=== PATIENT | female | born 1940 | race African-American/Black ===

== ENCOUNTER 2017-04-17 06:57 | Day surgery (SDC) | payer MEDICARE, MEDICAID ==
[~2017-04-17 06:57] MED LIST: FENTANYL CITRATE INJ/PF 100 MCG/2 ML AMPUL ONE; KETOROLAC TROMETHAMINE 0.45% 4 DROP/0.4 ML DROPERETTE OS PRN; MIDAZOLAM 2 MG/2 ML INJ ONE
[2017-04-17] MEDS ORDERED: LIDOCAINE 1% INJ-PF (10 MG/ML) 30 ML SDV ONE (07:08)
[2017-04-17] MEDS ORDERED: CHONDR SU A NA/HYALUR INTRAOC KIT (SURGICARE) ONE (07:08)
[2017-04-17] MEDS ORDERED: EPINEPHRINE INJ/PF 1 MG/1 ML AMPULE ONE (07:08)
[2017-04-17] MEDS: BESIFLOXACIN HCL 0.6% OPH SUSP 5 ML BOTTLE OS PRN ×4 (07:24→08:41)
[2017-04-17] MEDS: CYCLOPENTOLATE 0.2%/PHENYLEPHRINE 1% OPH SOLN 2 ML OS PRN ×3 (07:24→07:44)
[2017-04-17] MEDS: TROPICAMIDE 1% OPH SOLN 3 ML OS PRN ×3 (07:24→07:44)
[2017-04-17] MEDS: TETRACAINE HCL 0.5% OPH SOLN 2 ML OS PRN ×3 (07:24→07:53)
[2017-04-17] MEDS ORDERED: LIDOCAINE 2% INJ (20 MG/ML) 20 ML MDV ONE (08:12)
[2017-04-17] MEDS ORDERED: BUPIVACAINE HCL 0.75% INJ/PF (7.5 MG/1 ML) 10 ML SDV ONE (08:13)
[2017-04-17] MEDS ORDERED: HYALURONIDASE INJ 150 UNIT/1 ML VIAL ONE (08:13)
[2017-04-17] MEDS: TOBRAMYCIN SULFATE/DEXAMETH OPH OINTMENT 3.5 GM ONE ×2 (08:41)
[2017-04-17] MEDS ORDERED: CHONDR SU A NA/HYALUR SOD 0.5 ML DISP.SYRIN ONE (10:23)
[2017-04-17] MEDS ORDERED: FLUMAZENIL INJ 0.5 MG/5 ML VIAL IV ONE (11:45)
--- NOTE | 2017-04-21 12:18 | [facility] DISCHARGE SUMMARY E ---
[facility] Discharge Summary NAME: JOHNATHAN FUNK AGE: 76Y ADMITTED: 04/17/2017 DISCHARGED: 04/17/2017 HOSPITAL COURSE: This is a 76-year-old female who underwent complex cataract extraction of the left eye. DIAGNOSES: 1. Cataract, left eye. 2. Pupil miosis, left eye. INDICATIONS: She underwent surgery because she was difficulty seeing words on the TV as well as unable to see words in her bible. DISCHARGE INSTRUCTIONS: She should be on a regular diet. No bending at her waist. No heavy lifting. She should keep her pressure patch on until I see her for a 1 day visit and not use any drops. I will see her for her 1 day postoperative tomorrow. DICTATING PHYSICIAN: FLORENCIO CASTELLANO M.D. [id number] PHY#: [id number] ID: [id number] JOB#: [id number] ACCT: [id number] cc:FLORENCIO CASTELLANO M.D. >
--- NOTE | 2017-04-21 12:19 | [facility] OPERATIVE REPORT E ---
[facility] Operative Report NAME: JOHNATHAN FUNK AGE: 76Y DATE OF SURGERY: 04/17/2017 ROOM: PREOPERATIVE DIAGNOSES: 1. Cataract, left eye. 2. Pupil miosis of the left eye. POSTOPERATIVE DIAGNOSES: 1. Cataract, left eye. 2. Pupil miosis of the left eye. OPERATION: Complex cataract extraction with use of a Malyugin ring due to pupil miosis. SURGEON: FLORENCIO CASTELLANO M.D. ANESTHESIA: Retrobulbar block with 2% lidocaine with 0.75% Marcaine in a 50/50 mixture with vitreous. PROCEDURE: After obtaining appropriate consent, the patient's left eye was prepped and draped in sterile fashion as well as the surgeon in a sterile manner and cataract surgery was started. First a paracentesis blade was used to make a small side-port incision. Viscoelastic was used to inflate the anterior chamber. Next a 2.4 mm incision was made with the paracentesis blade. A continuous capsulorrhexis incision was made using a cystotome and Utrata forceps. Following this hydrodissection was carried out to make the lens fully loose and mobile and it was rotated 90 degrees. Following this, a ozvxtq-zrh-thqnprd technique was used to phacoemulsify the lens with a CDE of 8.93. The remaining cortex was removed with irrigation/aspiration. Provisc was instilled into the capsular bag to inflate the bag. A SN60WF, 21.0 diopter lens was placed. The remaining viscoelastic material was removed with irrigation/aspiration. Following this, a 10-0 nylon suture was used to close the incision and it was found to be watertight. Vigamox was instilled in the eye and a protective shield was placed over the eye. The patient returned to the postoperative recovery in stable condition. Prior to making the capsulorrhexis, a Malyugin ring was inserted due to pupil miosis. This was removed at the end of the case. Prior to performing the procedure, a retrobulbar block was performed due to patient eye movement. Patient tolerated this well. Due to this, a pressure *------* to discharge. DICTATING PHYSICIAN: FLORENCIO CASTELLANO M.D. [id number] PHY#: [id number] ID: [id number] JOB#: [id number] ACCT: [id number] cc:FLORENCIO CASTELLANO M.D. >
== END 2017-04-17 10:08 | disposition home or self-care (01) ==
LOC: SC 06:57
PROVIDERS: ATTEND Internal Medicine
PROC: 08RK3JZ Replacement of Left Lens with Synthetic Substitute, Percutaneous Approach (ICD-10-PCS; principal; 2017-04-17 08:00)
DX: H25.812 Combined forms of age-related cataract, left eye (principal); Z96.1 Presence of intraocular lens; H40.1133 Primary open-angle glaucoma, bilateral, severe stage; E11.9 Type 2 diabetes mellitus without complications; H57.03 Miosis; I10 Essential (primary) hypertension; J44.9 Chronic obstructive pulmonary disease, unspecified; M19.90 Unspecified osteoarthritis, unspecified site; G40.909 Epilepsy, unspecified, not intractable, without status epilepticus; Z96.641 Presence of right artificial hip joint; Z79.02 Long term (current) use of antithrombotics/antiplatelets; I25.2 Old myocardial infarction; Z79.82 Long term (current) use of aspirin; Z86.73 Personal history of transient ischemic attack (TIA), and cerebral infarction without residual deficits
CPT/HCPCS: 66982; 82962; V2632; J3490 ×7; J2250; A9270; J0171; J3010; J3470; 142

== ENCOUNTER 2017-12-11 00:51 | Inpatient (IN) | payer MEDICARE, MEDICAID ==
[2017-12-11] MEDS ORDERED: HYDROCODONE/ACETAMINOPHEN 5-325 MG TABLET PO ONE (01:07)
--- NOTE | 2017-12-11 01:10 | ER Document Report ---
ED Medical Screen (RME) - General Chief Complaint: Fall Stated Complaint: FALL/RIGHT THIGH PAIN Time Seen by Provider: 12/11/17 01:05 Mode of Arrival: Wheelchair Information source: Relative Notes: 76-year-old female presents to ED for a fall around 4:30 PM today. Her son picked her up and put her in the chair. Patient is here in the emergency room now for complaint of severe pain in [place]. Daughter states that they tried cold packs hot packs gave the care of body pain medicine and rub green alcohol on her leg and patient is continued to cry in pain. Patient has dementia. Patient has severe pain with any movement that moves the thigh. Patient is sitting in a chair unable to tell if there is any internal or external rotation. I have greeted and performed a rapid initial assessment of this patient. A comprehensive ED assessment and evaluation of the patient, analysis of test results and completion of medical decision making process will be conducted by an additional ED providers. TRAVEL OUTSIDE OF THE [place] IN LAST 30 DAYS: No - Related Data Allergies/Adverse Reactions: Penicillins Allergy (Mild, Verified 04/17/17 07:32) prednisone Allergy (Mild, Verified 04/17/17 07:32) Past Medical History - Past Medical History Cardiac Medical History: Reports: Hx Congestive Heart Failure, Hx Coronary Artery Disease, Hx Heart Attack - JANUARY 2013, Hx Hypercholesterolemia, Hx Hypertension Pulmonary Medical History: Reports: Hx Asthma Denies: Hx Tuberculosis Neurological Medical History: Reports: Hx Seizures - 2016. Denies: Hx Cerebrovascular Accident Endocrine Medical History: Reports: Hx Diabetes Mellitus Type 2 Renal/ Medical History: Reports: Hx Kidney Stones. Denies: Hx Peritoneal Dialysis GI Medical History: Denies: Hx Hepatitis, Hx Hiatal Hernia, Hx Ulcer Musculoskeltal Medical History: Reports Hx Arthritis Psychiatric Medical History: Reports: Hx Dementia, Hx Depression Infectious Medical History: Denies: Hx Hepatitis Past Surgical History: Reports: Hx Cardiac Catheterization, Hx Coronary Stent - 2002, 2012, Hx Orthopedic Surgery - TOTAL RIGHT HIP. Denies: Hx Appendectomy, Hx Bowel Surgery, Hx Section, Hx Cholecystectomy, Hx Coronary Artery Bypass Graft, Hx Gastric Bypass Surgery, Hx Herniorrhaphy, Hx Hysterectomy, Hx Mastectomy, Hx Open Heart Surgery, Hx Pacemaker, Hx Tonsillectomy, Hx Tubal Ligation - Immunizations Hx Diphtheria, Pertussis, Tetanus Vaccination: Yes
--- NOTE | 2017-12-11 01:53 | RADIOLOGY REPORT (SQ) ---
EXAM DESCRIPTION: 1. Single view pelvis with 2 views of the right hip. 2. 2 views of the right femur. CLINICAL HISTORY: fell pain in right leg COMPARISON: None. FINDINGS/IMPRESSION: There is a single view of the pelvis, 2 views of the right hip, and 2 views of the right femur. Right total hip arthroplasty. Osteopenia. Joint space narrowing of the left hip. Oblique mildly displaced fracture of the proximal right femoral diaphysis just below the distal tip of the intramedullary component of the right hip prosthesis.
--- NOTE | 2017-12-11 01:55 | RADIOLOGY REPORT (SQ) ---
EXAM DESCRIPTION: CHEST SINGLE VIEW CLINICAL HISTORY: FEMUR FX COMPARISON: 01/14/2016 FINDINGS: Single frontal view of the chest. Atherosclerotic calcification and tortuosity of the thoracic aorta. Heart is not enlarged. No consolidation, pneumothorax, or pleural effusion. No displaced rib fractures identified. Upper abdominal soft tissues are unremarkable. IMPRESSION: 1. No acute pulmonary process identified.
[2017-12-11] MEDS ORDERED: MORPHINE SULFATE 10 MG/ML INJ IV ONE (02:16)
--- NOTE | 2017-12-11 02:19 | ER Document Report ---
ED General - General Chief Complaint: Thigh Pain Stated Complaint: FALL/RIGHT THIGH PAIN Time Seen by Provider: 12/11/17 01:05 Mode of Arrival: Wheelchair Notes: Patient is a 76-year-old female presents with complaint of pain in the right thigh. She fell trying to back in the bed. She does have history of previous hip replacement was done by Dr. Clarke many years ago. Dr. Clarke since retired. No fevers. No vomiting. She said she did bump her head but has no headache and no loss of consciousness and is not nauseous. She is not on blood thinners. No neck or back pain. She denies any other locations of pain. No other complaints at this time. Her primary care doctor is Dr. Feldman. TRAVEL OUTSIDE OF THE [place] IN LAST 30 DAYS: No - Related Data Allergies/Adverse Reactions: Penicillins Allergy (Mild, Verified 04/17/17 07:32) prednisone Allergy (Mild, Verified 04/17/17 07:32) Past Medical History - General Information source: Relative - Social History Smoking Status: Never Smoker Family History: Reviewed & Not Pertinent Patient has suicidal ideation: No Patient has homicidal ideation: No - Past Medical History Cardiac Medical History: Reports: Hx Congestive Heart Failure, Hx Coronary Artery Disease, Hx Heart Attack - JANUARY 2013, Hx Hypercholesterolemia, Hx Hypertension Pulmonary Medical History: Reports: Hx Asthma Denies: Hx Tuberculosis Neurological Medical History: Reports: Hx Seizures - 2016. Denies: Hx Cerebrovascular Accident Endocrine Medical History: Reports: Hx Diabetes Mellitus Type 2 Renal/ Medical History: Reports: Hx Kidney Stones. Denies: Hx Peritoneal Dialysis GI Medical History: Denies: Hx Hepatitis, Hx Hiatal Hernia, Hx Ulcer Musculoskeltal Medical History: Reports Hx Arthritis Psychiatric Medical History: Reports: Hx Dementia, Hx Depression Infectious Medical History: Denies: Hx Hepatitis Past Surgical History: Reports: Hx Cardiac Catheterization, Hx Coronary Stent - 2002, 2012, Hx Orthopedic Surgery - TOTAL RIGHT HIP. Denies: Hx Appendectomy, Hx Bowel Surgery, Hx Section, Hx Cholecystectomy, Hx Coronary Artery Bypass Graft, Hx Gastric Bypass Surgery, Hx Herniorrhaphy, Hx Hysterectomy, Hx Mastectomy, Hx Open Heart Surgery, Hx Pacemaker, Hx Tonsillectomy, Hx Tubal Ligation - Immunizations Hx Diphtheria, Pertussis, Tetanus Vaccination: Yes Hx Pneumococcal Vaccination: 07/04/11 Review of Systems - Review of Systems Notes: My Normal Review Basic REVIEW OF SYSTEMS: CONSTITUTIONAL : Denies fever, chills, or sweats. Denies recent illness. EENT: Denies eye, ear, throat, or mouth pain or symptoms. Denies nasal or sinus congestion. RESPIRATORY: Denies cough, cold, or chest congestion. Denies shortness of breath, difficulty breathing, or wheezing. GASTROINTESTINAL: Denies abdominal pain. Denies nausea, vomiting, or diarrhea. Denies constipation. Last BM: MUSCULOSKELETAL: Right thigh pain. SKIN: Denies rash or skin lesions. NEUROLOGICAL: Denies altered mental status or loss of consciousness. Denies headache. Denies weakness or paralysis or loss of use of either side. Denies problems with gait or speech. Denies sensory or motor loss. ALL OTHER SYSTEMS REVIEWED AND NEGATIVE. Physical Exam - Vital signs Vitals: Temp Pulse Resp BP Pulse Ox 96.7 F L 76 16 109/46 L 100 12/11/17 01:07 12/11/17 01:12/11/17 01:12/11/17 01:12/11/17 01:07 - Notes Notes: General Appearance: Well nourished, alert, cooperative, no acute distress, moderate obvious discomfort. Vitals: reviewed, See vital signs table. Head: no swelling or tenderness to the head Eyes: PERRL, EOMI, Conjuctiva clear Mouth: No decreasd moisture Neck: Supple, no neck tenderness, No step offs or deformities. Lungs: No wheezing, No rales, No rhonci, No accessory muscle use, good air exchange bilaterally. Heart: Normal rate, Regular rythm, No murmur, no rub Abdomen: Normal BS, soft, No rigidity, No abdominal tenderness, No guarding, no rebound, no abdominal masses, no organomegaly Extremities: strength 5/5 in all extremities, good pulses in all extremities, pain to palpation of left thigh. Pelvis is stable. No pain to palpation of the remainder of the right lower extremit. both uppr extremities and left lower extremity have no pain with range of motion or palpation.no swelling or tenderness in the extremities, no edema. Skin: warm, dry, appropriate color, no rash Neuro: speech clear, oriented x 3, normal affect, responds appropriately to questions. Cranial nerves II through XII are intact. Distal sensation intact. No focal weakness on exam with exception of patient not wanting to move her right leg because of pain. Course - Re-evaluation Re-evalutation: 12/11/17 05:21 Patient does have some anemia. I reviewed her previous labs and appears a hemoglobin usually runs between 8 and 9. Tonight 7.8. I will give her some blood so that she does have a proper hemoglobin in case she does need surgery. I did explain this to the patient and her daughter and they agree with plan. I did speak with Dr. Arteaga who agrees to admit the patient. I have put in a consult for Dr. Johnson who is covering for orthopedics. Dictation of this chart was performed using voice recognition software; therefore, there may be some unintended grammatical errors. 12/11/17 05:22 - Vital Signs Vital signs: Temp Pulse Resp BP Pulse Ox 96.7 F L 76 16 109/46 L 100 12/11/17 01:07 12/11/17 01:07 12/11/17 01:07 12/11/17 01:07 12/11/17 05:00 - Laboratory Result Diagrams: 12/11/17 02:58 12/11/17 02:58 Laboratory results interpreted by me: 12/11/17 12/11/17 12/11/17 02:58 02:58 05:08 RBC 2.56 L Hgb 7.8 L Hct 23.0 L Plt Count 98 L Sodium 134.5 L BUN 27 H Est GFR ( Amer) 52 L Est GFR (Non-Af Amer) 43 L Glucose 117 H Crossmatch See Detail Discharge - Discharge Clinical Impression: Anemia Qualifiers: Anemia type: unspecified type Qualified Code(s): D64.9 - Anemia, unspecified Femur fracture, right Qualifiers: Encounter type: initial encounter Femur location: unspecified portion of femur Fracture type: closed Fracture morphology: unspecified fracture morphology Qualified Code(s): S72.91XA - Unspecified fracture of right femur, initial encounter for closed fracture Condition: Stable Disposition: ADMITTED INPATIENT Admitting Provider: Erasmo Unit Admitted: Telemetry Referrals: TRIXIE FELDMAN MD [Primary Care Provider] - Follow up as needed
[2017-12-11 03:15] LABS: ABSOLUTE EOSINOPHILS # (AUTO) 0.1 10^3/uL (0.0-0.6); ABSOLUTE LYMPHOCYTES (AUTO) 1.4 10^3/uL (0.5-4.7); ABSOLUTE MONOCYTES (AUTO) 0.4 10^3/uL (0.1-1.4); BASOPHILS % (AUTO) 0.7 % (0-2); EOSINOPHILS % (AUTO) 1.5 % (0-6); LYMPHOCYTES % (AUTO) 20.1 % (13-45); MEAN CORPUSCULAR HEMOGLOBIN 30.6 pg (27.0-33.4); MEAN CORPUSCULAR VOLUME 90 fl (80-97); MONOCYTES % (AUTO) 6.2 % (3-13); RED BLOOD COUNT 2.56 10^6/uL (3.72-5.28); RED CELL DISTRIBUTION WIDTH 12.8 % (11.5-14.0); SEGMENTED NEUTROPHILS % (AUTO) 71.5 % (42-78); TOTAL CELLS COUNTED % (AUTO) 100 %
[2017-12-11 03:19] LABS: INTERNATIONAL RATION (INR) 1.03; PROTHROMBIN TIME 14.2 SEC (11.4-15.4)
[2017-12-11 03:20] LABS: PARTIAL THROMBOPLASTIN TIME 29.4 SEC (23.5-35.8)
[2017-12-11 03:27] LABS: ANION GAP 9 (5-19); BLOOD UREA NITROGEN 27 mg/dL (7-20); CALCIUM 9.4 mg/dL (8.4-10.2); CARBON DIOXIDE 24 mmol/L (22-30); CHLORIDE 102 mmol/L (98-107); GLUCOSE 117 mg/dL (75-110); POTASSIUM 4.4 mmol/L (3.6-5.0); SODIUM 134.5 mmol/L (137-145)
[2017-12-11 03:35] LABS: PLATELET COUNT 98 10^3/uL (150-450)
[2017-12-11 03:38] LABS: HEMOGLOBIN 7.8 g/dL (12.0-15.5)
[2017-12-11] MEDS ORDERED: NORMAL SALINE 250 ML IV PRN (05:11)
--- NOTE | 2017-12-11 06:58 | PDOC CONSULTATION ---
Consultation Consult Date: 12/11/17 Consult reason:: Right femur fracture History of Present Illness Admission Date/PCP: 12/11/17 06:02 TRIXIE FELDMAN History of Present Illness: JOHNATHAN FUNK is a 76 year old female The patient is a 76-year-old black female with a history of chronic anemia who is status post a right hip arthroplasty at some point in the distant past. She fell yesterday and sustained a right periprosthetic femur fracture. She is brought to the emergency room. Anemia is being treated with transfusion. Orthopedics is consulted for fracture management. Past Medical History Cardiac Medical History: Reports: Congestive Heart Failure, Coronary Artery Disease, Myocardial Infarction - JANUARY 2013, Hyperlipidema, Hypertension Pulmonary Medical History: Reports: Asthma Denies: Tuberculosis Neurological Medical History: Reports: Seizures - 2016 Endocrine Medical History: Reports: Diabetes Mellitus Type 2 GI Medical History: Denies: Hepatitis, Hiatal Hernia Musculoskeltal Medical History: Reports: Arthritis Psychiatric Medical History: Reports: Dementia, Depression Hematology: Reports: Anemia Denies: Sickle Cell Disease Past Surgical History Past Surgical History: Reports: Cardiac Catheterization, Coronary Stent - 2002, 2012, Orthopedic Surgery - TOTAL RIGHT HIP Denies: Amputation, Appendectomy, Section, Cholecystectomy, Coronary Artery Bypass Graft, Gastric Bypass Surgery, Herniorrhaphy, Hysterectomy, Mastectomy, Pacemaker, Tonsillectomy, Tubal Ligation Social History Information Source: Patient, [facility] Records Smoking Status: Never Smoker Frequency of Alcohol Use: None Hx Recreational Drug Use: No Drugs: None Hx Prescription Drug Abuse: No Family History Family History: Reviewed & Not Pertinent Parental Family History Reviewed: No Children Family History Reviewed: No Sibling(s) Family History Reviewed.: No Medication/Allergy Home Medications: Aspirin [Ecotrin 81 mg EC Tablet] 81 mg PO DAILY #30 tabec 01/19/16 Clopidogrel Bisulfate [Plavix 75 mg Tablet] 75 mg PO DAILY #30 tablet 01/19/16 Famotidine 20 mg PO BID #60 tablet 01/19/16 Haloperidol [Haldol 0.5 mg Tablet] 0.25 mg PO Q12 #30 tablet 01/19/16 Levetiracetam 500 mg PO BID #300 ml 01/19/16 Metoprolol Tartrate [Lopressor 50 mg Tablet] 50 mg PO Q12 #60 tablet 01/19/16 Mirtazapine [Remeron 15 mg Tablet] 30 mg PO QHS #30 tablet 01/19/16 Multivitamin [Tab-A-Mikael (Multiple Vitamin) Tablet] 1 tab PO DAILY #30 tablet Rivastigmine [Exelon 4.6 mg/24 Hr Transdermal Patch] 1 each TD NOON #30 patch.td24 01/19/16 Simvastatin [Zocor 10 mg Tablet] 10 mg PO QHS #30 tablet 01/19/16 Valsartan [Diovan 160 mg Tablet] 320 mg PO DAILY #30 tablet 01/19/16 Besifloxacin HCl [Besivance 0.6% Oph Susp 5 ml] 1 drop OP TID 04/14/17 Difluprednate [Durezol] 1 drop OP ASDIR PRN 04/14/17 Nepafenac [Ilevro] 1 drop OP ASDIR PRN 04/14/17 Sitagliptin Phosphate [Januvia 50 mg Tablet] 50 mg PO DAILY 04/14/17 Allergies/Adverse Reactions: Penicillins Allergy (Mild, Verified 04/17/17 07:32) prednisone Allergy (Mild, Verified 04/17/17 07:32) Review of Systems All systems: as per PMH Physical Exam Vital Signs: Temp Pulse Resp BP Pulse Ox 36.6 C 76 13 117/42 L 100 12/11/17 06:25 12/11/17 01:07 12/11/17 06:37 12/11/17 06:37 12/11/17 06:37 Physical Exam: Patient is largely nonverbal this morning. Lying on ER [place]. Accompanied by family member General appearance: PRESENT: no acute distress Head exam: PRESENT: normocephalic Respiratory exam: PRESENT: unlabored Cardiovascular exam: PRESENT: RRR Pulses: PRESENT: +1 pedal pulses bilateral Vascular exam: PRESENT: normal capillary refill GI/Abdominal exam: PRESENT: soft Rectal exam: PRESENT: deferred Extremities exam: PRESENT: other - Right lower extremity slightly internally rotated. Neurovascular examination of the foot is intact. Neurological exam: PRESENT: alert, awake, oriented to person, oriented to place , oriented to time, oriented to situation. ABSENT: motor sensory deficit Psychiatric exam: PRESENT: appropriate affect, flat affect. ABSENT: homicidal ideation, suicidal ideation Skin exam: PRESENT: dry, intact, warm. ABSENT: cyanosis, rash Results Impressions: Femur X-Ray 12/11/17 01:05 FINDINGS/IMPRESSION: There is a single view of the pelvis, 2 views of the right hip, and 2 views of the right femur. Right total hip arthroplasty. Osteopenia. Joint space narrowing of the left hip. Oblique mildly displaced fracture of the proximal right femoral diaphysis just below the distal tip of the intramedullary component of the right hip prosthesis. Hip/Pelvis X-Ray 12/11/17 01:05 FINDINGS/IMPRESSION: There is a single view of the pelvis, 2 views of the right hip, and 2 views of the right femur. Right total hip arthroplasty. Osteopenia. Joint space narrowing of the left hip. Oblique mildly displaced fracture of the proximal right femoral diaphysis just below the distal tip of the intramedullary component of the right hip prosthesis. Status: Imported from PACS Assessment & Plan - Diagnosis (1) Periprosthetic fracture around internal prosthetic hip joint Is this a current diagnosis for this admission?: Yes Plan: 76-year-old black female with multiple comorbidities with a right femoral periprosthetic fracture around a hybrid (cemented stem, press-fit cup) hip arthroplasty. Stem appears to be solid in the proximal femur, cup demonstrates no eccentric wear.Plan for ORIF pendingfm edical [place] and OR availability - Time Time Spent: 50 to 70 Minutes Anticipated discharge: SNF Within: Other
--- NOTE | 2017-12-11 09:23 | EKG REPORT ---
SEVERITY:- ABNORMAL ECG - SINUS RHYTHM FIRST DEGREE AV BLOCK PROBABLE ANTEROSEPTAL INFARCT, AGE INDETERM ABNORMAL T, CONSIDER ISCHEMIA, ANT-LAT LEADS : Confirmed by: Gopi Camarillo 11-Dec-2017 09:21:54
[2017-12-11] MEDS ORDERED: INSULIN LISPRO 100 UNIT/ML 3 ML VIAL SUBCUT PRN (09:26)
[2017-12-11] MEDS ORDERED: GLUCAGON,HUMAN RECOMB 1 MG INJ IM PRN (09:26)
[2017-12-11] MEDS ORDERED: DEXTROSE 50%-WATER 25 GM/50 ML DISP.SYRIN IV PRN ×2 (09:26)
[2017-12-11] MEDS ORDERED: DEXTROSE 40% GEL 15 GM TUBE PO PRN ×2 (09:26)
[2017-12-11] MEDS ORDERED: LANSOPRAZOLE 30 MG TAB.RAP.DR PO ONE ×2 (09:45→14:00)
[2017-12-11] MEDS: HYDROMORPHONE HCL INJ/PF 2 MG/ML AMPULE IV PRN ×3 (10:14→21:19)
--- NOTE | 2017-12-11 10:56 | PDOC CONSULTATION ---
Consultation Consult Date: 12/11/17 Attending physician:: TRIXIE FELDMAN Consult reason:: Preop clearance, abnormal EKG History of Present Illness Admission Date/PCP: 12/11/17 06:02 TRIXIE FELDMAN Patient complains of: Hip pain History of Present Illness: The patient is a 76-year-old black female with a history of chronic anemia who is status post a right hip arthroplasty at some point in the distant past. She fell yesterday and sustained a right periprosthetic femur fracture. She is brought to the emergency room. Anemia is being treated with transfusion. Orthopedics is consulted for fracture management. This history was reviewed and confirmed. Patient's daughter and granddaughter at bedside. They claim that patient slipped and fell. There was no loss of consciousness. Patient does have known history of coronary artery disease with 2 prior to stent placement. Last stent was approximately 3 years ago. They also gave history of a prior myocardial infarction. 12-lead EKG obtained showed evidence of old infarction. EKG is relatively unchanged. Patient on repeated questioning denies any chest pain. There is no history of shortness of breath. Patient has been ambulatory but activities has been noted to be limited. Past Medical History Cardiac Medical History: Reports: Congestive Heart Failure, Coronary Artery Disease, Myocardial Infarction - JANUARY 2013, Hyperlipidema, Hypertension Pulmonary Medical History: Reports: Asthma Denies: Tuberculosis Neurological Medical History: Reports: Seizures - 2016 Endocrine Medical History: Reports: Diabetes Mellitus Type 2 GI Medical History: Denies: Hepatitis, Hiatal Hernia Musculoskeltal Medical History: Reports: Arthritis Psychiatric Medical History: Reports: Dementia, Depression Hematology: Reports: Anemia Denies: Sickle Cell Disease Past Surgical History Past Surgical History: Reports: Cardiac Catheterization, Coronary Stent - 2002, 2012, Orthopedic Surgery - TOTAL RIGHT HIP Denies: Amputation, Appendectomy, Section, Cholecystectomy, Coronary Artery Bypass Graft, Gastric Bypass Surgery, Herniorrhaphy, Hysterectomy, Mastectomy, Pacemaker, Tonsillectomy, Tubal Ligation Social History Information Source: Relative Smoking Status: Never Smoker Frequency of Alcohol Use: None Hx Recreational Drug Use: No Drugs: None Hx Prescription Drug Abuse: No - Advance Directive Resuscitation Status: Full Code Surrogate healthcare decision maker:: Patient's daughter and granddaughter are the surrogate decision maker Family History Family History: Hypertension Parental Family History Reviewed: Yes Children Family History Reviewed: Yes Sibling(s) Family History Reviewed.: Yes Medication/Allergy Allergies/Adverse Reactions: Penicillins Allergy (Mild, Verified 04/17/17 07:32) prednisone Allergy (Mild, Verified 04/17/17 07:32) Review of Systems Review of Systems: Please see history of present illness and past medical history as wall. Constitutional: No fever or chills reported. Head : No recent chronic headaches, recent head injury. Eyes: No recent eye pain, diplopia, redness, discharge, acute visual changes. Ears: No recent chronic ear pain, acute hearing loss, ear discharge. Oral cavity: No recent ulcerations, bleeding, oral cavity discomfort. Neck: No recent acute neck pain reported. Hematologic: No recent easy bruising or bleeding or hematologic malignancy reported. Lymphatic: No recent lymphatic malignancy, chronic lymphadenopathy reported yet Cardiovascular system review: See history of present illness. Respiratory system review: No recent chronic cough, hemoptysis, blood clots in the lungs reported. Mild Shortness of breath on exertion Gastrointestinal system review: Negative for any recent acute or chronic abdominal pain, hematemesis, melena, recent change in bowel habits. Genitourinary system review: No recent acute or chronic hematuria, flank pain, UTI etc. reported. Skin system review: Negative for any recent abnormal bruising, no rash, no pruritus reported. Neurologic: No prior history of strokes, mini strokes, seizure disorder. Psychologic: No history of major psychosis or major depression reported. Musculoskeletal: Minor aches and pains reported. No acute joint swelling reported. Recent fall with right hip fracture. Endocrine: No recent polyuria, polydipsia, recent heat or cold intolerance. Physical Exam Vital Signs: Temp Pulse Resp BP Pulse Ox 97.9 F 53 L 16 132/41 H 90 L 12/11/17 10:36 12/11/17 10:36 12/11/17 10:36 12/11/17 10:36 12/11/17 10:36 Intake & Output 12/10/17 12/11/17 12/12/17 06:59 06:59 06:59 Intake Total 350 Balance 350 Exam: GENERAL: well-nourished and in no acute distress. Alert and oriented x2, patient not oriented to time this morning. HEAD: Atraumatic, normocephalic. EYES: Pupils equal round and reactive to light, extraocular movements intact, sclera anicteric, conjunctiva are normal. ENT: TMs normal, nares patent, oropharynx clear without exudates. Moist mucous membranes. No oral ulcerations or bleeding gums noted NECK: supple without lymphadenopathy. Trachea is central. No cervical or axillary lymphadenopathy noted. Carotids are 2+, JVD WNL LUNGS: Respiration seems nonlabored, no significant accessory muscle action noted. Breath sounds clear to auscultation bilaterally and equal noted. No wheezes rales or rhonchi noted. No significant dullness noted on percussion. CHEST: Palpation of the chest wall shows no significant chest wall tenderness. No other significant abnormalities noted. 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 ABDOMEN: Soft, no significant tenderness appreciated, normoactive bowel sounds. No guarding, no rebound. No rigidity noted . No masses appreciated. EXTREMITIES: Pedal pulses are 1-2+, no calf tenderness noted. No clubbing or cyanosis.trace pedal edema noted NEUROLOGICAL: Focused neurological exam showed no significant neurologic deficit. Normal speech, no focal weakness appreciated. Right lower extremity strength not tested. PSYCH: Normal mood, normal affect. Judgment and insight within normal limits. SKIN: No significant ecchymosis, rash, ulcerations or signs of pruritus noted. MUSCULOSKELETAL EXAM: No significant joint swelling noted. Findings consistent with right hip fracture. Results EKG Comments: Sinus rhythm, QS complex V1 to V3 along with T-wave inversion suggestive of anterior UT age indeterminate. Impressions: Femur X-Ray 12/11/17 01:05 FINDINGS/IMPRESSION: There is a single view of the pelvis, 2 views of the right hip, and 2 views of the right femur. Right total hip arthroplasty. Osteopenia. Joint space narrowing of the left hip. Oblique mildly displaced fracture of the proximal right femoral diaphysis just below the distal tip of the intramedullary component of the right hip prosthesis. Hip/Pelvis X-Ray 12/11/17 01:05 FINDINGS/IMPRESSION: There is a single view of the pelvis, 2 views of the right hip, and 2 views of the right femur. Right total hip arthroplasty. Osteopenia. Joint space narrowing of the left hip. Oblique mildly displaced fracture of the proximal right femoral diaphysis just below the distal tip of the intramedullary component of the right hip prosthesis. Assessment & Plan - Diagnosis (1) Coronary artery disease Qualifiers: Coronary Disease-Associated Artery/Lesion type: [place] artery [place] vs. transplanted heart: [place] heart Is this a current diagnosis for this admission?: Yes (2) Abnormal EKG Is this a current diagnosis for this admission?: Yes (3) Anemia Qualifiers: Anemia type: unspecified type Qualified Code(s): D64.9 - Anemia, unspecified Is this a current diagnosis for this admission?: Yes (4) Femur fracture, right Qualifiers: Encounter type: initial encounter Femur location: unspecified portion of femur Fracture type: closed Fracture morphology: unspecified fracture morphology Qualified Code(s): S72.91XA - Unspecified fracture of right femur, initial encounter for closed fracture Is this a current diagnosis for this admission?: Yes (6) Preoperative cardiovascular examination Is this a current diagnosis for this admission?: Yes - Notes Notes: Patient is a elderly lady with multiple medical problems but seems stable from cardiac standpoint except for abnormal EKG which is relatively unchanged from before. Patient has not been noted to have any chest pain or any significant shortness of breath. Patient has sustained a hip fracture, around the prosthetic right hip. Patient does represent increased surgical risk but not in the prohibitive range. This is mainly due to general debility, advanced age, underlying dementia but not in the proliferative range. Have ordered a 2D echo just to evaluate LVEF and help with perioperative management should any cardiovascular complications arise. We will repeat an EKG. As regards to renal insufficiency, may consider slow IV fluids. As regards coronary artery disease patient seems symptomatically stable. No ischemia evaluation planned unless patient has obvious symptoms. We will continue to follow patient. - Time Time Spent: 30 to 50 Minutes - CODE STATUS was discussed, patient remains full code. Surrogate decision-maker unchanged. Multiple medical problems were addressed. More than 50% of the time spent coordinating care, discussing management plans with involved caregivers. Management plans discussed with involved personnels. Medical decision making was of moderate to high complexity , patient's has multiple comorbidities. Medications reviewed and adjusted accordingly: Yes
[2017-12-11] MEDS: NORMAL SALINE 1000 ML 1,000 ML IV PRN (15:57)
[2017-12-11] MEDS ORDERED: BUDESONIDE/FORMOTEROL 160-4.5 MCG 60 PUFF/6 GM MDI IH PRN (20:01)
--- NOTE | 2017-12-11 20:01 | PDOC H&P ---
History of Present Illness Admission Date/PCP: 12/11/17 06:02 TRIXIE FELDMAN Patient complains of: Fall at home, Right thigh pain History of Present Illness: Patient is a 76-year-old female known to my practice was brought to the ED due to incident fall at home while she was trying to get back to her bed after using her bathroom at home. She subsequently developed right thigh pain. She had right hip arthroplasty several years ago. She denied any preceding chest pain, palpitation, dizziness, vertigo, nausea or vomiting. She reported hitting her head on the floor but denied any loss of consciousness or focal weakness. Her initial evaluation in the ED was remarkable for right femur fracture and significant anemia. 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 Past Medical History Cardiac Medical History: Reports: Congestive Heart Failure, Coronary Artery Disease, Myocardial Infarction - JANUARY 2013, Hyperlipidema, Hypertension Pulmonary Medical History: Reports: Asthma Denies: Tuberculosis Neurological Medical History: Reports: Seizures - 2016 Endocrine Medical History: Reports: Diabetes Mellitus Type 2 GI Medical History: Denies: Hepatitis, Hiatal Hernia Musculoskeltal Medical History: Reports: Arthritis Psychiatric Medical History: Reports: Dementia, Depression Hematology: Reports: Anemia Denies: Sickle Cell Disease Past Surgical History Past Surgical History: Reports: Cardiac Catheterization, Coronary Stent - 2012, Orthopedic Surgery - TOTAL RIGHT HIP Denies: Amputation, Appendectomy, Section, Cholecystectomy, Coronary Artery Bypass Graft, Gastric Bypass Surgery, Herniorrhaphy, Hysterectomy, Mastectomy, Pacemaker, Tonsillectomy, Tubal Ligation Social History Smoking Status: Never Smoker Frequency of Alcohol Use: None Hx Recreational Drug Use: No Drugs: None Hx Prescription Drug Abuse: No - Advance Directive Resuscitation Status: Full Code Family History Family History: Hypertension Parental Family History Reviewed: Yes Children Family History Reviewed: Yes Sibling(s) Family History Reviewed.: Yes Medication/Allergy Home Medications: Aspirin [Aspirin 81 mg Chewable Tablet] 81 mg PO DAILY 12/11/17 Bimatoprost [Lumigan 0.01% Oph Soln 2.5 ml/Bottle] 1 drop OU QHS 12/11/17 Brimonidine Tartrate/Timolol [Combigan 0.2%-0.5% Eye Drops] 1 drop OU BID Budesonide/Formoterol Fumarate [Symbicort Hfa 160-4.5 Mcg Inhaler 6 gm] 2 puff IH PRN PRN 12/11/17 Difluprednate [Durezol] 1 drop OS QID 12/11/17 Haloperidol [Haldol 0.5 mg Tablet] 0.25 mg PO Q12 12/11/17 Hydroxyzine HCl [Atarax 10 mg Tablet] 5 mg PO TIDP PRN 12/11/17 Levetiracetam [Keppra 500 mg Tablet] 500 mg PO Q12 12/11/17 Metoprolol Tartrate [Lopressor 25 mg Tablet] 25 mg PO Q12 12/11/17 Multivitamin [Multiple Vitamins] 1 each PO DAILY 12/11/17 Nepafenac [Ilevro] 1 drop OS QAM 12/11/17 Rivastigmine [Exelon 4.6 Mg/24 Hr Transdermal Patch] 1 each TD DAILY 12/11/17 Simvastatin 10 mg PO QHS 12/11/17 Sitagliptin Phosphate [Januvia 50 mg Tablet] 50 mg PO DAILY 12/11/17 Valsartan [Diovan] 320 mg PO DAILY 12/11/17 Allergies/Adverse Reactions: Penicillins Allergy (Mild, Verified 04/17/17 07:32) prednisone Allergy (Mild, Verified 04/17/17 07:32) Review of Systems Constitutional: PRESENT: anorexia, fatigue, weakness. ABSENT: chills, fever(s) , headache(s) Eyes: ABSENT: visual disturbances Ears: ABSENT: hearing changes Nose, Mouth, and Throat: ABSENT: headache(s), mouth pain, sore throat, vertigo Cardiovascular: ABSENT: chest pain, dyspnea on exertion, edema, orthropnea, palpitations Respiratory: ABSENT: cough, hemoptysis Gastrointestinal: ABSENT: abdominal pain, constipation, diarrhea, hematemesis, hematochezia, nausea, vomiting Genitourinary: ABSENT: dysuria, hematuria Musculoskeletal: PRESENT: muscle weakness - generalized. ABSENT: joint swelling Integumentary: ABSENT: rash, wounds Neurological: PRESENT: abnormal gait - following her recent fall, memory loss, weakness - generalized due to deconditioning. ABSENT: convulsions, focal weakness, vertigo Psychiatric: ABSENT: anxiety, depression, homidical ideation, suicidal ideation Endocrine: PRESENT: cold intolerance. ABSENT: heat intolerance, polydipsia, polyphagia, polyuria Hematologic/Lymphatic: ABSENT: easy bleeding, easy bruising, lymphadenopathy Allergic/Immunologic: ABSENT: seasonal rhinorrhea Physical Exam Vital Signs: Temp Pulse Resp BP Pulse Ox 97.8 F 57 L 13 148/49 H 92 12/11/17 13:00 12/11/17 13:00 12/11/17 17:00 12/11/17 16:31 12/11/17 17:00 Intake & Output 12/10/17 12/11/17 12/12/17 06:59 06:59 06:59 Intake Total 650 Balance 650 General appearance: PRESENT: no acute distress, thin Head exam: PRESENT: atraumatic, normocephalic Eye exam: PRESENT: conjunctiva pink, EOMI, PERRLA. ABSENT: scleral icterus Mouth exam: PRESENT: moist Respiratory exam: PRESENT: clear to auscultation constantin, decreased breath sounds - at lung bases Cardiovascular exam: PRESENT: RRR, +S1, +S2, systolic murmur. ABSENT: gallop Murmur grade: 2 Pulses: PRESENT: normal dorsalis pedis pul, +1 pedal pulses bilateral Vascular exam: PRESENT: normal capillary refill, pallor GI/Abdominal exam: PRESENT: normal bowel sounds, soft. ABSENT: distended, guarding, mass, organolmegaly, rebound, tenderness Rectal exam: PRESENT: deferred Extremities exam: ABSENT: joint swelling, pedal edema Musculoskeletal exam: PRESENT: deformity - related to arthritis, tenderness - right proximal thigh region Neurological exam: PRESENT: alert, awake, oriented to person, oriented to place , oriented to time, oriented to situation, CN II-XII grossly intact, other - internal rotation of right leg with expressed tenderness to motion and palpation. ABSENT: motor sensory deficit Psychiatric exam: PRESENT: appropriate affect, normal mood. ABSENT: homicidal ideation, suicidal ideation Skin exam: PRESENT: dry, warm Results Laboratory Results: I reviewed her lab results on [place] and form significant part of my medical decision making. Impressions: Femur X-Ray 12/11/17 01:05 FINDINGS/IMPRESSION: There is a single view of the pelvis, 2 views of the right hip, and 2 views of the right femur. Right total hip arthroplasty. Osteopenia. Joint space narrowing of the left hip. Oblique mildly displaced fracture of the proximal right femoral diaphysis just below the distal tip of the intramedullary component of the right hip prosthesis. Hip/Pelvis X-Ray 12/11/17 01:05 FINDINGS/IMPRESSION: There is a single view of the pelvis, 2 views of the right hip, and 2 views of the right femur. Right total hip arthroplasty. Osteopenia. Joint space narrowing of the left hip. Oblique mildly displaced fracture of the proximal right femoral diaphysis just below the distal tip of the intramedullary component of the right hip prosthesis. Assessment & Plan - Diagnosis (1) Fall at home Qualifiers: Encounter type: initial encounter Qualified Code(s): W19.XXXA - Unspecified fall, initial encounter; Y92.009 - Unspecified place in unspecified non-institutional (private) residence as the place of occurrence of the external cause; Y92.009 - Unspecified place in unspecified non-institutional ( private) residence as the place of occurrence of the external cause Is this a current diagnosis for this admission?: Yes Plan: See admiring attending physician orders. (2) Periprosthetic fracture around internal prosthetic hip joint Qualifiers: Encounter type: initial encounter Laterality: right Qualified Code(s): M97.01XA - Periprosthetic fracture around internal prosthetic right hip joint, initial encounter; T84.040A - Periprosthetic fracture around internal prosthetic right hip joint, initial encounter Is this a current diagnosis for this admission?: Yes Plan: See admiring attending physician orders. (3) Anemia of chronic disease Is this a current diagnosis for this admission?: Yes Plan: See admiring attending physician orders. (4) Diabetes mellitus type 2 in nonobese Is this a current diagnosis for this admission?: Yes Plan: See admiring attending physician orders. (5) HTN (hypertension) Qualifiers: Hypertension type: essential hypertension Qualified Code(s): I10 - Essential (primary) hypertension Is this a current diagnosis for this admission?: Yes Plan: See admiring attending physician orders. (6) CAD (coronary artery disease), [place] coronary artery Qualifiers: [place] vs. transplanted heart: [place] heart Associated angina: without angina Qualified Code(s): I25.10 - Atherosclerotic heart disease of [place] coronary artery without angina pectoris Is this a current diagnosis for this admission?: Yes Plan: See admiring attending physician orders. (7) Old ME (myocardial infarction) Is this a current diagnosis for this admission?: Yes Plan: See admiring attending physician orders. (8) Dementia in Alzheimer's disease with depression Is this a current diagnosis for this admission?: Yes Plan: See admiring attending physician orders. (9) Seizure Is this a current diagnosis for this admission?: Yes Plan: See admiring attending physician orders. - Time Time Spent: 50 to 70 Minutes Medications reviewed and adjusted accordingly: Yes Anticipated discharge: SNF Within: Other - Inpatient Certification Based on my medical assessment, after consideration of the patient's comorbidities, presenting symptoms, or acuity I expect that the services needed warrant INPATIENT care.: Yes I certify that my determination is in accordance with my understanding of Medicare's requirements for reasonable and necessary INPATIENT services [42 CFR 412.3e].: Yes Medical Necessity: Need Close Monitoring Due to Risk of Patient Decompensation, Need For IV Fluids, Need For Continuous Telemetry Monitoring, Need for Pain Control, Need for Surgery, Risk of Complication if Not Cared For in Hospital Post Hospital Care: D/C or Transfer Summary - Plan Summary Plan Summary: See admiring attending physician orders.
[2017-12-11] MEDS ORDERED: (PENDING PHARMACY ID) (Difluprednate [Durezol] 1 DROP) OS SCH (22:00)
[2017-12-11] MEDS ORDERED: ATORVASTATIN CALCIUM 10 MG TABLET PO SCH (22:00)
[2017-12-11 22:04] LABS: ABSOLUTE BASOPHILS # (AUTO) 0.1 10^3/uL (0.0-0.2); ABSOLUTE EOSINOPHILS # (AUTO) 0.1 10^3/uL (0.0-0.6); ABSOLUTE MONOCYTES (AUTO) 0.3 10^3/uL (0.1-1.4); ABSOLUTE NEUT (AUTO) 5.8 10^3/uL (1.7-8.2); BASOPHILS % (AUTO) 0.7 % (0-2); EOSINOPHILS % (AUTO) 0.8 % (0-6); HEMATOCRIT 40.2 % (36.0-47.0); LYMPHOCYTES % (AUTO) 24.3 % (13-45); MEAN CORPUSCULAR HEMOGLOBIN 30.3 pg (27.0-33.4); MEAN CORPUSCULAR HGB CONC 34.1 g/dL (32.0-36.0); MEAN CORPUSCULAR VOLUME 89 fl (80-97); MONOCYTES % (AUTO) 3.3 % (3-13); PLATELET COUNT 107 10^3/uL (150-450); RED BLOOD COUNT 4.51 10^6/uL (3.72-5.28); RED CELL DISTRIBUTION WIDTH 13.8 % (11.5-14.0); SEGMENTED NEUTROPHILS % (AUTO) 70.9 % (42-78); TOTAL CELLS COUNTED % (AUTO) 100 %; WHITE BLOOD COUNT 8.2 10^3/uL (4.0-10.5)
[2017-12-11 22:22] LABS: HEMOGLOBIN 13.7 g/dL (12.0-15.5)
--- NOTE | 2017-12-11 22:54 | EKG REPORT ---
SEVERITY:- ABNORMAL ECG - SINUS RHYTHM FIRST DEGREE AV BLOCK PROBABLE INFERIOR INFARCT, OLD ANTERIOR INFARCT, AGE INDETERMINATE : Confirmed by: Gopi Camarillo 11-Dec-2017 22:53:41
[2017-12-12] MEDS ORDERED: INFLUENZA ADLT QUAD (36MOS+) 2017-18 VAC 0.5 ML SYR IM PRN (01:54)
[2017-12-12] MEDS: METOPROLOL SUCCINATE 25 MG TAB.SR.24H PO SCH ×3 (03:17→22:12)
[2017-12-12] MEDS: LEVETIRACETAM 500 MG TABLET PO SCH ×3 (03:18→22:12)
[2017-12-12] MEDS: ATORVASTATIN CALCIUM 20 MG TABLET PO SCH ×2 (03:18→22:12)
[2017-12-12] MEDS: BIMATOPROST 0.01% OPH SOLN 2.5 ML/BOTTLE OU SCH ×2 (03:19→22:08)
[2017-12-12] MEDS: BRIMONIDINE TARTRATE 0.2% OPH SOLN 5 ML OU SCH ×3 (03:19→22:08)
[2017-12-12] MEDS: TIMOLOL MALEATE 0.5% OPH SOLN 5 ML OU SCH ×3 (03:19→22:12)
[2017-12-12] MEDS ORDERED: (PENDING PHARMACY ID) (Nepafenac [Ilevro] 1 DROP) OS SCH (08:00)
[2017-12-12 08:23] LABS: ABSOLUTE EOSINOPHILS # (AUTO) 0.1 10^3/uL (0.0-0.6); ABSOLUTE MONOCYTES (AUTO) 0.7 10^3/uL (0.1-1.4); ABSOLUTE NEUT (AUTO) 9.6 10^3/uL (1.7-8.2); BASOPHILS % (AUTO) 0.3 % (0-2); EOSINOPHILS % (AUTO) 0.6 % (0-6); HEMATOCRIT 36.9 % (36.0-47.0); HEMOGLOBIN 12.4 g/dL (12.0-15.5); LYMPHOCYTES % (AUTO) 15.8 % (13-45); MEAN CORPUSCULAR HEMOGLOBIN 29.7 pg (27.0-33.4); MEAN CORPUSCULAR HGB CONC 33.5 g/dL (32.0-36.0); MEAN CORPUSCULAR VOLUME 88 fl (80-97); MONOCYTES % (AUTO) 5.9 % (3-13); PLATELET COUNT 103 10^3/uL (150-450); RED BLOOD COUNT 4.17 10^6/uL (3.72-5.28); RED CELL DISTRIBUTION WIDTH 13.5 % (11.5-14.0); SEGMENTED NEUTROPHILS % (AUTO) 77.4 % (42-78); TOTAL CELLS COUNTED % (AUTO) 100 %; WHITE BLOOD COUNT 12.4 10^3/uL (4.0-10.5)
[2017-12-12 08:47] LABS: ALANINE AMINOTRANSFERASE 19 U/L (9-52); ALBUMIN 3.2 g/dL (3.5-5.0); ALKALINE PHOSPHATASE 43 U/L (38-126); ANION GAP 8 (5-19); ASPARTATE AMINO TRANSFERASE 27 U/L (14-36); BILIRUBIN,DIRECT 0.1 mg/dL (0.0-0.4); BILIRUBIN,TOTAL 0.6 mg/dL (0.2-1.3); BLOOD UREA NITROGEN 19 mg/dL (7-20); CARBON DIOXIDE 25 mmol/L (22-30); CHLORIDE 102 mmol/L (98-107); GLUCOSE 103 mg/dL (75-110); POTASSIUM 4.5 mmol/L (3.6-5.0); SODIUM 135.2 mmol/L (137-145); TOTAL PROTEIN 5.8 g/dL (6.3-8.2)
[2017-12-12] MEDS ORDERED: DEXTROSE 40% GEL 15 GM TUBE PO PRN (09:00)
[2017-12-12] MEDS ORDERED: DEXTROSE 50%-WATER 25 GM/50 ML DISP.SYRIN IV PRN (09:00)
[2017-12-12] MEDS ORDERED: GLUCAGON,HUMAN RECOMB 1 MG INJ SUBCUT PRN (09:00)
[2017-12-12] MEDS: NORMAL SALINE 1000 ML 1,000 ML IV PRN (09:23)
--- NOTE | 2017-12-12 09:56 | XCELERA REPORT ---
[address] [address] Transthoracic Echocardiogram Report Name: JOHNATHAN FUNK Age: 76 yrs Gender: Female : 1940 Patient Status: Inpatient Patient Location: [place] [address]^A Study Date: 12/12/2017 07:48 AM Height: 66 in Weight: 103 lb BSA: 1.5 m2 Procedure: A complete two-dimensional transthoracic echocardiogram was performed (2D, M-mode, spectral and color flow Doppler). The study was technically difficult with many images being suboptimal in quality. Reason For Study: abn ekg Ordering Physician: GOPI COLLADO Performed By: Marilyn Hardwick Interpretation Summary LV EF is 45% Left ventricular systolic function is mildly reduced. There is borderline concentric left ventricular hypertrophy. The left ventricle is grossly normal size. Doppler measurements suggest pseudonormalized left ventricular relaxation, which is associated with grade II/IV or mild to moderate diastolic dysfunction There is apical wall akinesis The right ventricular systolic function is normal. The right atrium is normal. The left atrial size is normal. There is a trace amount of mitral regurgitation There is no mitral valve stenosis. There is no aortic valve stenosis There is a mild amount of aortic regurgitation There is a trace or physiologic amount of tricuspid regurgitation Tricuspid regurgitation jet envelope not well defined to measure RV systolic pressure accurately. The aortic root is not well visualized. The inferior vena cava appeared small and collapsed with respiration (RAP 0-5 mmHg) Minimal pericardial effusion. The study was technically difficult with many images being suboptimal in quality. MMode/2D Measurements & Calculations RVDd: 1.8 cm LVIDd: 4.2 cm FS: 26.8 % Ao root diam: 2.3 cm IVSd: 0.93 cm LVIDs: 3.1 cm EDV(Teich): 80.1 ml LVPWd: 0.88 cm ESV(Teich): 38.0 ml Ao root area: 4.0 cm2 EF(Teich): 52.6 % LA dimension: 2.9 cm Doppler Measurements & Calculations MV E max grabiel: MV P1/2t max grabiel: Ao V2 max: AI max grabiel: 93.8 cm/sec 93.8 cm/sec 101.6 cm/sec 388.2 cm/sec MV A max grabiel: MV P1/2t: 56.3 msec Ao max PG: AI max P.2 cm/sec 4.1 mmHg 60.3 mmHg MV E/A: 0.96 MVA(P1/2t): 3.9 cm2 AI dec slope: MV dec slope: 488.0 cm/sec2 174.0 cm/sec2 AI P1/2t: 653.4 msec LV V1 max PG: PA V2 max: TR max grabiel: 2.2 mmHg 128.3 cm/sec 238.9 cm/sec LV V1 max: PA max P.6 mmHg TR max P.0 cm/sec 22.8 mmHg Left Ventricle The left ventricle is grossly normal size. There is borderline concentric left ventricular hypertrophy. Left ventricular systolic function is mildly reduced. LV EF is 45%. Doppler measurements suggest pseudonormalized left ventricular relaxation, which is associated with grade II/IV or mild to moderate diastolic dysfunction. There is apical wall akinesis. Right Ventricle The right ventricle is grossly normal size. There is normal right ventricular wall thickness. The right ventricular systolic function is normal. Atria The right atrium is normal. The left atrial size is normal. Interarterial septum not well visualized and not well dopplered. Cannot comment on ASD/PFO presence. Mitral Valve There is mild mitral leaflet calcification. There is no mitral valve stenosis. There is a trace amount of mitral regurgitation. Aortic Valve The aortic valve is not well visualized secondary to technical limitations. There is no aortic valve stenosis. There is a mild amount of aortic regurgitation. Tricuspid Valve The tricuspid valve is not well visualized secondary to technical limitations. There is no tricuspid stenosis. There is a trace or physiologic amount of tricuspid regurgitation. Tricuspid regurgitation jet envelope not well defined to measure RV systolic pressure accurately. Pulmonic Valve The pulmonic valve is not well visualized. Great Vessels The aortic root is not well visualized. The inferior vena cava appeared small and collapsed with respiration (RAP 0-5 mmHg). Effusions Minimal pericardial effusion. : GOPI COLLADO > Gopi Collado
[2017-12-12] MEDS ORDERED: (PENDING PHARMACY ID) (Valsartan [Diovan] 320 MG) PO SCH (10:00)
--- NOTE | 2017-12-12 10:05 | EKG REPORT ---
SEVERITY:- ABNORMAL ECG - SINUS RHYTHM BORDERLINE LEFT AXIS DEVIATION ANTERIOR INFARCT, AGE INDETERMINATE : Confirmed by: Gopi Camarillo 12-Dec-2017 10:04:37
--- NOTE | 2017-12-12 10:15 | PDOC PROGRESS REPORT ---
Subjective Progress Note for:: 12/12/17 Subjective:: Patient seems to be same awaiting surgery. Pt is denying any chest arm or neck discomfort. Patient denying any PND, orthopnea. Patient denied any sustained palpitations, dizziness, syncope, near syncope. Patient denying any fever chills. Patient denying any other significant discomfort. Patient is maintaining sinus rhythm. Review of systems: Rest review of systems negative. Medications: Medications have been reviewed. Reason For Visit: FALL AT HOME,RIGHT FEMUR PERIPROSTHETIC FRACTURE Physical Exam Vital Signs: Temp Pulse Resp BP Pulse Ox 97.8 F 71 12 121/46 L 97 12/11/17 13:00 12/12/17 06:22 12/12/17 07:01 12/12/17 07:00 12/12/17 07:01 Intake & Output 12/11/17 12/12/17 12/13/17 06:59 06:59 06:59 Intake Total 650 Balance 650 Exam: GENERAL: well-nourished and in no acute distress. Alert and oriented x 2 HEAD: Atraumatic, normocephalic. EYES: Pupils equal round and reactive to light, extraocular movements intact, sclera anicteric, conjunctiva are normal. ENT: TMs normal, nares patent, oropharynx clear without exudates. Moist mucous membranes. No oral ulcerations or bleeding gums noted NECK: supple without lymphadenopathy. Trachea is central. No cervical or axillary lymphadenopathy noted. Carotids are 2+, JVD WNL LUNGS: Respiration seems nonlabored, no significant accessory muscle action noted. Breath sounds clear to auscultation bilaterally and equal noted. No wheezes rales or rhonchi noted. No significant dullness noted on percussion. CHEST: Palpation of the chest wall shows no significant chest wall tenderness. No other significant abnormalities noted. HEART: [place] CARDIOLOGY SPECIALIST, No PSH, 1/6 AZEB aortic area, 1/6 alex systolic murmur mitral area, no rubs, no gallops. ABDOMEN: Soft, no significant tenderness appreciated, normoactive bowel sounds. No guarding, no rebound. No rigidity noted . No masses appreciated. EXTREMITIES: Pedal pulses are 1-2+, no calf tenderness noted. No clubbing or cyanosis.trace to 1+ pedal edema noted NEUROLOGICAL: Focused neurological exam showed no significant neurologic deficit. Normal speech, no focal weakness appreciated. PSYCH: Normal mood, normal affect. Judgment and insight within normal limits. SKIN: No significant ecchymosis, rash, ulcerations or signs of pruritus noted. MUSCULOSKELETAL EXAM: No significant joint swelling noted. Findings indicative of left hip fracture noted Results Laboratory Results: 12/12/17 07:46 12/12/17 07:46 12/11/17 12/12/17 12/12/17 21:15 07:46 07:46 WBC 8.2 12.4 H RBC 4.51 4.17 Hgb 13.7 D 12.4 Hct 40.2 36.9 MCV 89 88 MCH 30.3 29.7 MCHC 34.1 33.5 RDW 13.8 13.5 Plt Count 107 L 103 L Seg Neutrophils % 70.9 77.4 Lymphocytes % 24.3 15.8 Monocytes % 3.3 5.9 Eosinophils % 0.8 0.6 Basophils % 0.7 0.3 Absolute Neutrophils 5.8 9.6 H Absolute Lymphocytes 2.0 2.0 Absolute Monocytes 0.3 0.7 Absolute Eosinophils 0.1 0.1 Absolute Basophils 0.1 0.0 Sodium 135.2 L Potassium 4.5 Chloride 102 Carbon Dioxide 25 Anion Gap 8 BUN 19 Creatinine 1.20 Est GFR ( Amer) 53 L Est GFR (Non-Af Amer) 43 L Glucose 103 Calcium 9.0 Total Bilirubin 0.6 AST 27 ALT 19 Alkaline Phosphatase 43 Total Protein 5.8 L Albumin 3.2 L 12/12/17 07:46 Troponin I 0.017 EKG Comments: Telemetry strip shows sinus rhythm no sustained tachycardia or bradycardia arrhythmias noted. 12-lead EKG shows sinus rhythm, findings indicative of prior anterior AK. Relatively unchanged from prior EKG. Impressions: Femur X-Ray 12/11/17 01:05 FINDINGS/IMPRESSION: There is a single view of the pelvis, 2 views of the right hip, and 2 views of the right femur. Right total hip arthroplasty. Osteopenia. Joint space narrowing of the left hip. Oblique mildly displaced fracture of the proximal right femoral diaphysis just below the distal tip of the intramedullary component of the right hip prosthesis. Hip/Pelvis X-Ray 12/11/17 01:05 FINDINGS/IMPRESSION: There is a single view of the pelvis, 2 views of the right hip, and 2 views of the right femur. Right total hip arthroplasty. Osteopenia. Joint space narrowing of the left hip. Oblique mildly displaced fracture of the proximal right femoral diaphysis just below the distal tip of the intramedullary component of the right hip prosthesis. Assessment & Plan - Diagnosis (1) Coronary artery disease Qualifiers: Coronary Disease-Associated Artery/Lesion type: [place] artery [place] vs. transplanted heart: [place] heart Is this a current diagnosis for this admission?: Yes (2) Abnormal EKG Is this a current diagnosis for this admission?: Yes (3) Anemia Qualifiers: Anemia type: unspecified type Qualified Code(s): D64.9 - Anemia, unspecified Is this a current diagnosis for this admission?: Yes (4) Femur fracture, right Qualifiers: Encounter type: initial encounter Femur location: unspecified portion of femur Fracture type: closed Fracture morphology: unspecified fracture morphology Qualified Code(s): S72.91XA - Unspecified fracture of right femur, initial encounter for closed fracture Is this a current diagnosis for this admission?: Yes (6) Preoperative cardiovascular examination Is this a current diagnosis for this admission?: Yes - Notes Notes: Patient had a troponin I ordered this morning because of some minor changes noted on EKG especially on the inferior leads. This was on yesterday's EKG. Troponin came back within normal limits for her age. 2D echo shows LVEF to be mildly depressed without any significant stenotic lesions. Mild aortic incompetence is noted. Apical akinesia is noted which is consistent with EKG and prior myocardial infarction history. At this point patient is cleared from cardiac standpoint with slightly above average risk but not deemed a prohibitive range. As regards patient's other condition, patient is generally stable. May consider slow hydration. We will continue to follow postop. Recommend DVT prophylaxis, adequate pain control, pulmonary toilet etc. - Time Time with patient: 15-25 minutes - CODE STATUS was discussed, patient remains full code. Surrogate decision-maker unchanged. Multiple medical problems were addressed. More than 50% of the time spent coordinating care, discussing management plans with involved caregivers. Management plans discussed with involved personnels. Medical decision making was of moderate to high complexity , patient's has multiple comorbidities. Medications reviewed and adjusted accordingly: Yes
[2017-12-12] MEDS ORDERED: EPHEDRINE SULFATE INJ 50 MG/1 ML AMPULE ONE (10:16)
[2017-12-12] MEDS ORDERED: ONDANSETRON HCL INJ/PF 4 MG/2 ML SDV ONE (10:16)
[2017-12-12] MEDS ORDERED: LIDOCAINE 2% INJ-PF (20 MG/ML) 10 ML AMPUL ONE (10:16)
[2017-12-12] MEDS ORDERED: FENTANYL CITRATE INJ/PF 100 MCG/2 ML AMPUL ONE (10:16)
[2017-12-12] MEDS ORDERED: MIDAZOLAM 2 MG/2 ML INJ ONE (10:16)
[2017-12-12] MEDS ORDERED: ACETAMINOPHEN 100 ML IV ONE (10:17)
[2017-12-12] MEDS ORDERED: PROPOFOL INJ 200 MG/20 ML VIAL IV ONE (10:17)
[2017-12-12] MEDS ORDERED: TRANEXAMIC ACID INJ/PF 1,000 MG/10 ML SDV IV ONE ×3 (10:26→18:00)
[2017-12-12] MEDS ORDERED: VANCOMYCIN HCL INJ 1000 MG VIAL ONE (10:26)
[2017-12-12] MEDS ORDERED: THROMBIN (BOVINE) 5000 UNIT EPITAXIS KIT ONE (10:57)
[2017-12-12] MEDS ORDERED: BUPIVACAINE INJ/PF LIPOSOME/PF 266 MG/20 ML SDV ONE (10:57)
[2017-12-12] MEDS ORDERED: BUPIVACAINE HCL 0.5%-EPI 1:200000 INJ/PF 30 ML VIAL ONE (11:00)
[2017-12-12] MEDS ORDERED: DIPHENHYDRAMINE HCL 50 MG/ML VIAL IV PRN (11:37)
[2017-12-12] MEDS ORDERED: ONDANSETRON HCL INJ/PF 4 MG/2 ML SDV IV PRN (11:37)
[2017-12-12] MEDS ORDERED: FENTANYL CITRATE INJ/PF 100 MCG/2 ML AMPUL IV PRN ×3 (11:37)
[2017-12-12] MEDS ORDERED: OXYCODONE-ACETAMINOPHEN 5-325 MG TABLET PO PRN ×2 (11:37)
[2017-12-12] MEDS ORDERED: MORPHINE SULFATE 10 MG/ML INJ IV PRN (11:37)
[2017-12-12] MEDS ORDERED: PROMETHAZINE HCL INJ 25 MG/1 ML VIAL IV PRN ×2 (11:37)
[2017-12-12] MEDS ORDERED: MEPERIDINE HCL/PF INJ 25 MG/1 ML DISP.SYRIN IV PRN (11:37)
--- NOTE | 2017-12-12 12:20 | Operative Report ---
Operative Report DATE OF SURGERY: 12/12/17 PREOPERATIVE DIAGNOSIS: Right periprosthetic femur fracture OPERATION: Open reduction internal fixation of right periprosthetic femur fracture SURGEON: LORENE MEDINA ANESTHESIA: Spinal ESTIMATED BLOOD LOSS: 100 PROCEDURE: With the patient supine on the [place] table the right lower extremity and hindquarter prepped and draped in a sterile fashion. A longitudinal incision is made over the lateral border of the right femur in the center portion. The iliotibial band is split. The vastus lateralis is elevated anteriorly and dissected from its posterior fascial attachment. The underlying fracture was easily identified. A 12 hole stainless steel [place] 4.5 plate is bent and placed along the lateral border of the femur. Its held in place with a [place] clamp. The fracture reduction and plate placement RSS fluoroscopically felt to be adequate. Subsequently bicortical screws were placed distally. Proximally there is unicortical lock screws with 2 circumferential cables. These are again checked fluoroscopically for both fracture reduction and hardware placement felt to be adequate. The wound is irrigated and closed using Vicryl followed by glenn. A sterile compressive dressings applied and patient's return to the PACU in satisfactory condition.
[2017-12-12] MEDS ORDERED: ONDANSETRON 4 MG TAB.RAPDIS SL PRN (12:41)
--- NOTE | 2017-12-12 14:01 | RADIOLOGY REPORT (SQ) ---
EXAM DESCRIPTION: FEMUR RIGHT COMPLETED DATE/TIME: 12/12/2017 1:52 pm REASON FOR STUDY: ORIF RT FEMUR ASST WITH FLUORO IN OR COMPARISON: 12/11/2017 FLUOROSCOPY TIME: 0.3 minutes 10 images saved to PACS. TECHNIQUE: Intra-operative images acquired during surgical procedure to evaluate progress. NUMBER OF IMAGES: 10 image LIMITATIONS: None. FINDINGS: Fluoroscopic images were obtained during internal fixation of the right femur. Orthopedic hardware is identified in position including an orthopedic plate transfixed by multiple orthopedic s crews. Please refer to the surgeon's operative report for additional information. IMPRESSION: IMAGE(S) OBTAINED DURING PROCEDURE. COMMENT: Quality ID [id number]: Final reports for procedures using fluoroscopy that document radiation exp osure indices, or exposure time and number of fluorographic images (if radiation exposure indices are not available) Please consult full operative report of the attending physician for description of the procedure. TECHNICAL DOCUMENTATION: JOB ID: [id number] [employer]- All Rights Reserved
--- NOTE | 2017-12-12 14:05 | RADIOLOGY REPORT (SQ) ---
EXAM DESCRIPTION: NO CHG FLUORO COMPLETE DATE/TIME: 12/12/2017 1:52 pm REASON FOR STUDY: ORIF RT FEMUR ASST WITH FLUORO IN OR FINDINGS: Please see combined report for performance of procedure and radiologic supervision and int erpretation. IMPRESSION: Please see combined report for performance of procedure and radiologic supervision and i nterpretation.
[2017-12-12] MEDS: LANSOPRAZOLE 30 MG TAB.RAP.DR PO SCH (15:23)
[2017-12-12] MEDS: MULTIVITAMIN TABLET PO SCH (15:23)
[2017-12-12] MEDS: VALSARTAN 160 MG TABLET PO SCH (15:23)
--- NOTE | 2017-12-12 16:43 | PDOC PROGRESS REPORT ---
Subjective Progress Note for:: 12/12/17 Subjective:: Post right ORIF under spinal anaesthesia. Denied chest pain or difficulty with breathing. No nausea or vomiting. Appetite and po intake remain a challenge. No reported fever or chills. Nursing staff reported episodes of confusion about seeing some people in her room that she does not like! Reason For Visit: FALL AT HOME,RIGHT FEMUR PERIPROSTHETIC FRACTURE Physical Exam Vital Signs: Temp Pulse Resp BP Pulse Ox 97.3 F 52 L 15 135/49 H 96 12/12/17 14:20 12/12/17 14:20 12/12/17 14:20 12/12/17 14:20 12/12/17 14:20 Intake & Output 12/11/17 12/12/17 12/13/17 06:59 06:59 06:59 Intake Total 650 950 Output Total 625 Balance 650 325 General appearance: PRESENT: no acute distress Head exam: PRESENT: atraumatic, normocephalic Eye exam: PRESENT: conjunctiva pink, EOMI, PERRLA. ABSENT: scleral icterus Mouth exam: PRESENT: moist Respiratory exam: PRESENT: clear to auscultation constantin, decreased breath sounds - at lung bases Cardiovascular exam: PRESENT: RRR, +S1, +S2, systolic murmur. ABSENT: diastolic murmur, rubs Murmur grade: 2 Vascular exam: PRESENT: normal capillary refill. ABSENT: pallor GI/Abdominal exam: PRESENT: normal bowel sounds, soft. ABSENT: distended, guarding, mass, organolmegaly, rebound, tenderness Extremities exam: ABSENT: pedal edema Musculoskeletal exam: PRESENT: deformity - related to arthritis Neurological exam: PRESENT: alert - and appropriate in simple responses at the time of my bedside evaluation., awake Psychiatric exam: PRESENT: appropriate affect, normal mood. ABSENT: homicidal ideation, suicidal ideation Skin exam: PRESENT: dry, intact, warm, other - Right thigh site of ORIF dressing satisfactory.. ABSENT: cyanosis, rash Results Laboratory Results: 12/12/17 07:46 12/12/17 07:46 12/11/17 12/12/17 12/12/17 21:15 07:46 07:46 WBC 8.2 12.4 H RBC 4.51 4.17 Hgb 13.7 D 12.4 Hct 40.2 36.9 MCV 89 88 MCH 30.3 29.7 MCHC 34.1 33.5 RDW 13.8 13.5 Plt Count 107 L 103 L Seg Neutrophils % 70.9 77.4 Lymphocytes % 24.3 15.8 Monocytes % 3.3 5.9 Eosinophils % 0.8 0.6 Basophils % 0.7 0.3 Absolute Neutrophils 5.8 9.6 H Absolute Lymphocytes 2.0 2.0 Absolute Monocytes 0.3 0.7 Absolute Eosinophils 0.1 0.1 Absolute Basophils 0.1 0.0 Sodium 135.2 L Potassium 4.5 Chloride 102 Carbon Dioxide 25 Anion Gap 8 BUN 19 Creatinine 1.20 Est GFR ( Amer) 53 L Est GFR (Non-Af Amer) 43 L Glucose 103 Calcium 9.0 Total Bilirubin 0.6 AST 27 ALT 19 Alkaline Phosphatase 43 Total Protein 5.8 L Albumin 3.2 L 12/12/17 07:46 Troponin I 0.017 Impressions: Hip/Pelvis X-Ray 12/11/17 01:05 FINDINGS/IMPRESSION: There is a single view of the pelvis, 2 views of the right hip, and 2 views of the right femur. Right total hip arthroplasty. Osteopenia. Joint space narrowing of the left hip. Oblique mildly displaced fracture of the proximal right femoral diaphysis just below the distal tip of the intramedullary component of the right hip prosthesis. Femur X-Ray 12/12/17 00:00 IMPRESSION: IMAGE(S) OBTAINED DURING PROCEDURE. Fluoroscopy 12/12/17 00:00 IMPRESSION: Please see combined report for performance of procedure and radiologic supervision and interpretation. Assessment & Plan - Diagnosis (1) Fall at home Qualifiers: Encounter type: initial encounter Qualified Code(s): W19.XXXA - Unspecified fall, initial encounter; Y92.009 - Unspecified place in unspecified non-institutional (private) residence as the place of occurrence of the external cause; Y92.009 - Unspecified place in unspecified non-institutional ( private) residence as the place of occurrence of the external cause Is this a current diagnosis for this admission?: Yes (2) Periprosthetic fracture around internal prosthetic hip joint Qualifiers: Encounter type: initial encounter Laterality: right Qualified Code(s): M97.01XA - Periprosthetic fracture around internal prosthetic right hip joint, initial encounter; T84.040A - Periprosthetic fracture around internal prosthetic right hip joint, initial encounter Is this a current diagnosis for this admission?: Yes (3) Anemia of chronic disease Is this a current diagnosis for this admission?: Yes (4) Diabetes mellitus type 2 in nonobese Is this a current diagnosis for this admission?: Yes (5) HTN (hypertension) Qualifiers: Hypertension type: essential hypertension Qualified Code(s): I10 - Essential (primary) hypertension Is this a current diagnosis for this admission?: Yes (6) CAD (coronary artery disease), [place] coronary artery Qualifiers: [place] vs. 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 Within: Other - Inpatient Certification Based on my medical assessment, after consideration of the patient's comorbidities, presenting symptoms, or acuity I expect that the services needed warrant INPATIENT care.: Yes I certify that my determination is in accordance with my understanding of Medicare's requirements for reasonable and necessary INPATIENT services [42 CFR 412.3e].: Yes Medical Necessity: Need For IV Fluids, Need For Continuous Telemetry Monitoring , Need for IV Antibiotics, Risk of Complication if Not Cared For in Hospital Post Hospital Care: D/C or Transfer Summary - Plan Summary Plan Summary: Continue current medical management. Obtain U/A with microscopy. CBC with diff, BMP in AM.
[2017-12-12] MEDS: HALOPERIDOL 0.5 MG TABLET PO SCH (18:19)
[2017-12-13] MEDS: HALOPERIDOL 0.5 MG TABLET PO SCH ×2 (05:51→17:26)
[2017-12-13] MEDS: LANSOPRAZOLE 30 MG TAB.RAP.DR PO SCH (05:51)
[2017-12-13] MEDS: RINGERS SOLUTION,LACTATED 1,000 ML IV PRN (05:51)
[2017-12-13] MEDS ORDERED: VANCOMYCIN HCL 1,000 MG in DEXTROSE 5%-WATER 250 ML IV ONE (07:00)
[2017-12-13 07:25] LABS: ANION GAP 6 (5-19); BLOOD UREA NITROGEN 14 mg/dL (7-20); CARBON DIOXIDE 25 mmol/L (22-30); CHLORIDE 104 mmol/L (98-107); GLUCOSE 111 mg/dL (75-110); POTASSIUM 4.2 mmol/L (3.6-5.0); SODIUM 135.1 mmol/L (137-145)
[2017-12-13 07:29] LABS: ABSOLUTE LYMPHOCYTES (AUTO) 1.7 10^3/uL (0.5-4.7); ABSOLUTE MONOCYTES (AUTO) 0.7 10^3/uL (0.1-1.4); ABSOLUTE NEUT (AUTO) 10.7 10^3/uL (1.7-8.2); BASOPHILS % (AUTO) 0.2 % (0-2); EOSINOPHILS % (AUTO) 0.2 % (0-6); HEMATOCRIT 34.6 % (36.0-47.0); HEMOGLOBIN 11.4 g/dL (12.0-15.5); LYMPHOCYTES % (AUTO) 13.1 % (13-45); MEAN CORPUSCULAR HEMOGLOBIN 29.3 pg (27.0-33.4); MEAN CORPUSCULAR VOLUME 89 fl (80-97); RED CELL DISTRIBUTION WIDTH 13.5 % (11.5-14.0); SEGMENTED NEUTROPHILS % (AUTO) 81.5 % (42-78); TOTAL CELLS COUNTED % (AUTO) 100 %; WHITE BLOOD COUNT 13.1 10^3/uL (4.0-10.5)
--- NOTE | 2017-12-13 07:49 | PDOC PROGRESS REPORT ---
Subjective Progress Note for:: 12/13/17 Reason For Visit: FALL AT HOME,RIGHT FEMUR PERIPROSTHETIC FRACTURE 76-year-old black female postop day 1 from an open reduction internal fixation of a right femoral periprosthetic fracture. Patient having some discomfort in the right lower extremity. Physical Exam Vital Signs: Temp Pulse Resp BP Pulse Ox 36.7 C 78 18 146/48 H 98 12/13/17 00:00 12/13/17 00:00 12/13/17 00:00 12/13/17 00:00 12/13/17 00:00 Intake & Output 12/12/17 12/13/17 12/14/17 06:59 06:59 06:59 Intake Total 650 1437 Output Total 625 Balance 650 812 General appearance: PRESENT: mild distress Head exam: PRESENT: normocephalic Respiratory exam: PRESENT: unlabored Murmur grade: 2 Vascular exam: PRESENT: normal capillary refill GI/Abdominal exam: PRESENT: soft Rectal exam: PRESENT: deferred Extremities exam: PRESENT: other - Left femur dressing has been reinforced. This is clean dry and intact. Distal neurovascular examination is intact. Neurological exam: PRESENT: alert, awake, oriented to person, oriented to place , oriented to time, oriented to situation. ABSENT: motor sensory deficit Psychiatric exam: PRESENT: appropriate affect, normal mood. ABSENT: homicidal ideation, suicidal ideation Skin exam: PRESENT: dry, intact, warm. ABSENT: cyanosis, rash Results Laboratory Results: 12/13/17 06:47 12/12/17 12/12/17 12/13/17 07:46 07:46 06:47 WBC 12.4 H RBC 4.17 Hgb 12.4 Hct 36.9 MCV 88 MCH 29.7 MCHC 33.5 RDW 13.5 Plt Count 103 L Seg Neutrophils % 77.4 Lymphocytes % 15.8 Monocytes % 5.9 Eosinophils % 0.6 Basophils % 0.3 Absolute Neutrophils 9.6 H Absolute Lymphocytes 2.0 Absolute Monocytes 0.7 Absolute Eosinophils 0.1 Absolute Basophils 0.0 Sodium 135.2 L 135.1 L Potassium 4.5 4.2 Chloride 102 104 Carbon Dioxide 25 25 Anion Gap 8 6 BUN 19 14 Creatinine 1.20 0.90 Est GFR ( Amer) 53 L > 60 Est GFR (Non-Af Amer) 43 L > 60 Glucose 103 111 H Calcium 9.0 9.0 Total Bilirubin 0.6 AST 27 ALT 19 Alkaline Phosphatase 43 Total Protein 5.8 L Albumin 3.2 L 12/12/17 07:46 Troponin I 0.017 Impressions: Hip/Pelvis X-Ray 12/11/17 01:05 FINDINGS/IMPRESSION: There is a single view of the pelvis, 2 views of the right hip, and 2 views of the right femur. Right total hip arthroplasty. Osteopenia. Joint space narrowing of the left hip. Oblique mildly displaced fracture of the proximal right femoral diaphysis just below the distal tip of the intramedullary component of the right hip prosthesis. Femur X-Ray 12/12/17 00:00 IMPRESSION: IMAGE(S) OBTAINED DURING PROCEDURE. Fluoroscopy 12/12/17 00:00 IMPRESSION: Please see combined report for performance of procedure and radiologic supervision and interpretation. Status: Imported from PACS Assessment & Plan - Diagnosis (1) Periprosthetic fracture around internal prosthetic hip joint Qualifiers: Encounter type: initial encounter Laterality: right Qualified Code(s): M97.01XA - Periprosthetic fracture around internal prosthetic right hip joint, initial encounter; T84.040A - Periprosthetic fracture around internal prosthetic right hip joint, initial encounter Is this a current diagnosis for this admission?: Yes Plan: 76-year-old black female status post open reduction internal fixation of right periprosthetic femur fracture. Plan will be for mobilization with physical therapy on a touchdown weightbearing restriction. Anticipate the need for [facility] facility placement. (2) Anemia of chronic disease Is this a current diagnosis for this admission?: Yes Plan: Postoperative hematocrit is 86.9% (3) Diabetes mellitus type 2 in nonobese Is this a current diagnosis for this admission?: Yes Plan: Blood glucose is controlled between 81 and 98. - Time Time Spent with patient: 15-24 minutes Anticipated discharge: SNF Within: within 48 hours
[2017-12-13 07:59] LABS: PLATELET COUNT 92 10^3/uL (150-450)
[2017-12-13] MEDS: OXYCODONE HCL IR 5 MG TABLET PO PRN ×2 (10:44→17:28)
[2017-12-13] MEDS: ASPIRIN 81 MG TABLET, CHEWABLE PO SCH (11:49)
[2017-12-13] MEDS: METOPROLOL SUCCINATE 25 MG TAB.SR.24H PO SCH ×2 (11:49→21:30)
[2017-12-13] MEDS: LEVETIRACETAM 500 MG TABLET PO SCH ×2 (11:49→21:30)
[2017-12-13] MEDS: MULTIVITAMIN TABLET PO SCH (11:51)
[2017-12-13] MEDS: VALSARTAN 160 MG TABLET PO SCH (11:52)
[2017-12-13] MEDS: BRIMONIDINE TARTRATE 0.2% OPH SOLN 5 ML OU SCH ×2 (11:52→21:29)
[2017-12-13] MEDS: TIMOLOL MALEATE 0.5% OPH SOLN 5 ML OU SCH ×2 (11:53→21:29)
[2017-12-13 15:23] LABS: AMORPHOUS SEDIMENT,URINE TRACE /HPF; APPEARANCE,URINE CLOUDY; BILIRUBIN,URINE NEGATIVE (NEGATIVE); COLOR,URINE YELLOW; GLUCOSE, URINE NEGATIVE (NEGATIVE); KETONES,URINE NEGATIVE (NEGATIVE); LEUKOCYTE ESTERASE,URINE SMALL (NEGATIVE); NITRITE,URINE POSITIVE (NEGATIVE); PROTEIN,URINE NEGATIVE (NEGATIVE); UROBILINOGEN,URINE NEGATIVE mg/dL (<2.0)
--- NOTE | 2017-12-13 17:38 | PDOC PROGRESS REPORT ---
Subjective Progress Note for:: 12/13/17 Subjective:: Patient underwent surgery yesterday. She remains lethargic but is denying any chest arm or neck discomfort. Patient denying any PND, orthopnea. Patient denied any sustained palpitations, dizziness, syncope, near syncope. Patient denying any fever chills. Patient denying any other significant discomfort. Patient is maintaining sinus rhythm. Review of systems: Rest review of systems negative. Medications: Medications have been reviewed. Reason For Visit: FALL AT HOME,RIGHT FEMUR PERIPROSTHETIC FRACTURE Physical Exam Vital Signs: Temp Pulse Resp BP Pulse Ox 97.8 F 94 14 136/49 H 97 12/13/17 11:18 12/13/17 11:18 12/13/17 11:18 12/13/17 11:18 12/13/17 11:18 Intake & Output 12/12/17 12/13/17 12/14/17 06:59 06:59 06:59 Intake Total 650 3024 Output Total 625 Balance 650 2399 Exam: GENERAL: well-nourished and in no acute distress. Patient is lethargic and does not seem oriented to place time or person. HEAD: Atraumatic, normocephalic. EYES: Pupils equal round and reactive to light, extraocular movements intact, sclera anicteric, conjunctiva are normal. ENT: TMs normal, nares patent, oropharynx clear without exudates. Moist mucous membranes. No oral ulcerations or bleeding gums noted NECK: supple without lymphadenopathy or JVD. Trachea is central. No cervical or axillary lymphadenopathy noted. Carotids are 2+ LUNGS: Breath sounds bibasilar fine crackles at bases. No significant dullness noted. CHEST: Palpation of chest wall shows no significant chest wall tenderness. HEART: [place] [employer], No PSH, 2/6 AZEB aortic area, 1/6 alex systolic murmur mitral area, rubs or gallops. ABDOMEN: Soft, no significant tenderness appreciated, normoactive bowel sounds. No guarding, no rebound. No rigidity noted . No masses appreciated. EXTREMITIES: Pedal pulses are 1-2+, no calf tenderness noted, Trace + pedal edema noted. No clubbing or cyanosis. NEUROLOGICAL: Patient is alert but is not able to participate in neurological exam because of patient's current mental status PSYCH: Patient cannot participate in a neurologic and psych exam because of the patient's current mental status SKIN: No significant ecchymosis, rash, ulcerations or signs of pruritus noted. MUSCULOSKELETAL EXAM: No significant joint swelling noted. Status post R hip surgery changes noted Results Laboratory Results: 12/13/17 06:47 12/13/17 06:47 12/13/17 12/13/17 06:47 06:47 WBC 13.1 H RBC 3.90 Hgb 11.4 L Hct 34.6 L MCV 89 MCH 29.3 MCHC 33.0 RDW 13.5 Plt Count 92 L Seg Neutrophils % 81.5 H Lymphocytes % 13.1 Monocytes % 5.0 Eosinophils % 0.2 Basophils % 0.2 Absolute Neutrophils 10.7 H Absolute Lymphocytes 1.7 Absolute Monocytes 0.7 Absolute Eosinophils 0.0 Absolute Basophils 0.0 Sodium 135.1 L Potassium 4.2 Chloride 104 Carbon Dioxide 25 Anion Gap 6 BUN 14 Creatinine 0.90 Est GFR ( Amer) > 60 Est GFR (Non-Af Amer) > 60 Glucose 111 H Calcium 9.0 12/12/17 07:46 Troponin I 0.017 Impressions: Hip/Pelvis X-Ray 12/11/17 01:05 FINDINGS/IMPRESSION: There is a single view of the pelvis, 2 views of the right hip, and 2 views of the right femur. Right total hip arthroplasty. Osteopenia. Joint space narrowing of the left hip. Oblique mildly displaced fracture of the proximal right femoral diaphysis just below the distal tip of the intramedullary component of the right hip prosthesis. Femur X-Ray 12/12/17 00:00 IMPRESSION: IMAGE(S) OBTAINED DURING PROCEDURE. Fluoroscopy 12/12/17 00:00 IMPRESSION: Please see combined report for performance of procedure and radiologic supervision and interpretation. Assessment & Plan - Diagnosis (1) Coronary artery disease Qualifiers: Coronary Disease-Associated Artery/Lesion type: [place] artery [place] vs. transplanted heart: [place] heart Is this a current diagnosis for this admission?: Yes (2) Abnormal EKG Is this a current diagnosis for this admission?: Yes (3) Anemia Qualifiers: Anemia type: unspecified type Qualified Code(s): D64.9 - Anemia, unspecified Is this a current diagnosis for this admission?: Yes (4) Femur fracture, right Qualifiers: Encounter type: initial encounter Femur location: unspecified portion of femur Fracture type: closed Fracture morphology: unspecified fracture morphology Qualified Code(s): S72.91XA - Unspecified fracture of right femur, initial encounter for closed fracture Is this a current diagnosis for this admission?: Yes (6) Preoperative cardiovascular examination Is this a current diagnosis for this admission?: Yes - Notes Notes: Patient is postop day 1. The postop EKG was supposed to be done but somehow order was not written. I therefore put in the order for EKG to be performed. Patient seems stable from cardiac standpoint but is generally lethargic. This could be patient's baseline. Coronary artery disease: Patient seems to be on adequate regimen. 2D echo results reviewed. Shows mildly depressed LVEF with apical akinesia. No significant stenotic or regurgitant valvular lesions were noted. Will follow tomorrow, check an EKG and if patient remains stable we will sign off after tomorrow's rounds. Currently no family members present at bedside. - Time Time with patient: 15-25 minutes - CODE STATUS was discussed, patient remains full code. Surrogate decision-maker unchanged. Multiple medical problems were addressed. More than 50% of the time spent coordinating care, discussing management plans with involved caregivers. Management plans discussed with involved personnels. Medical decision making was of moderate to high complexity , patient's has multiple comorbidities. Medications reviewed and adjusted accordingly: Yes
--- NOTE | 2017-12-13 19:17 | PDOC PROGRESS REPORT ---
Subjective Progress Note for:: 12/13/17 Subjective:: Patient seen by the bedside, she was admitted for fracture management, she has advanced dementia, UA suggests UTI Reason For Visit: FALL AT HOME,RIGHT FEMUR PERIPROSTHETIC FRACTURE Physical Exam Vital Signs: Temp Pulse Resp BP Pulse Ox 97.8 F 81 16 121/46 L 98 12/13/17 16:43 12/13/17 16:43 12/13/17 16:43 12/13/17 16:43 12/13/17 16:43 Intake & Output 12/12/17 12/13/17 12/14/17 06:59 06:59 06:59 Intake Total 650 3024 1900 Output Total 625 Balance 650 2399 1900 General appearance: PRESENT: no acute distress Eye exam: PRESENT: PERRLA Respiratory exam: PRESENT: clear to auscultation constantin Cardiovascular exam: PRESENT: +S1, +S2 Murmur grade: 2 GI/Abdominal exam: PRESENT: soft Neurological exam: PRESENT: alert Results Laboratory Results: 12/13/17 06:47 12/13/17 06:47 12/13/17 12/13/17 12/13/17 06:47 06:47 14:50 WBC 13.1 H RBC 3.90 Hgb 11.4 L Hct 34.6 L MCV 89 MCH 29.3 MCHC 33.0 RDW 13.5 Plt Count 92 L Seg Neutrophils % 81.5 H Lymphocytes % 13.1 Monocytes % 5.0 Eosinophils % 0.2 Basophils % 0.2 Absolute Neutrophils 10.7 H Absolute Lymphocytes 1.7 Absolute Monocytes 0.7 Absolute Eosinophils 0.0 Absolute Basophils 0.0 Sodium 135.1 L Potassium 4.2 Chloride 104 Carbon Dioxide 25 Anion Gap 6 BUN 14 Creatinine 0.90 Est GFR ( Amer) > 60 Est GFR (Non-Af Amer) > 60 Glucose 111 H Calcium 9.0 Urine Color YELLOW Urine Appearance CLOUDY Urine pH 5.0 Ur Specific [place] 1.010 Urine Protein NEGATIVE Urine Glucose (UA) NEGATIVE Urine Ketones NEGATIVE Urine Blood LARGE H Urine Nitrite POSITIVE H Ur Leukocyte Esterase SMALL H Urine WBC (Auto) 24 Urine RBC (Auto) 18 12/12/17 07:46 Troponin I 0.017 Impressions: Hip/Pelvis X-Ray 12/11/17 01:05 FINDINGS/IMPRESSION: There is a single view of the pelvis, 2 views of the right hip, and 2 views of the right femur. Right total hip arthroplasty. Osteopenia. Joint space narrowing of the left hip. Oblique mildly displaced fracture of the proximal right femoral diaphysis just below the distal tip of the intramedullary component of the right hip prosthesis. Femur X-Ray 12/12/17 00:00 IMPRESSION: IMAGE(S) OBTAINED DURING PROCEDURE. Fluoroscopy 12/12/17 00:00 IMPRESSION: Please see combined report for performance of procedure and radiologic supervision and interpretation. Assessment & Plan - Diagnosis (1) Urinary tract infection Qualifiers: Urinary tract infection type: site unspecified Hematuria presence: without hematuria Qualified Code(s): N39.0 - Urinary tract infection, site not specified Is this a current diagnosis for this admission?: Yes Plan: Start ciprofloxacin (2) Femur fracture, right Qualifiers: Encounter type: initial encounter Femur location: unspecified portion of femur Fracture type: closed Fracture morphology: unspecified fracture morphology Qualified Code(s): S72.91XA - Unspecified fracture of right femur, initial encounter for closed fracture Is this a current diagnosis for this admission?: Yes
[2017-12-13] MEDS: BIMATOPROST 0.01% OPH SOLN 2.5 ML/BOTTLE OU SCH (21:29)
[2017-12-13] MEDS: CIPROFLOXACIN 400 MG/D5W RTU 400 MG/200 ML RTUPB IV SCH (21:29)
[2017-12-13] MEDS: ATORVASTATIN CALCIUM 20 MG TABLET PO SCH (21:30)
[2017-12-14] MEDS: RINGERS SOLUTION,LACTATED 1,000 ML IV PRN (06:35)
[2017-12-14] MEDS: LANSOPRAZOLE 30 MG TAB.RAP.DR PO SCH (06:35)
[2017-12-14] MEDS: HALOPERIDOL 0.5 MG TABLET PO SCH ×2 (06:35→17:29)
--- NOTE | 2017-12-14 08:43 | PDOC PROGRESS REPORT ---
Subjective Progress Note for:: 12/14/17 Reason For Visit: FALL AT HOME,RIGHT FEMUR PERIPROSTHETIC FRACTURE 76-year-old white female with a right femoral periprosthetic fracture postop day 2. Patient continues to be confused. Physical Exam Vital Signs: Temp Pulse Resp BP Pulse Ox 37.3 C 79 16 140/47 H 96 12/14/17 07:24 12/14/17 07:24 12/14/17 07:24 12/14/17 07:24 12/14/17 07:24 Intake & Output 12/13/17 12/14/17 12/15/17 06:59 06:59 06:59 Intake Total 3024 3512 Output Total 625 Balance 2399 3512 Weight 49.3 kg General appearance: PRESENT: no acute distress Head exam: PRESENT: normocephalic Respiratory exam: PRESENT: unlabored Cardiovascular exam: PRESENT: RRR Murmur grade: 2 Pulses: PRESENT: +1 pedal pulses bilateral Vascular exam: PRESENT: normal capillary refill GI/Abdominal exam: PRESENT: soft Extremities exam: PRESENT: other - Right femoral wound dressing is changed today. Wound is well approximated glenn intact. Wound dry. No erythema. Skin exam: PRESENT: dry, intact, warm. ABSENT: cyanosis, rash Results Laboratory Results: 12/13/17 06:47 12/13/17 06:47 12/13/17 14:50 Urine Color YELLOW Urine Appearance CLOUDY Urine pH 5.0 Ur Specific [place] 1.010 Urine Protein NEGATIVE Urine Glucose (UA) NEGATIVE Urine Ketones NEGATIVE Urine Blood LARGE H Urine Nitrite POSITIVE H Ur Leukocyte Esterase SMALL H Urine WBC (Auto) 24 Urine RBC (Auto) 18 12/12/17 07:46 Troponin I 0.017 Impressions: Hip/Pelvis X-Ray 12/11/17 01:05 FINDINGS/IMPRESSION: There is a single view of the pelvis, 2 views of the right hip, and 2 views of the right femur. Right total hip arthroplasty. Osteopenia. Joint space narrowing of the left hip. Oblique mildly displaced fracture of the proximal right femoral diaphysis just below the distal tip of the intramedullary component of the right hip prosthesis. Femur X-Ray 12/12/17 00:00 IMPRESSION: IMAGE(S) OBTAINED DURING PROCEDURE. Fluoroscopy 12/12/17 00:00 IMPRESSION: Please see combined report for performance of procedure and radiologic supervision and interpretation. Status: Imported from PACS Assessment & Plan - Diagnosis (1) Periprosthetic fracture around internal prosthetic hip joint Qualifiers: Encounter type: initial encounter Laterality: right Qualified Code(s): M97.01XA - Periprosthetic fracture around internal prosthetic right hip joint, initial encounter; T84.040A - Periprosthetic fracture around internal prosthetic right hip joint, initial encounter Is this a current diagnosis for this admission?: Yes Plan: Postop day 2 status post open reduction internal fixation. Patient needs to be mobilized with physical therapy. (2) Anemia of chronic disease Is this a current diagnosis for this admission?: Yes (3) Diabetes mellitus type 2 in nonobese Is this a current diagnosis for this admission?: Yes Plan: Blood glucoses well controlled between 90 and 138 (4) UTI (urinary tract infection) Qualifiers: Urinary tract infection type: acute pyelonephritis Qualified Code(s): N10 - Acute pyelonephritis Is this a current diagnosis for this admission?: Yes Plan: Patient with anuric urinary tract infections been started on oral Cipro. Agosto to be discontinued. - Time Time Spent with patient: 15-24 minutes Anticipated discharge: SNF Within: when bed available
--- NOTE | 2017-12-14 09:17 | EKG REPORT ---
SEVERITY:- ABNORMAL ECG - SINUS RHYTHM PROBABLE INFERIOR INFARCT, OLD ANTERIOR INFARCT, AGE INDETERMINATE : Confirmed by: Gopi Camarillo 14-Dec-2017 09:16:12
[2017-12-14] MEDS: BRIMONIDINE TARTRATE 0.2% OPH SOLN 5 ML OU SCH ×2 (11:06→21:52)
[2017-12-14] MEDS: ASPIRIN 81 MG TABLET, CHEWABLE PO SCH (11:06)
[2017-12-14] MEDS: VALSARTAN 160 MG TABLET PO SCH (11:07)
[2017-12-14] MEDS: METOPROLOL SUCCINATE 25 MG TAB.SR.24H PO SCH ×2 (11:08→20:15)
[2017-12-14] MEDS: LEVETIRACETAM 500 MG TABLET PO SCH ×2 (11:08→20:15)
[2017-12-14] MEDS: MULTIVITAMIN TABLET PO SCH (11:08)
[2017-12-14] MEDS: OXYCODONE HCL IR 5 MG TABLET PO PRN ×2 (11:09→17:30)
[2017-12-14] MEDS: TIMOLOL MALEATE 0.5% OPH SOLN 5 ML OU SCH ×2 (11:09→21:52)
[2017-12-14] MEDS: CIPROFLOXACIN 400 MG/D5W RTU 400 MG/200 ML RTUPB IV SCH ×2 (11:51→21:52)
--- NOTE | 2017-12-14 13:57 | PDOC PROGRESS REPORT ---
Subjective Progress Note for:: 12/14/17 Subjective:: Patient underwent surgery before yesterday. She remains lethargic but is denying any chest arm or neck discomfort. Patient denying any PND, orthopnea. Patient denied any sustained palpitations, dizziness, syncope, near syncope. Patient denying any fever chills. Patient denying any other significant discomfort. Patient is maintaining sinus rhythm. No sustained tachycardia or bradycardia arrhythmias noted. Twelve-lead EKG shows sinus rhythm with evidence of prior anterior myocardial infarction but not significantly changed from before. Review of systems: Rest review of systems negative. Medications: Medications have been reviewed. Reason For Visit: FALL AT HOME,RIGHT FEMUR PERIPROSTHETIC FRACTURE Physical Exam Vital Signs: Temp Pulse Resp BP Pulse Ox 97.9 F 85 16 140/61 H 97 12/14/17 10:51 12/14/17 10:51 12/14/17 10:51 12/14/17 10:51 12/14/17 10:51 Intake & Output 12/13/17 12/14/17 12/15/17 06:59 06:59 06:59 Intake Total 3024 3512 Output Total 625 Balance 2399 3512 Weight 49.3 kg Exam: GENERAL: well-nourished and in no acute distress. Alert and oriented x2, HEAD: Atraumatic, normocephalic. EYES: Pupils equal round and reactive to light, extraocular movements intact, sclera anicteric, conjunctiva are normal. ENT: TMs normal, nares patent, oropharynx clear without exudates. Moist mucous membranes. No oral ulcerations or bleeding gums noted NECK: supple without lymphadenopathy. Trachea is central. No cervical or axillary lymphadenopathy noted. Carotids are 2+, JVD WNL LUNGS: Respiration seems nonlabored, no significant accessory muscle action noted. Breath sounds clear to auscultation bilaterally and equal noted. No wheezes rales or rhonchi noted. No significant dullness noted on percussion. CHEST: Palpation of the chest wall shows no significant chest wall tenderness. No other significant abnormalities noted. HEART: [place] [employer], No PSH, 1/6 AZEB aortic area, 1/6 alex systolic murmur mitral area, no rubs, no gallops. ABDOMEN: Soft, no significant tenderness appreciated, normoactive bowel sounds. No guarding, no rebound. No rigidity noted . No masses appreciated. EXTREMITIES: Pedal pulses are 1-2+, no calf tenderness noted. No clubbing or cyanosis.trace to 1+ pedal edema noted NEUROLOGICAL: Focused neurological exam showed no significant neurologic deficit. Low volume speech, no focal weakness appreciated, generalized weakness noted. PSYCH: Mood may be depressed. Judgment not checked. SKIN: No significant ecchymosis, rash, ulcerations or signs of pruritus noted. MUSCULOSKELETAL EXAM: No significant joint swelling noted. Postsurgical changes noted left hip. Results Laboratory Results: 12/13/17 06:47 12/13/17 06:47 12/13/17 14:50 Urine Color YELLOW Urine Appearance CLOUDY Urine pH 5.0 Ur Specific [place] 1.010 Urine Protein NEGATIVE Urine Glucose (UA) NEGATIVE Urine Ketones NEGATIVE Urine Blood LARGE H Urine Nitrite POSITIVE H Ur Leukocyte Esterase SMALL H Urine WBC (Auto) 24 Urine RBC (Auto) 18 12/12/17 07:46 Troponin I 0.017 EKG Comments: Twelve-lead EKG from yesterday reviewed and shows no significant changes. Impressions: Hip/Pelvis X-Ray 12/11/17 01:05 FINDINGS/IMPRESSION: There is a single view of the pelvis, 2 views of the right hip, and 2 views of the right femur. Right total hip arthroplasty. Osteopenia. Joint space narrowing of the left hip. Oblique mildly displaced fracture of the proximal right femoral diaphysis just below the distal tip of the intramedullary component of the right hip prosthesis. Femur X-Ray 12/12/17 00:00 IMPRESSION: IMAGE(S) OBTAINED DURING PROCEDURE. Fluoroscopy 12/12/17 00:00 IMPRESSION: Please see combined report for performance of procedure and radiologic supervision and interpretation. Assessment & Plan - Diagnosis (1) Coronary artery disease Qualifiers: Coronary Disease-Associated Artery/Lesion type: [place] artery [place] vs. transplanted heart: [place] heart Is this a current diagnosis for this admission?: Yes (2) Abnormal EKG Is this a current diagnosis for this admission?: Yes (3) Anemia Qualifiers: Anemia type: unspecified type Qualified Code(s): D64.9 - Anemia, unspecified Is this a current diagnosis for this admission?: Yes (4) Femur fracture, right Qualifiers: Encounter type: initial encounter Femur location: unspecified portion of femur Fracture type: closed Fracture morphology: unspecified fracture morphology Qualified Code(s): S72.91XA - Unspecified fracture of right femur, initial encounter for closed fracture Is this a current diagnosis for this admission?: Yes (6) Preoperative cardiovascular examination Is this a current diagnosis for this admission?: Yes - Notes Notes: Patient has done well from cardiac standpoint. She remains quite debilitated and weak. Cardiac tilley patient has been stable. Patient does have coronary artery disease. Resume patient's home cardiac medications. At this point will sign off. Please reconsult if needed. - Time Time with patient: 15-25 minutes - CODE STATUS was discussed, patient remains full code. Surrogate decision-maker unchanged. Multiple medical problems were addressed. More than 50% of the time spent coordinating care, discussing management plans with involved caregivers. Management plans discussed with involved personnels. Medical decision making was of mild to moderate complexity , patient's has multiple comorbidities. Medications reviewed and adjusted accordingly: Yes
--- NOTE | 2017-12-14 17:24 | PDOC PROGRESS REPORT ---
Subjective Progress Note for:: 12/14/17 Subjective:: Patient is seen by the bedside she has gram-negative rods UTI, she was started on Cipro yesterday Reason For Visit: FALL AT HOME,RIGHT FEMUR PERIPROSTHETIC FRACTURE Physical Exam Vital Signs: Temp Pulse Resp BP Pulse Ox 97.7 F 72 18 137/53 H 99 12/14/17 14:59 12/14/17 14:59 12/14/17 14:59 12/14/17 14:59 12/14/17 14:59 Intake & Output 12/13/17 12/14/17 12/15/17 06:59 06:59 06:59 Intake Total 3024 3512 Output Total 625 Balance 2399 3512 Weight 49.3 kg General appearance: PRESENT: no acute distress Eye exam: PRESENT: PERRLA Neck exam: PRESENT: full ROM Respiratory exam: PRESENT: clear to auscultation constantin Cardiovascular exam: PRESENT: RRR, +S1, +S2 Murmur grade: 2 Vascular exam: PRESENT: normal capillary refill GI/Abdominal exam: PRESENT: normal bowel sounds, soft Rectal exam: PRESENT: deferred Neurological exam: PRESENT: alert Skin exam: PRESENT: dry, intact, warm Results Laboratory Results: 12/13/17 06:47 12/13/17 06:47 12/12/17 07:46 Troponin I 0.017 Impressions: Hip/Pelvis X-Ray 12/11/17 01:05 FINDINGS/IMPRESSION: There is a single view of the pelvis, 2 views of the right hip, and 2 views of the right femur. Right total hip arthroplasty. Osteopenia. Joint space narrowing of the left hip. Oblique mildly displaced fracture of the proximal right femoral diaphysis just below the distal tip of the intramedullary component of the right hip prosthesis. Femur X-Ray 12/12/17 00:00 IMPRESSION: IMAGE(S) OBTAINED DURING PROCEDURE. Fluoroscopy 12/12/17 00:00 IMPRESSION: Please see combined report for performance of procedure and radiologic supervision and interpretation. Assessment & Plan - Diagnosis (1) Urinary tract infection Qualifiers: Urinary tract infection type: site unspecified Hematuria presence: without hematuria Qualified Code(s): N39.0 - Urinary tract infection, site not specified Is this a current diagnosis for this admission?: Yes (2) Femur fracture, right Qualifiers: Encounter type: initial encounter Femur location: unspecified portion of femur Fracture type: closed Fracture morphology: unspecified fracture morphology Qualified Code(s): S72.91XA - Unspecified fracture of right femur, initial encounter for closed fracture Is this a current diagnosis for this admission?: Yes - Plan Summary Plan Summary: Continue treatment
[2017-12-14] MEDS: ATORVASTATIN CALCIUM 20 MG TABLET PO SCH (20:15)
[2017-12-14] MEDS: BIMATOPROST 0.01% OPH SOLN 2.5 ML/BOTTLE OU SCH (21:52)
[2017-12-15] MEDS: HALOPERIDOL 0.5 MG TABLET PO SCH ×2 (08:06→17:42)
[2017-12-15] MEDS: LANSOPRAZOLE 30 MG TAB.RAP.DR PO SCH (08:06)
[2017-12-15] MEDS: OXYCODONE HCL IR 5 MG TABLET PO PRN ×2 (08:23→15:13)
[2017-12-15] MEDS: METOPROLOL SUCCINATE 25 MG TAB.SR.24H PO SCH ×2 (10:02→22:38)
[2017-12-15] MEDS: LEVETIRACETAM 500 MG TABLET PO SCH ×2 (10:02→22:38)
[2017-12-15] MEDS: VALSARTAN 160 MG TABLET PO SCH (10:02)
[2017-12-15] MEDS: MULTIVITAMIN TABLET PO SCH (10:02)
[2017-12-15] MEDS: BRIMONIDINE TARTRATE 0.2% OPH SOLN 5 ML OU SCH ×2 (10:03→22:38)
[2017-12-15] MEDS: TIMOLOL MALEATE 0.5% OPH SOLN 5 ML OU SCH ×2 (10:03→22:38)
[2017-12-15] MEDS: CIPROFLOXACIN 400 MG/D5W RTU 400 MG/200 ML RTUPB IV SCH ×2 (10:03→22:38)
[2017-12-15] MEDS: ASPIRIN 81 MG TABLET, CHEWABLE PO SCH (10:03)
[2017-12-15] MEDS: RINGERS SOLUTION,LACTATED 1,000 ML IV PRN (10:04)
[2017-12-15 10:17] LABS: ABSOLUTE BASOPHILS # (AUTO) 0.1 10^3/uL (0.0-0.2); ABSOLUTE EOSINOPHILS # (AUTO) 0.3 10^3/uL (0.0-0.6); ABSOLUTE LYMPHOCYTES (AUTO) 1.6 10^3/uL (0.5-4.7); ABSOLUTE MONOCYTES (AUTO) 0.7 10^3/uL (0.1-1.4); ABSOLUTE NEUT (AUTO) 9.2 10^3/uL (1.7-8.2); BASOPHILS % (AUTO) 0.7 % (0-2); EOSINOPHILS % (AUTO) 2.1 % (0-6); HEMOGLOBIN 10.2 g/dL (12.0-15.5); LYMPHOCYTES % (AUTO) 13.1 % (13-45); MEAN CORPUSCULAR HEMOGLOBIN 30.1 pg (27.0-33.4); MEAN CORPUSCULAR VOLUME 88 fl (80-97); MONOCYTES % (AUTO) 6.3 % (3-13); PLATELET COUNT 167 10^3/uL (150-450); RED BLOOD COUNT 3.39 10^6/uL (3.72-5.28); RED CELL DISTRIBUTION WIDTH 13.7 % (11.5-14.0); SEGMENTED NEUTROPHILS % (AUTO) 77.8 % (42-78); TOTAL CELLS COUNTED % (AUTO) 100 %; WHITE BLOOD COUNT 11.8 10^3/uL (4.0-10.5)
[2017-12-15 10:51] LABS: ANION GAP 6 (5-19); BLOOD UREA NITROGEN 9 mg/dL (7-20); CALCIUM 9.1 mg/dL (8.4-10.2); CARBON DIOXIDE 28 mmol/L (22-30); CHLORIDE 102 mmol/L (98-107); GLUCOSE 100 mg/dL (75-110); SODIUM 136.3 mmol/L (137-145)
--- NOTE | 2017-12-15 18:18 | PDOC PROGRESS REPORT ---
Subjective Progress Note for:: 12/15/17 Subjective:: Patient is more lucid and cooperative with care so far today. She denied any chest pain or difficulty with breathing. There is slight improvement in food intake. No nausea or vomiting. No reported fever or chills. Reason For Visit: FALL AT HOME,RIGHT FEMUR PERIPROSTHETIC FRACTURE Physical Exam Vital Signs: Temp Pulse Resp BP Pulse Ox 98.6 F 74 18 132/63 H 97 12/15/17 15:52 12/15/17 15:52 12/15/17 15:52 12/15/17 15:52 12/15/17 15:52 Intake & Output 12/14/17 12/15/17 12/16/17 06:59 06:59 06:59 Intake Total 3512 2783 118 Balance 3512 2783 118 Weight 49.3 kg Physical Exam: General appearance: PRESENT: no acute distress Head exam: PRESENT: atraumatic, normocephalic Eye exam: PRESENT: conjunctiva pink, EOMI, PERRLA. ABSENT: scleral icterus Mouth exam: PRESENT: moist Respiratory exam: PRESENT: clear to auscultation constantin, decreased breath sounds - at lung bases Cardiovascular exam: PRESENT: RRR, +S1, +S2, systolic murmur. ABSENT: diastolic murmur, rubs Murmur grade: 2 Vascular exam: PRESENT: normal capillary refill. ABSENT: pallor GI/Abdominal exam: PRESENT: normal bowel sounds, soft. ABSENT: distended, guarding, mass, organomegaly, rebound, tenderness Extremities exam: ABSENT: pedal edema Musculoskeletal exam: PRESENT: deformity - related to arthritis Neurological exam: PRESENT: alert - and appropriate in simple responses, awake Psychiatric exam: PRESENT: appropriate affect, normal mood. ABSENT: homicidal ideation, suicidal ideation Skin exam: PRESENT: dry, intact, warm, other - Right thigh site of ORIF dressing satisfactory.. ABSENT: cyanosis, rash Murmur grade: 2 Results Laboratory Results: 12/15/17 09:58 12/15/17 09:58 12/15/17 12/15/17 09:58 09:58 WBC 11.8 H RBC 3.39 L Hgb 10.2 L Hct 30.0 L MCV 88 MCH 30.1 MCHC 34.0 RDW 13.7 Plt Count 167 Seg Neutrophils % 77.8 Lymphocytes % 13.1 Monocytes % 6.3 Eosinophils % 2.1 Basophils % 0.7 Absolute Neutrophils 9.2 H Absolute Lymphocytes 1.6 Absolute Monocytes 0.7 Absolute Eosinophils 0.3 Absolute Basophils 0.1 Sodium 136.3 L Potassium 4.0 Chloride 102 Carbon Dioxide 28 Anion Gap 6 BUN 9 Creatinine 0.91 Est GFR ( Amer) > 60 Est GFR (Non-Af Amer) > 60 Glucose 100 Calcium 9.1 12/12/17 07:46 Troponin I 0.017 Impressions: Hip/Pelvis X-Ray 12/11/17 01:05 FINDINGS/IMPRESSION: There is a single view of the pelvis, 2 views of the right hip, and 2 views of the right femur. Right total hip arthroplasty. Osteopenia. Joint space narrowing of the left hip. Oblique mildly displaced fracture of the proximal right femoral diaphysis just below the distal tip of the intramedullary component of the right hip prosthesis. Femur X-Ray 12/12/17 00:00 IMPRESSION: IMAGE(S) OBTAINED DURING PROCEDURE. Fluoroscopy 12/12/17 00:00 IMPRESSION: Please see combined report for performance of procedure and radiologic supervision and interpretation. Assessment & Plan - Diagnosis (1) Fall at home Qualifiers: Encounter type: initial encounter Qualified Code(s): W19.XXXA - Unspecified fall, initial encounter; Y92.009 - Unspecified place in unspecified non-institutional (private) residence as the place of occurrence of the external cause; Y92.009 - Unspecified place in unspecified non-institutional ( private) residence as the place of occurrence of the external cause Is this a current diagnosis for this admission?: Yes (2) Periprosthetic fracture around internal prosthetic hip joint Qualifiers: Encounter type: initial encounter Laterality: right Qualified Code(s): M97.01XA - Periprosthetic fracture around internal prosthetic right hip joint, initial encounter; T84.040A - Periprosthetic fracture around internal prosthetic right hip joint, initial encounter Is this a current diagnosis for this admission?: Yes (3) Anemia of chronic disease Is this a current diagnosis for this admission?: Yes (4) Diabetes mellitus type 2 in nonobese Is this a current diagnosis for this admission?: Yes (5) HTN (hypertension) Qualifiers: Hypertension type: essential hypertension Qualified Code(s): I10 - Essential (primary) hypertension Is this a current diagnosis for this admission?: Yes (6) CAD (coronary artery disease), [place] coronary artery Qualifiers: [place] vs. 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 F/up on final culture report. - Time Time Spent with patient: 25-34 minutes Medications reviewed and adjusted accordingly: Yes Anticipated discharge: SNF - for short term rehabilitation. - Inpatient Certification Based on my medical assessment, after consideration of the patient's comorbidities, presenting symptoms, or acuity I expect that the services needed warrant INPATIENT care.: Yes I certify that my determination is in accordance with my understanding of Medicare's requirements for reasonable and necessary INPATIENT services [42 CFR 412.3e].: Yes Medical Necessity: Need Close Monitoring Due to Risk of Patient Decompensation, Need For IV Fluids, Need For Continuous Telemetry Monitoring, Need for IV Antibiotics, Risk of Complication if Not Cared For in Hospital Post Hospital Care: D/C or Transfer Summary - Plan Summary Plan Summary: Continue IV Ciprofloxacin coverage. Follow up urine culture findings regarding organism identification and sensitivity. Maintain on all other current management. Patient is agreeable to short term rehabilitation.
[2017-12-15] MEDS: ATORVASTATIN CALCIUM 20 MG TABLET PO SCH (22:38)
[2017-12-15] MEDS: BIMATOPROST 0.01% OPH SOLN 2.5 ML/BOTTLE OU SCH (22:38)
[2017-12-16] MEDS: HALOPERIDOL 0.5 MG TABLET PO SCH ×2 (05:21→16:36)
[2017-12-16] MEDS: LANSOPRAZOLE 30 MG TAB.RAP.DR PO SCH (05:21)
[2017-12-16] MEDS: OXYCODONE HCL IR 5 MG TABLET PO PRN ×2 (08:31→16:35)
[2017-12-16] MEDS: CIPROFLOXACIN 400 MG/D5W RTU 400 MG/200 ML RTUPB IV SCH ×2 (10:26→21:54)
[2017-12-16] MEDS: ASPIRIN 81 MG TABLET, CHEWABLE PO SCH (10:27)
[2017-12-16] MEDS: METOPROLOL SUCCINATE 25 MG TAB.SR.24H PO SCH ×2 (10:27→21:54)
[2017-12-16] MEDS: VALSARTAN 160 MG TABLET PO SCH (10:27)
[2017-12-16] MEDS: TIMOLOL MALEATE 0.5% OPH SOLN 5 ML OU SCH ×2 (10:28→21:53)
[2017-12-16] MEDS: MULTIVITAMIN TABLET PO SCH (10:28)
[2017-12-16] MEDS: LEVETIRACETAM 500 MG TABLET PO SCH ×2 (10:28→21:54)
[2017-12-16] MEDS: BRIMONIDINE TARTRATE 0.2% OPH SOLN 5 ML OU SCH ×2 (10:29→21:53)
--- NOTE | 2017-12-16 17:35 | PDOC PROGRESS REPORT ---
Subjective Progress Note for:: 12/16/17 Subjective:: No chest pain or difficulty with breathing. She participated in physical therapy session with some improvement. No nausea or vomiting. No reported fever or chills. Reason For Visit: FALL AT HOME,RIGHT FEMUR PERIPROSTHETIC FRACTURE Physical Exam Vital Signs: Temp Pulse Resp BP Pulse Ox 98.3 F 74 18 126/53 H 93 12/16/17 14:56 12/16/17 14:56 12/16/17 14:56 12/16/17 14:56 12/16/17 14:56 Intake & Output 12/15/17 12/16/17 12/17/17 06:59 06:59 06:59 Intake Total 2783 1575 337 Balance 2783 1575 337 Physical Exam: General appearance: PRESENT: no acute distress Head exam: PRESENT: atraumatic, normocephalic Eye exam: PRESENT: conjunctiva pink, EOMI, PERRLA. ABSENT: scleral icterus Mouth exam: PRESENT: moist Respiratory exam: PRESENT: clear to auscultation constantin, decreased breath sounds - at lung bases Cardiovascular exam: PRESENT: RRR, +S1, +S2, systolic murmur. ABSENT: diastolic murmur, rubs Murmur grade: 2 Vascular exam: PRESENT: normal capillary refill. ABSENT: pallor GI/Abdominal exam: PRESENT: normal bowel sounds, soft. ABSENT: distended, guarding, mass, organomegaly, rebound, tenderness Extremities exam: ABSENT: pedal edema Musculoskeletal exam: PRESENT: deformity - related to arthritis Neurological exam: PRESENT: alert - and appropriate in simple responses, awake Psychiatric exam: PRESENT: appropriate affect, normal mood. ABSENT: homicidal ideation, suicidal ideation Skin exam: PRESENT: dry, intact, warm, other - Right thigh site of ORIF dressing satisfactory.. ABSENT: cyanosis, rash Murmur grade: 2 Results Laboratory Results: 12/15/17 09:58 12/15/17 09:58 12/13/17 14:50 Catheterized Urine Urine Culture - Final Morganella Morganii 12/12/17 07:46 Troponin I 0.017 Impressions: Hip/Pelvis X-Ray 12/11/17 01:05 FINDINGS/IMPRESSION: There is a single view of the pelvis, 2 views of the right hip, and 2 views of the right femur. Right total hip arthroplasty. Osteopenia. Joint space narrowing of the left hip. Oblique mildly displaced fracture of the proximal right femoral diaphysis just below the distal tip of the intramedullary component of the right hip prosthesis. Femur X-Ray 12/12/17 00:00 IMPRESSION: IMAGE(S) OBTAINED DURING PROCEDURE. Fluoroscopy 12/12/17 00:00 IMPRESSION: Please see combined report for performance of procedure and radiologic supervision and interpretation. Assessment & Plan - Diagnosis (1) Fall at home Qualifiers: Encounter type: initial encounter Qualified Code(s): W19.XXXA - Unspecified fall, initial encounter; Y92.009 - Unspecified place in unspecified non-institutional (private) residence as the place of occurrence of the external cause; Y92.009 - Unspecified place in unspecified non-institutional ( private) residence as the place of occurrence of the external cause Is this a current diagnosis for this admission?: Yes (2) Periprosthetic fracture around internal prosthetic hip joint Qualifiers: Encounter type: initial encounter Laterality: right Qualified Code(s): M97.01XA - Periprosthetic fracture around internal prosthetic right hip joint, initial encounter; T84.040A - Periprosthetic fracture around internal prosthetic right hip joint, initial encounter Is this a current diagnosis for this admission?: Yes (3) Anemia of chronic disease Is this a current diagnosis for this admission?: Yes (4) Diabetes mellitus type 2 in nonobese Is this a current diagnosis for this admission?: Yes (5) HTN (hypertension) Qualifiers: Hypertension type: essential hypertension Qualified Code(s): I10 - Essential (primary) hypertension Is this a current diagnosis for this admission?: Yes (6) CAD (coronary artery disease), [place] coronary artery Qualifiers: [place] vs. transplanted heart: [place] heart Associated angina: without angina Qualified Code(s): I25.10 - Atherosclerotic heart disease of [place] coronary artery without angina pectoris Is this a current diagnosis for this admission?: Yes (7) Old [place] (myocardial infarction) Is this a current diagnosis for this admission?: Yes (8) Dementia in Alzheimer's disease with depression Is this a current diagnosis for this admission?: Yes (9) Seizure Is this a current diagnosis for this admission?: Yes (10) Gram-negative infection Is this a current diagnosis for this admission?: Yes - Time Time Spent with patient: 25-34 minutes Medications reviewed and adjusted accordingly: Yes Anticipated discharge: SNF - Inpatient Certification Based on my medical assessment, after consideration of the patient's comorbidities, presenting symptoms, or acuity I expect that the services needed warrant INPATIENT care.: Yes I certify that my determination is in accordance with my understanding of Medicare's requirements for reasonable and necessary INPATIENT services [42 CFR 412.3e].: Yes Medical Necessity: Need Close Monitoring Due to Risk of Patient Decompensation, Need For IV Fluids, Need For Continuous Telemetry Monitoring, Need for IV Antibiotics, Risk of Complication if Not Cared For in Hospital Post Hospital Care: D/C or Transfer Summary - Plan Summary Plan Summary: D/C IV Ciprofloxacin. Start on Levofloxacin 250 mg po daily from tomorrow. D/C associate merchandise planner input appreciated. Continue all other current management.
[2017-12-16] MEDS: BIMATOPROST 0.01% OPH SOLN 2.5 ML/BOTTLE OU SCH (21:53)
[2017-12-16] MEDS: ATORVASTATIN CALCIUM 20 MG TABLET PO SCH (21:54)
[2017-12-17] MEDS: OXYCODONE HCL IR 5 MG TABLET PO PRN (03:40)
[2017-12-17] MEDS: HALOPERIDOL 0.5 MG TABLET PO SCH ×2 (06:18→18:46)
[2017-12-17] MEDS: LANSOPRAZOLE 30 MG TAB.RAP.DR PO SCH (06:18)
[2017-12-17 06:37] LABS: BLOOD UREA NITROGEN 11 mg/dL (7-20); CALCIUM 9.1 mg/dL (8.4-10.2); GLUCOSE 99 mg/dL (75-110); POTASSIUM 4.6 mmol/L (3.6-5.0)
[2017-12-17 06:39] LABS: ABSOLUTE BASOPHILS # (AUTO) 0.1 10^3/uL (0.0-0.2); ABSOLUTE EOSINOPHILS # (AUTO) 0.4 10^3/uL (0.0-0.6); ABSOLUTE MONOCYTES (AUTO) 1.1 10^3/uL (0.1-1.4); ABSOLUTE NEUT (AUTO) 8.3 10^3/uL (1.7-8.2); EOSINOPHILS % (AUTO) 3.6 % (0-6); HEMOGLOBIN 10.9 g/dL (12.0-15.5); LYMPHOCYTES % (AUTO) 16.9 % (13-45); MEAN CORPUSCULAR HEMOGLOBIN 30.1 pg (27.0-33.4); MEAN CORPUSCULAR HGB CONC 34.1 g/dL (32.0-36.0); MEAN CORPUSCULAR VOLUME 88 fl (80-97); RED BLOOD COUNT 3.62 10^6/uL (3.72-5.28); RED CELL DISTRIBUTION WIDTH 13.1 % (11.5-14.0); SEGMENTED NEUTROPHILS % (AUTO) 69.5 % (42-78); TOTAL CELLS COUNTED % (AUTO) 100 %; WHITE BLOOD COUNT 11.9 10^3/uL (4.0-10.5)
[2017-12-17 06:58] LABS: ANION GAP 6 (5-19); CARBON DIOXIDE 29 mmol/L (22-30); CHLORIDE 100 mmol/L (98-107); SODIUM 134.7 mmol/L (137-145)
[2017-12-17 07:45] LABS: PLATELET COUNT 192 10^3/uL (150-450)
--- NOTE | 2017-12-17 07:48 | PDOC PROGRESS REPORT ---
Subjective Progress Note for:: 12/17/17 Subjective:: No chest pain or difficulty with breathing. No abdominal pain, nausea or vomiting. No reported fever or chills. Reason For Visit: FALL AT HOME,RIGHT FEMUR PERIPROSTHETIC FRACTURE Physical Exam Vital Signs: Temp Pulse Resp BP Pulse Ox 97.6 F 69 18 131/54 H 93 12/17/17 04:00 12/17/17 04:00 12/17/17 04:00 12/17/17 04:00 12/17/17 04:00 Intake & Output 12/16/17 12/17/17 12/18/17 06:59 06:59 06:59 Intake Total 1575 687 Balance 1575 687 Weight 50.1 kg Physical Exam: General appearance: PRESENT: no acute distress Head exam: PRESENT: atraumatic, normocephalic Eye exam: PRESENT: conjunctiva pink, EOMI, PERRLA. ABSENT: scleral icterus Mouth exam: PRESENT: moist Respiratory exam: PRESENT: clear to auscultation constantin, decreased breath sounds - at lung bases Cardiovascular exam: PRESENT: RRR, +S1, +S2, systolic murmur. ABSENT: diastolic murmur, rubs Murmur grade: 2 GI/Abdominal exam: PRESENT: normal bowel sounds, soft. ABSENT: distended, guarding, mass, organomegaly, rebound, tenderness Extremities exam: ABSENT: pedal edema Musculoskeletal exam: PRESENT: deformity - related to arthritis Neurological exam: PRESENT: alert - and appropriate in simple responses, awake Psychiatric exam: PRESENT: appropriate affect, normal mood. ABSENT: homicidal ideation, suicidal ideation Skin exam: PRESENT: dry, intact, warm, other - Right thigh site of ORIF dressing satisfactory.. ABSENT: cyanosis, rash Murmur grade: 2 Results Laboratory Results: 12/17/17 06:17 12/17/17 06:17 Sodium 134.7 L Potassium 4.6 Chloride 100 Carbon Dioxide 29 Anion Gap 6 BUN 11 Creatinine 0.91 Est GFR ( Amer) > 60 Est GFR (Non-Af Amer) > 60 Glucose 99 Calcium 9.1 12/13/17 14:50 Catheterized Urine Urine Culture - Final Morganella Morganii 12/12/17 07:46 Troponin I 0.017 Impressions: Hip/Pelvis X-Ray 12/11/17 01:05 FINDINGS/IMPRESSION: There is a single view of the pelvis, 2 views of the right hip, and 2 views of the right femur. Right total hip arthroplasty. Osteopenia. Joint space narrowing of the left hip. Oblique mildly displaced fracture of the proximal right femoral diaphysis just below the distal tip of the intramedullary component of the right hip prosthesis. Femur X-Ray 12/12/17 00:00 IMPRESSION: IMAGE(S) OBTAINED DURING PROCEDURE. Fluoroscopy 12/12/17 00:00 IMPRESSION: Please see combined report for performance of procedure and radiologic supervision and interpretation. Assessment & Plan - Diagnosis (1) Fall at home Qualifiers: Encounter type: initial encounter Qualified Code(s): W19.XXXA - Unspecified fall, initial encounter; Y92.009 - Unspecified place in unspecified non-institutional (private) residence as the place of occurrence of the external cause; Y92.009 - Unspecified place in unspecified non-institutional ( private) residence as the place of occurrence of the external cause Is this a current diagnosis for this admission?: Yes (2) Periprosthetic fracture around internal prosthetic hip joint Qualifiers: Encounter type: initial encounter Laterality: right Qualified Code(s): M97.01XA - Periprosthetic fracture around internal prosthetic right hip joint, initial encounter; T84.040A - Periprosthetic fracture around internal prosthetic right hip joint, initial encounter Is this a current diagnosis for this admission?: Yes (3) Anemia of chronic disease Is this a current diagnosis for this admission?: Yes (4) Diabetes mellitus type 2 in nonobese Is this a current diagnosis for this admission?: Yes (5) HTN (hypertension) Qualifiers: Hypertension type: essential hypertension Qualified Code(s): I10 - Essential (primary) hypertension Is this a current diagnosis for this admission?: Yes (6) CAD (coronary artery disease), [place] coronary artery Qualifiers: [place] vs. transplanted heart: [place] heart Associated angina: without angina Qualified Code(s): I25.10 - Atherosclerotic heart disease of [place] coronary artery without angina pectoris Is this a current diagnosis for this admission?: Yes (7) Old [place] (myocardial infarction) Is this a current diagnosis for this admission?: Yes (8) Dementia in Alzheimer's disease with depression Is this a current diagnosis for this admission?: Yes (9) Seizure Is this a current diagnosis for this admission?: Yes (10) Gram-negative infection Is this a current diagnosis for this admission?: Yes - Time Time Spent with patient: 25-34 minutes Medications reviewed and adjusted accordingly: Yes Anticipated discharge: SNF - Inpatient Certification Based on my medical assessment, after consideration of the patient's comorbidities, presenting symptoms, or acuity I expect that the services needed warrant INPATIENT care.: Yes I certify that my determination is in accordance with my understanding of Medicare's requirements for reasonable and necessary INPATIENT services [42 CFR 412.3e].: Yes Medical Necessity: Need Close Monitoring Due to Risk of Patient Decompensation, Need For IV Fluids, Need for IV Antibiotics, Risk of Complication if Not Cared For in Hospital Post Hospital Care: D/C or Transfer Summary - Plan Summary Plan Summary: D/C IV Cipro. Start on oral Levofloxacin 250 mg po daily. Continue all other current medical management. If she remain clinically stable possible transfer to SNF tomorrow.
[2017-12-17] MEDS ORDERED: NORMAL SALINE 1000 ML 1,000 ML IV PRN (08:17)
--- NOTE | 2017-12-17 09:08 | PDOC PROGRESS REPORT ---
Subjective Progress Note for:: 12/17/17 Reason For Visit: FALL AT HOME,RIGHT FEMUR PERIPROSTHETIC FRACTURE 76-year-old black female postop day 4 from an open reduction internal fixation of a right femoral periprosthetic fracture. Patient remains largely nonverbal. Physical Exam Vital Signs: Temp Pulse Resp BP Pulse Ox 36.4 C 76 18 131/54 H 93 12/17/17 04:00 12/17/17 07:00 12/17/17 04:00 12/17/17 04:00 12/17/17 04:00 Intake & Output 12/16/17 12/17/17 12/18/17 06:59 06:59 06:59 Intake Total 1575 687 Balance 1575 687 Weight 50.1 kg General appearance: PRESENT: no acute distress Head exam: PRESENT: normocephalic Respiratory exam: PRESENT: unlabored Cardiovascular exam: PRESENT: RRR Murmur grade: 2 Pulses: PRESENT: +1 pedal pulses bilateral Vascular exam: PRESENT: normal capillary refill GI/Abdominal exam: PRESENT: soft Rectal exam: PRESENT: deferred Extremities exam: PRESENT: other - Right lower extremity dressing with a scant amount of serous drainage. Leg lengths are equal. Distal neurovascular examination is intact. Neurological exam: PRESENT: alert, awake, oriented to person, oriented to place , oriented to time, oriented to situation. ABSENT: motor sensory deficit Psychiatric exam: PRESENT: appropriate affect, normal mood. ABSENT: homicidal ideation, suicidal ideation Skin exam: PRESENT: dry, intact, warm. ABSENT: cyanosis, rash Results Laboratory Results: 12/17/17 06:17 12/17/17 06:17 12/17/17 12/17/17 06:17 06:17 WBC 11.9 H RBC 3.62 L Hgb 10.9 L Hct 32.0 L MCV 88 MCH 30.1 MCHC 34.1 RDW 13.1 Plt Count 192 Seg Neutrophils % 69.5 Lymphocytes % 16.9 Monocytes % 9.0 Eosinophils % 3.6 Basophils % 1.0 Absolute Neutrophils 8.3 H Absolute Lymphocytes 2.0 Absolute Monocytes 1.1 Absolute Eosinophils 0.4 Absolute Basophils 0.1 Sodium 134.7 L Potassium 4.6 Chloride 100 Carbon Dioxide 29 Anion Gap 6 BUN 11 Creatinine 0.91 Est GFR ( Amer) > 60 Est GFR (Non-Af Amer) > 60 Glucose 99 Calcium 9.1 12/13/17 14:50 Catheterized Urine Urine Culture - Final Morganella Morganii 12/12/17 07:46 Troponin I 0.017 Impressions: Hip/Pelvis X-Ray 12/11/17 01:05 FINDINGS/IMPRESSION: There is a single view of the pelvis, 2 views of the right hip, and 2 views of the right femur. Right total hip arthroplasty. Osteopenia. Joint space narrowing of the left hip. Oblique mildly displaced fracture of the proximal right femoral diaphysis just below the distal tip of the intramedullary component of the right hip prosthesis. Femur X-Ray 12/12/17 00:00 IMPRESSION: IMAGE(S) OBTAINED DURING PROCEDURE. Fluoroscopy 12/12/17 00:00 IMPRESSION: Please see combined report for performance of procedure and radiologic supervision and interpretation. Assessment & Plan - Diagnosis (1) Periprosthetic fracture around internal prosthetic hip joint Qualifiers: Encounter type: initial encounter Laterality: right Qualified Code(s): M97.01XA - Periprosthetic fracture around internal prosthetic right hip joint, initial encounter; T84.040A - Periprosthetic fracture around internal prosthetic right hip joint, initial encounter Is this a current diagnosis for this admission?: Yes Plan: Status post open reduction internal fixation right femur fracture with limited physical therapy progress in the interim. Patient was able stand at the bedside but did not make any significant ambulation goals. Hematocrit remains at 30%. (2) Anemia of chronic disease Is this a current diagnosis for this admission?: Yes (3) Diabetes mellitus type 2 in nonobese Is this a current diagnosis for this admission?: Yes (4) UTI (urinary tract infection) Qualifiers: Urinary tract infection type: acute pyelonephritis Qualified Code(s): N10 - Acute pyelonephritis Is this a current diagnosis for this admission?: Yes - Time Time Spent with patient: 15-24 minutes Anticipated discharge: SNF Within: within 24 hours - In light of the patient's limited progress with physical therapy my recommendation is that we consider shelter facility placement
[2017-12-17] MEDS: METOPROLOL SUCCINATE 25 MG TAB.SR.24H PO SCH ×2 (11:03→22:24)
[2017-12-17] MEDS: LEVETIRACETAM 500 MG TABLET PO SCH ×2 (11:07→22:24)
[2017-12-17] MEDS: MULTIVITAMIN TABLET PO SCH (11:08)
[2017-12-17] MEDS: VALSARTAN 160 MG TABLET PO SCH (11:08)
[2017-12-17] MEDS: ASPIRIN 81 MG TABLET, CHEWABLE PO SCH (11:08)
[2017-12-17] MEDS: BRIMONIDINE TARTRATE 0.2% OPH SOLN 5 ML OU SCH ×2 (11:09→22:24)
[2017-12-17] MEDS: TIMOLOL MALEATE 0.5% OPH SOLN 5 ML OU SCH ×2 (11:09→22:24)
[2017-12-17] MEDS: LEVOFLOXACIN 250 MG TABLET PO SCH (11:45)
[2017-12-17] MEDS: BIMATOPROST 0.01% OPH SOLN 2.5 ML/BOTTLE OU SCH (22:24)
[2017-12-17] MEDS: ATORVASTATIN CALCIUM 20 MG TABLET PO SCH (22:24)
[2017-12-18] MEDS: LANSOPRAZOLE 30 MG TAB.RAP.DR PO SCH (05:52)
[2017-12-18] MEDS: HALOPERIDOL 0.5 MG TABLET PO SCH (05:53)
[2017-12-18 09:54] LABS: HEMATOCRIT 26.8 % (36.0-47.0); HEMOGLOBIN 9.1 g/dL (12.0-15.5); MEAN CORPUSCULAR HGB CONC 33.9 g/dL (32.0-36.0); MEAN CORPUSCULAR VOLUME 89 fl (80-97); PLATELET COUNT 224 10^3/uL (150-450); RED BLOOD COUNT 3.02 10^6/uL (3.72-5.28); RED CELL DISTRIBUTION WIDTH 13.3 % (11.5-14.0); WHITE BLOOD COUNT 9.7 10^3/uL (4.0-10.5)
[2017-12-18] MEDS: ASPIRIN 81 MG TABLET, CHEWABLE PO SCH (10:19)
[2017-12-18] MEDS: MULTIVITAMIN TABLET PO SCH (10:20)
[2017-12-18] MEDS: METOPROLOL SUCCINATE 25 MG TAB.SR.24H PO SCH (10:20)
[2017-12-18] MEDS: LEVETIRACETAM 500 MG TABLET PO SCH (10:20)
[2017-12-18] MEDS: OXYCODONE HCL IR 5 MG TABLET PO PRN (10:20)
[2017-12-18] MEDS: VALSARTAN 160 MG TABLET PO SCH (10:21)
[2017-12-18] MEDS: TIMOLOL MALEATE 0.5% OPH SOLN 5 ML OU SCH (10:21)
[2017-12-18] MEDS: BRIMONIDINE TARTRATE 0.2% OPH SOLN 5 ML OU SCH (10:22)
[2017-12-18] MEDS: LEVOFLOXACIN 250 MG TABLET PO SCH (10:24)
[2017-12-18 10:25] LABS: ABSOLUTE LYMPHOCYTES# (MANUAL) 2.2 10^3/uL (0.5-4.7); ABSOLUTE MONOCYTES # (MANUAL) 1.1 10^3/uL (0.1-1.4); BASOPHILS % (MANUAL) 0 % (0-2); EOSINOPHILS % (MANUAL) 4 % (0-6); LYMPHOCYTES % (MANUAL) 23 % (13-45); MONOCYTES % (MANUAL) 11 % (3-13); PLATELET CLUMPS PRESENT; POLYCHROMASIA SLIGHT; SEGMENTED NEUTROPHILS % (MAN) 62 % (42-78); TOTAL CELLS COUNTED 100; TOXIC GRANULATION 1+; TOXIC VACUOLATION PRESENT
[2017-12-18 13:01] VITALS: BP 135/53
--- NOTE | 2017-12-18 13:03 | PDOC TRANSFER SUMMARY ---
General - Admit/Disc Date/PCP Admission Date/Primary Care Provider: 12/11/17 06:02 TRIXIE FELDMAN Discharge Date: 12/18/17 - Discharge Diagnosis (1) Fall at home Is this a current diagnosis for this admission?: Yes (2) Periprosthetic fracture around internal prosthetic hip joint Is this a current diagnosis for this admission?: Yes (3) Anemia of chronic disease Is this a current diagnosis for this admission?: Yes (4) Diabetes mellitus type 2 in nonobese Is this a current diagnosis for this admission?: Yes (5) HTN (hypertension) Is this a current diagnosis for this admission?: Yes (6) CAD (coronary artery disease), [place] coronary artery Is this a current diagnosis for this admission?: Yes (7) Old NM (myocardial infarction) Is this a current diagnosis for this admission?: Yes (8) Dementia in Alzheimer's disease with depression Is this a current diagnosis for this admission?: Yes (9) Seizure Is this a current diagnosis for this admission?: Yes (10) Gram-negative infection Is this a current diagnosis for this admission?: Yes Summary: Due to Morganella Morganii. Improving. - Additional Information Resuscitation Status: Full Code Home Medications: Aspirin [Aspirin 81 mg Chewable Tablet] 81 mg PO DAILY 12/11/17 Bimatoprost [Lumigan 0.01% Oph Soln 2.5 ml/Bottle] 1 drop OU QHS 12/11/17 Brimonidine Tartrate/Timolol [Combigan 0.2%-0.5% Eye Drops] 1 drop OU BID Budesonide/Formoterol Fumarate [Symbicort HFA 160-4.5 mcg Inhaler 6 gm] 2 puff IH PRN PRN 12/11/17 Difluprednate [Durezol] 1 drop OS QID 12/11/17 Haloperidol [Haldol 0.5 mg Tablet] 0.25 mg PO Q12 12/11/17 Hydroxyzine HCl [Atarax 10 mg Tablet] 5 mg PO TIDP PRN 12/11/17 Levetiracetam [Keppra 500 mg Tablet] 500 mg PO Q12 12/11/17 Metoprolol Tartrate [Lopressor 25 mg Tablet] 25 mg PO Q12 12/11/17 Multivitamin [Multiple Vitamins] 1 each PO DAILY 12/11/17 Nepafenac [Ilevro] 1 drop OS QAM 12/11/17 Rivastigmine [Exelon 4.6 mg/24 Hr Transdermal Patch] 1 each TD DAILY 12/11/17 Simvastatin 10 mg PO QHS 12/11/17 Sitagliptin Phosphate [Januvia 50 mg Tablet] 50 mg PO DAILY 12/11/17 Valsartan [Diovan] 320 mg PO DAILY 12/11/17 Levofloxacin [Levaquin 250 mg Tablet] 250 mg PO DAILY 2 Days tablet 12/18/17 History of Present Illness Admission Date/PCP: 12/11/17 06:02 TRIXIE FRANCIA History of Present Illness: Patient is a 76-year-old female known to my practice was brought to the ED due to incident fall at home while she was trying to get back to her bed after using her bathroom at home. She subsequently developed right thigh pain. She had right hip arthroplasty several years ago. She denied any preceding chest pain, palpitation, dizziness, vertigo, nausea or vomiting. She reported hitting her head on the floor but denied any loss of consciousness or focal weakness. Her initial evaluation in the ED was remarkable for right femur fracture and significant anemia. Her morbidities include Congestive Heart Failure, Coronary Artery Disease s/p stent angioplasty, Old NM, Hypertension, Hypercholesterolemia , Diabetes Mellitus type 2, Seizure disorder, Asthma, Osteoarthritis, Dementia with depression, and adult type failure to thrive Hospital Course Hospital Course: Patient was seen by Dr. Ananda Rice, orthopedic surgeon and Dr Camarillo, museum curator in consultation. She was cardiac cleared and taken to operating room on 12/12/2017 for open reduction and internal fixation of right periprosthetic femoral fracture. Post operative period has been remarkable for her participation in rehabilitation session and development of UTI due to Morganella Morganii. She was adequated treated with IV Ciprofloxacin and eventually transition to oral Levofloxacin. She will need at least 2 more days of oral antibiotic. She is agreeable to transfer to SNF for shirt term rehabilitation. She will benefit from physical therapy sessions twice daily whole at SNF. She will be transferred to [facility] today. She will follow up with Dr Rice and myself as instructed upon transfer to SNF. Please call my office for appointment before discharge from SNF. Physical Exam Vital Signs: Temp Pulse Resp BP Pulse Ox 97.8 F 72 20 140/50 H 100 12/18/17 08:07 12/18/17 08:07 12/18/17 08:07 12/18/17 08:07 12/18/17 08:07 Intake & Output 12/17/17 12/18/17 12/19/17 06:59 06:59 06:59 Intake Total 687 1724 Balance 687 1724 Weight 50 kg General appearance: PRESENT: no acute distress Head exam: PRESENT: atraumatic, normocephalic Eye exam: PRESENT: conjunctiva pink, EOMI, PERRLA. ABSENT: scleral icterus Mouth exam: PRESENT: moist Respiratory exam: PRESENT: clear to auscultation constantin, decreased breath sounds - at lung bases Cardiovascular exam: PRESENT: RRR, +S1, +S2, systolic murmur. ABSENT: diastolic murmur, rubs Murmur grade: 2 GI/Abdominal exam: PRESENT: normal bowel sounds, soft. ABSENT: distended, guarding, mass, organomegaly, rebound, tenderness Extremities exam: ABSENT: pedal edema Musculoskeletal exam: PRESENT: deformity - related to arthritis Neurological exam: PRESENT: alert - and appropriate in simple responses, awake Psychiatric exam: PRESENT: appropriate affect, normal mood. ABSENT: homicidal ideation, suicidal ideation Skin exam: PRESENT: dry, intact, warm, other - Right thigh site of ORIF dressing satisfactory.. ABSENT: cyanosis, rash Results Laboratory Results: 12/18/17 08:59 12/17/17 06:17 12/18/17 08:59 WBC 9.7 RBC 3.02 L Hgb 9.1 L Hct 26.8 L MCV 89 MCH 30.0 MCHC 33.9 RDW 13.3 Plt Count 224 Seg Neutrophils % Not Reportable Lymphocytes % Not Reportable Monocytes % Not Reportable Eosinophils % Not Reportable Basophils % Not Reportable Absolute Neutrophils Not Reportable Absolute Lymphocytes Not Reportable Absolute Monocytes Not Reportable Absolute Eosinophils Not Reportable Absolute Basophils Not Reportable 12/12/17 07:46 Troponin I 0.017 Impressions: Hip/Pelvis X-Ray 12/11/17 01:05 FINDINGS/IMPRESSION: There is a single view of the pelvis, 2 views of the right hip, and 2 views of the right femur. Right total hip arthroplasty. Osteopenia. Joint space narrowing of the left hip. Oblique mildly displaced fracture of the proximal right femoral diaphysis just below the distal tip of the intramedullary component of the right hip prosthesis. Femur X-Ray 12/12/17 00:00 IMPRESSION: IMAGE(S) OBTAINED DURING PROCEDURE. Fluoroscopy 12/12/17 00:00 IMPRESSION: Please see combined report for performance of procedure and radiologic supervision and interpretation. Transfer Plan - Disposition Transfer Plan: Transfer to [facility] for [facility] term rehabilitation. Qualifiers PATEINT BEING DISCHARGED WITH ANY OF THE FOLLOWING DIAGNOSIS?: No Plan Discharge Plan: Transfer to [facility] for short term rehabilitation. Time Spent: Greater than 30 Minutes - More than 50% spent in care coordination and counseling on post discharge rehabilitation expectations.
== END 2017-12-18 16:20 | DRG 482 ==
LOC: ER 00:51 → EH 06:02 → 4W 12-12 13:29
PROVIDERS: ADMIT Internal Medicine Geriatric Medicine; ATTEND Internal Medicine Geriatric Medicine
PROC: 30233N1 Transfusion of Nonautologous Red Blood Cells into Peripheral Vein, Percutaneous Approach (ICD-10-PCS; 2017-12-11)
PROC: 0QS604Z Reposition Right Upper Femur with Internal Fixation Device, Open Approach (ICD-10-PCS; principal; 2017-12-12 11:00)
PROC: 3E0234Z Introduction of Serum, Toxoid and Vaccine into Muscle, Percutaneous Approach (ICD-10-PCS; 2017-12-18)
DX: M97.01XA Periprosthetic fracture around internal prosthetic right hip joint, initial encounter (principal); D63.8 Anemia in other chronic diseases classified elsewhere; W18.30XA Fall on same level, unspecified, initial encounter; E11.9 Type 2 diabetes mellitus without complications; I25.10 Atherosclerotic heart disease of native coronary artery without angina pectoris; G30.9 Alzheimer's disease, unspecified; F02.80 Dementia in other diseases classified elsewhere, unspecified severity, without behavioral disturbance, psychotic disturbance, mood disturbance, and anxiety; F32.9 Major depressive disorder, single episode, unspecified; B96.4 Proteus (mirabilis) (morganii) as the cause of diseases classified elsewhere; G40.909 Epilepsy, unspecified, not intractable, without status epilepticus; R62.7 Adult failure to thrive; M19.90 Unspecified osteoarthritis, unspecified site; I11.0 Hypertensive heart disease with heart failure; M85.80 Other specified disorders of bone density and structure, unspecified site; Z88.8 Allergy status to other drugs, medicaments and biological substances; I25.2 Old myocardial infarction; Z79.82 Long term (current) use of aspirin; Z79.899 Other long term (current) drug therapy; Y92.013 Bedroom of single-family (private) house as the place of occurrence of the external cause; Z95.5 Presence of coronary angioplasty implant and graft; Z88.0 Allergy status to penicillin; Z82.49 Family history of ischemic heart disease and other diseases of the circulatory system; Z23 Encounter for immunization
CPT/HCPCS: 01230; 36415; 36430; 71045; 80048; 80053; 81001; 82962; 84484; 85025; 85610; 85730; 86850; 86900; 86901; 86920; 87086; 87088; 87186; 90686; 93005; 93010; 93306; 96374; 99285; C9290; G8978-GP; G8979-GP; J0131; J0744; J1170; J2250; J2270; J2405; J2704; J3010; J3370; J3490; J7030; J7050; J7060; J7120; L1830; P9016; S0119

== ENCOUNTER 2019-01-30 11:47 | Observation (INO) | payer MEDICARE, MEDICAID ==
[2019-01-30 14:12] LABS: ABSOLUTE BASOPHILS # (AUTO) 0.1 10^3/uL (0.0-0.2); ABSOLUTE EOSINOPHILS # (AUTO) 0.2 10^3/uL (0.0-0.6); ABSOLUTE LYMPHOCYTES (AUTO) 1.7 10^3/uL (0.5-4.7); ABSOLUTE MONOCYTES (AUTO) 0.6 10^3/uL (0.1-1.4); ABSOLUTE NEUT (AUTO) 6.4 10^3/uL (1.7-8.2); BASOPHILS % (AUTO) 0.7 % (0-2); EOSINOPHILS % (AUTO) 2.5 % (0-6); HEMOGLOBIN 11.6 g/dL (12.0-15.5); LYMPHOCYTES % (AUTO) 18.9 % (13-45); MEAN CORPUSCULAR HEMOGLOBIN 30.5 pg (27.0-33.4); MEAN CORPUSCULAR VOLUME 90 fl (80-97); PLATELET COUNT 175 10^3/uL (150-450); RED CELL DISTRIBUTION WIDTH 13.5 % (11.5-14.0); SEGMENTED NEUTROPHILS % (AUTO) 70.9 % (42-78); TOTAL CELLS COUNTED % (AUTO) 100 %
[2019-01-30 14:22] LABS: ALANINE AMINOTRANSFERASE 19 U/L (9-52); ALBUMIN 3.8 g/dL (3.5-5.0); ALKALINE PHOSPHATASE 64 U/L (38-126); ANION GAP 10 (5-19); ASPARTATE AMINO TRANSFERASE 25 U/L (14-36); BILIRUBIN,DIRECT 0.2 mg/dL (0.0-0.4); BILIRUBIN,TOTAL 0.7 mg/dL (0.2-1.3); BLOOD UREA NITROGEN 24 mg/dL (7-20); CALCIUM 9.9 mg/dL (8.4-10.2); CARBON DIOXIDE 21 mmol/L (22-30); CHLORIDE 106 mmol/L (98-107); CREATINE KINASE 80 U/L (30-135); GLUCOSE 88 mg/dL (75-110); POTASSIUM 4.3 mmol/L (3.6-5.0); SODIUM 137.2 mmol/L (137-145); TOTAL PROTEIN 7.4 g/dL (6.3-8.2)
[2019-01-30 14:34] LABS: CREATINE KINASE MB 0.69 ng/mL (<4.55)
[2019-01-30 14:35] LABS: TROPONIN I < 0.012 ng/mL
[2019-01-30 14:35] LABS: APPEARANCE,URINE SLIGHTLY-CLOUDY; BILIRUBIN,URINE NEGATIVE (NEGATIVE); COLOR,URINE YELLOW; GLUCOSE, URINE NEGATIVE (NEGATIVE); KETONES,URINE TRACE mg/dL (NEGATIVE); LEUKOCYTE ESTERASE,URINE SMALL (NEGATIVE); NITRITE,URINE NEGATIVE (NEGATIVE); PROTEIN,URINE NEGATIVE (NEGATIVE); URINE SPECIFIC GRAVITY 1.012
--- NOTE | 2019-01-30 16:08 | RADIOLOGY REPORT (SQ) ---
EXAM DESCRIPTION: CHEST SINGLE VIEW COMPLETED DATE/TIME: 01/30/2019 3:58 pm REASON FOR STUDY: syncope COMPARISON: 12/11/2017. EXAM PARAMETERS: NUMBER OF VIEWS: One view. TECHNIQUE: Single frontal radiographic view of the chest acquired. RADIATION DOSE: NA LIMITATIONS: None. FINDINGS: LUNGS AND PLEURA: No opacities, masses or pneumothorax. No pleural effusion. MEDIASTINUM AND HILAR STRUCTURES: No masses. Contour normal. HEART AND VASCULAR STRUCTURES: Heart normal in size. Normal vasculature. BONES: No acute findings. HARDWARE: None in the chest. OTHER: No other significant finding. IMPRESSION: NO ACUTE RADIOGRAPHIC FINDING IN THE CHEST. TECHNICAL DOCUMENTATION: JOB ID: [id number] [employer] by [employer]- All Rights Reserved Reading location - IP/workstation name: [email or web address]
[2019-01-30] MEDS ORDERED: NORMAL SALINE 1000 ML 500 ML IV ONE (16:32)
--- NOTE | 2019-01-30 17:22 | ER Document Report ---
ED Syncope and Near Syncope - General Chief Complaint: Syncope Stated Complaint: SYNCOPE Time Seen by Provider: 01/30/19 13:56 Primary Care Provider: TRIXIE FELDMAN MD [Primary Care Provider] - Follow up as needed Mode of Arrival: Medic Information source: Patient Notes: Patient is an 78-year-old female who presents to the emergency department via EMS from home for an apparent syncopal episode. Daughter reports that while she was sitting at the table she "passed out". She denies her falling or incurring any injuries. She reports patient has not been sick lately. She has not had any fevers, nausea, vomiting or diarrhea. Patient is incontinent of urine and has been having a normal amount of briefs and daughter denies any particular foul odor. She has not had an episode of syncope in the past. Dr. Feldman is her primary care provider. TRAVEL OUTSIDE OF THE [place] IN LAST 30 DAYS: No - Related Data Allergies/Adverse Reactions: Penicillins Allergy (Mild, Verified 04/17/17 07:32) prednisone Allergy (Mild, Verified 04/17/17 07:32) Past Medical History - General Information source: Relative - Social History Smoking Status: Never Smoker Family History: Hypertension Patient has suicidal ideation: No Patient has homicidal ideation: No - Past Medical History Cardiac Medical History: Reports: Hx Congestive Heart Failure, Hx Coronary Artery Disease, Hx Heart Attack - JANUARY 2013, Hx Hypercholesterolemia, Hx Hypertension Pulmonary Medical History: Reports: Hx Asthma Denies: Hx Tuberculosis Neurological Medical History: Reports: Hx Seizures - 2016. Denies: Hx Cerebrovascular Accident Endocrine Medical History: Reports: Hx Diabetes Mellitus Type 2 Renal/ Medical History: Reports: Hx Kidney Stones. Denies: Hx Peritoneal Dialysis GI Medical History: Denies: Hx Hepatitis, Hx Hiatal Hernia, Hx Ulcer Musculoskeletal Medical History: Reports Hx Arthritis Psychiatric Medical History: Reports: Hx Dementia, Hx Depression Infectious Medical History: Denies: Hx Hepatitis Past Surgical History: Reports: Hx Cardiac Catheterization, Hx Coronary Stent - 2012, Hx Orthopedic Surgery - TOTAL RIGHT HIP. Denies: Hx Appendectomy, Hx Bowel Surgery, Hx Section, Hx Cholecystectomy, Hx Coronary Artery Bypass Graft, Hx Gastric Bypass Surgery, Hx Herniorrhaphy, Hx Hysterectomy, Hx Mastectomy, Hx Open Heart Surgery, Hx Pacemaker, Hx Tonsillectomy, Hx Tubal Ligation - Immunizations Hx Diphtheria, Pertussis, Tetanus Vaccination: Yes Hx Pneumococcal Vaccination: 07/04/11 Review of Systems - Review of Systems Constitutional: Other - Syncope just prior to arrival EENT: No symptoms reported Cardiovascular: No symptoms reported Respiratory: No symptoms reported Gastrointestinal: No symptoms reported Genitourinary: No symptoms reported Female Genitourinary: No symptoms reported Musculoskeletal: No symptoms reported Skin: No symptoms reported Hematologic/Lymphatic: No symptoms reported Neurological/Psychological: No symptoms reported Physical Exam - Vital signs Vitals: Temp 97.7 F 01/30/19 12:04 - Notes Notes: PHYSICAL EXAMINATION: GENERAL: Well-nourished and in no acute distress. HEAD: Atraumatic, normocephalic. EYES: Pupils equal round and reactive to light, extraocular movements intact, conjunctiva are normal. ENT: Nares patent, oropharynx clear without exudates. Moist mucous membranes. NECK: Normal range of motion, supple without lymphadenopathy LUNGS: Breath sounds clear to auscultation bilaterally and equal. No wheezes rales or rhonchi. HEART: Regular rate and rhythm without murmurs ABDOMEN: Soft, nontender, nondistended abdomen. No guarding, no rebound. No masses appreciated. Female : No CVA tenderness Musculoskeletal: Normal range of motion, no pitting or edema. No cyanosis. NEUROLOGICAL: Cranial nerves grossly intact. Normal speech, normal gait. Normal sensory, motor exams PSYCH: Normal mood, normal affect. SKIN: Warm, Dry, normal turgor, no rashes noted. Course - Re-evaluation Re-evalutation: CBC is unremarkable. EKG shows a sinus rhythm, rate of 58, QTc 492, normal axis with no ST segment elevations or depressions. Electrolytes and cardiac enzymes are unremarkable. Patient does have an elevated creatinine of 1.41. She has not had this recently however she has had a history of elevated creatinines several years ago. Chest x-ray is unremarkable does not show any infiltrates or evidence of pneumonia. Patient's vital signs have been stable during her stay in the emergency department. Patient does have baseline dementia per her family but denies any acute complaints. Urinalysis shows trace ketones, hematuria and small leukocyte esterase. Negative nitrites. Order placed for a urine culture. Patient will be given 500 cc fluid bolus. 01/30/19 17:26 Case was discussed with patient's primary care provider, Dr. Feldman who would like patient to be brought in for observation. Admission orders placed. Family updated on plan of care. - Vital Signs Vital signs: Temp Pulse Resp BP Pulse Ox 97.7 F 17 145/68 H 100 01/30/19 12:05 01/30/19 16:01 01/30/19 16:01 01/30/19 16:01 - Laboratory Result Diagrams: 01/30/19 13:53 01/30/19 13:53 Laboratory results interpreted by me: 01/30/19 01/30/19 01/30/19 13:53 13:53 14:08 Hgb 11.6 L Hct 34.0 L Carbon Dioxide 21 L BUN 24 H Creatinine 1.41 H Est GFR ( Amer) 43 L Est GFR (Non-Af Amer) 36 L Urine Ketones TRACE H Urine Blood LARGE H Urine Urobilinogen 2.0 H Ur Leukocyte Esterase SMALL H Discharge - Discharge Clinical Impression: Elevated serum creatinine Syncope Qualifiers: Syncope type: unspecified Qualified Code(s): R55 - Syncope and collapse Condition: Stable Disposition: ADMITTED OBSERVATION Admitting Provider: Erasmo Unit Admitted: Medical Floor Referrals: TRIXIE FELDMAN MD [Primary Care Provider] - Follow up as needed
[2019-01-30] MEDS ORDERED: LEVOFLOXACIN 250 MG/D5W RTU 250 MG/50 ML RTUPB IV ONE (18:22)
[2019-01-30] MEDS: LEVOFLOXACIN 250 MG/D5W RTU 250 MG/50 ML RTUPB IV SCH (18:53)
[2019-01-30] MEDS: NORMAL SALINE 1000 ML 1,000 ML IV PRN ×2 (18:54→23:21)
--- NOTE | 2019-01-30 19:23 | EKG REPORT ---
SEVERITY:- ABNORMAL ECG - SINUS RHYTHM FIRST DEGREE AV BLOCK ANTERIOR INFARCT, AGE INDETERMINATE BORDERLINE PROLONGED QT INTERVAL : Confirmed by: Nika Peoples MD 30-Jan-2019 19:23:17
[2019-01-31 06:25] LABS: ABSOLUTE BASOPHILS # (AUTO) 0.1 10^3/uL (0.0-0.2); ABSOLUTE EOSINOPHILS # (AUTO) 0.3 10^3/uL (0.0-0.6); ABSOLUTE LYMPHOCYTES (AUTO) 2.2 10^3/uL (0.5-4.7); ABSOLUTE MONOCYTES (AUTO) 0.5 10^3/uL (0.1-1.4); ABSOLUTE NEUT (AUTO) 3.2 10^3/uL (1.7-8.2); BASOPHILS % (AUTO) 0.9 % (0-2); EOSINOPHILS % (AUTO) 4.9 % (0-6); HEMATOCRIT 29.5 % (36.0-47.0); HEMOGLOBIN 10.2 g/dL (12.0-15.5); LYMPHOCYTES % (AUTO) 34.9 % (13-45); MEAN CORPUSCULAR HEMOGLOBIN 31.3 pg (27.0-33.4); MEAN CORPUSCULAR HGB CONC 34.6 g/dL (32.0-36.0); MEAN CORPUSCULAR VOLUME 90 fl (80-97); MONOCYTES % (AUTO) 8.3 % (3-13); PLATELET COUNT 162 10^3/uL (150-450); RED BLOOD COUNT 3.27 10^6/uL (3.72-5.28); RED CELL DISTRIBUTION WIDTH 13.7 % (11.5-14.0); TOTAL CELLS COUNTED % (AUTO) 100 %; WHITE BLOOD COUNT 6.2 10^3/uL (4.0-10.5)
[2019-01-31] MEDS: PANTOPRAZOLE SODIUM 40 MG TABLET.DR PO SCH (06:25)
[2019-01-31 06:41] LABS: ANION GAP 9 (5-19); BLOOD UREA NITROGEN 19 mg/dL (7-20); CALCIUM 9.3 mg/dL (8.4-10.2); CARBON DIOXIDE 18 mmol/L (22-30); CHLORIDE 108 mmol/L (98-107); GLUCOSE 71 mg/dL (75-110); POTASSIUM 3.8 mmol/L (3.6-5.0); SODIUM 134.5 mmol/L (137-145)
[2019-01-31] MEDS: ENOXAPARIN SODIUM INJ 30 MG/0.3 ML DISP.SYRIN SUBCUT SCH (10:13)
--- NOTE | 2019-01-31 12:22 | PDOC H&P ---
History of Present Illness Admission Date/PCP: 01/30/19 17:30 TRIXIE MCRAESAMYTorrey Patient complains of: Passed out History of Present Illness: JOHNATHAN FUNK is a 78 year old female patient known to my practice who presented to the ED via EMS service activated by daughter following observed episode of syncope at her lunch table. Daughter reported that patient was exhibiting some abnormal search movement with her hands looking for her feeding folk and subsequently became unresponsive. She denied any clonic or tonic movement. There has been period of unwell in recently with episode of near fall at home. There was reported chills and feeling cold all the time. The reported chest pain or difficulty with breathing. No nausea, vomiting or abdominal pain. Patient experience constipation recently that resolved with use of benefiber as per daughter report. There is no observed or reported dysuria, hematuria, or flank pain. Daughter reported urinary frequency and urinary incontinence but denied any unusual odor or abnormal character. Her initial evaluation in the ED was remarkable for abnormal urinalysis and azotemia. Past Medical History Cardiac Medical History: Reports: Congestive Heart Failure, Coronary Artery Di sease, Myocardial Infarction - JANUARY 2013, Hyperlipidema, Hypertension Pulmonary Medical History: Reports: Asthma Denies: Tuberculosis Neurological Medical History: Reports: Seizures - 2016 Endocrine Medical History: Reports: Diabetes Mellitus Type 2 GI Medical History: Denies: Hepatitis, Hiatal Hernia Musculoskeltal Medical History: Reports: Arthritis Psychiatric Medical History: Reports: Dementia, Depression Hematology: Reports: Anemia Denies: Sickle Cell Disease Past Surgical History Past Surgical History: Reports: Cardiac Catheterization, Coronary Stent - 2002, 2012, Orthopedic Surgery - TOTAL RIGHT HIP Denies: Amputation, Appendectomy, Section, Cholecystectomy, Coronary Artery Bypass Graft, Gastric Bypass Surgery, Herniorrhaphy, Hysterectomy, Mastectomy, Pacemaker, Tonsillectomy, Tubal Ligation Social History Smoking Status: Never Smoker Frequency of Alcohol Use: None Hx Recreational Drug Use: No Drugs: None Hx Prescription Drug Abuse: No - Advance Directive Resuscitation Status: Full Code Family History Family History: Hypertension Parental Family History Reviewed: Yes Children Family History Reviewed: Yes Sibling(s) Family History Reviewed.: Yes Medication/Allergy Allergies/Adverse Reactions: Penicillins Allergy (Mild, Verified 04/17/17 07:32) prednisone Allergy (Mild, Verified 04/17/17 07:32) Review of Systems Constitutional: PRESENT: chills, weakness - generalized Nose, Mouth, and Throat: ABSENT: as per HPI, headache(s), mouth pain, sore throat, vertigo, other Cardiovascular: ABSENT: chest pain, dyspnea on exertion, edema, orthropnea, palpitations Respiratory: ABSENT: cough, hemoptysis Gastrointestinal: ABSENT: abdominal pain, constipation, diarrhea, hematemesis, hematochezia, nausea, vomiting Genitourinary: PRESENT: other - urinary frequency and incontinence. ABSENT: dysuria, hematuria Integumentary: ABSENT: rash, wounds Neurological: PRESENT: syncope. ABSENT: abnormal gait, abnormal speech, confusion, dizziness, focal weakness Psychiatric: ABSENT: anxiety, depression, homidical ideation, suicidal ideation Endocrine: ABSENT: cold intolerance, heat intolerance, polydipsia, polyuria Hematologic/Lymphatic: ABSENT: easy bleeding, easy bruising, lymphadenopathy Allergic/Immunologic: ABSENT: seasonal rhinorrhea Physical Exam Vital Signs: Temp Pulse Resp BP Pulse Ox 97.7 F 17 145/68 H 100 01/30/19 12:05 01/30/19 16:01 01/30/19 16:01 01/30/19 16:01 Intake & Output 01/29/19 01/30/19 01/31/19 06:59 06:59 06:59 Intake Total 500 Balance 500 General appearance: PRESENT: no acute distress Head exam: PRESENT: atraumatic, normocephalic Eye exam: PRESENT: conjunctiva pink, EOMI, PERRLA. ABSENT: scleral icterus Ear exam: PRESENT: normal external ear exam Mouth exam: PRESENT: moist Respiratory exam: PRESENT: clear to auscultation constantin, decreased breath sounds - at lung bases Cardiovascular exam: PRESENT: RRR. ABSENT: diastolic murmur, rubs, systolic murmur Vascular exam: ABSENT: pallor GI/Abdominal exam: PRESENT: normal bowel sounds, soft. ABSENT: distended, guarding, mass, organolmegaly, rebound, tenderness Rectal exam: PRESENT: deferred Extremities exam: ABSENT: pedal edema Musculoskeletal exam: PRESENT: deformity - related to multiple joints in volvement with arthritis Neurological exam: PRESENT: alert, awake, oriented to person, CN II-XII grossly intact. ABSENT: motor sensory deficit Psychiatric exam: PRESENT: appropriate affect, normal mood. ABSENT: homicidal ideation, suicidal ideation Skin exam: PRESENT: dry, warm Results Laboratory Results: 01/30/19 13:53 03/30/19 13:53 01/30/19 01/30/19 01/30/19 13:53 13:53 14:08 WBC 9.0 RBC 3.80 Hgb 11.6 L Hct 34.0 L MCV 90 MCH 30.5 MCHC 34.0 RDW 13.5 Plt Count 175 Seg Neutrophils % 70.9 Lymphocytes % 18.9 Monocytes % 7.0 Eosinophils % 2.5 Basophils % 0.7 Absolute Neutrophils 6.4 Absolute Lymphocytes 1.7 Absolute Monocytes 0.6 Absolute Eosinophils 0.2 Absolute Basophils 0.1 Sodium 137.2 Potassium 4.3 Chloride 106 Carbon Dioxide 21 L Anion Gap 10 BUN 24 H Creatinine 1.41 H Est GFR ( Amer) 43 L Est GFR (Non-Af Amer) 36 L Glucose 88 Calcium 9.9 Total Bilirubin 0.7 AST 25 ALT 19 Alkaline Phosphatase 64 Total Protein 7.4 Albumin 3.8 Urine Color YELLOW Urine Appearance SLIGHTLY-CLOUDY Urine pH 6.0 Ur Specific Butler 1.012 Urine Protein NEGATIVE Urine Glucose (UA) NEGATIVE Urine Ketones TRACE H Urine Blood LARGE H Urine Nitrite NEGATIVE Ur Leukocyte Esterase SMALL H Urine WBC (Auto) 10 Urine RBC (Auto) 12 01/30/19 01/30/19 13:53 13:53 Creatine Kinase 80 CK-MB (CK-2) 0.69 Troponin I < 0.012 Impressions: Chest X-Ray 01/30/19 15:39 IMPRESSION: NO ACUTE RADIOGRAPHIC FINDING IN THE CHEST. Assessment & Plan - Diagnosis (1) Syncope Qualifiers: Syncope type: unspecified Qualified Code(s): R55 - Syncope and collapse Is this a current diagnosis for this admission?: Yes Plan: Probably due to her ongoing infection. Maintain on support care at present time. (2) UTI (urinary tract infection) Qualifiers: Urinary tract infection type: acute pyelonephritis Qualified Code(s): N10 - Acute pyelonephritis Is this a current diagnosis for this admission?: Yes Plan: Start on empiric IV Levofloxacin coverage pending culture findings. (3) Acute renal injury Is this a current diagnosis for this admission?: Yes Plan: Maintain on cautious IV fluid hydration with normal saline at 75 ml/hour. (4) Diabetes mellitus type 2 in nonobese Is this a current diagnosis for this admission?: Yes Plan: She has been mainly diet control on outpatient. We will continue to monitor and manage accordingly. (5) HTN (hypertension) Qualifiers: Hypertension type: essential hypertension Qualified Code(s): I10 - Essential (primary) hypertension Is this a current diagnosis for this admission?: Yes Plan: Maintain on preadmission medication management. (6) Dementia in Alzheimer's disease with depression Is this a current diagnosis for this admission?: Yes Plan: Maintain on preadmission medication management. - Time Time Spent: 50 to 70 Minutes Medications reviewed and adjusted accordingly: Yes Anticipated discharge: Home with Homehealth Within: Other - Inpatient Certification Based on my medical assessment, after consideration of the patient's comorbidities, presenting symptoms, or acuity I expect that the services needed warrant INPATIENT care.: No I certify that my determination is in accordance with my understanding of Medicare's requirements for reasonable and necessary INPATIENT services [42 CFR 412.3e].: No Post Hospital Care: D/C Program Management Professional Documentation - Plan Summary Plan Summary: See admitting attending physician orders. Her overall prognosis remain guarded in view of advanced age and morbidities. I had extensive discussion with daughter and patient at bedside regarding resuscitation, presently she is full code.
--- NOTE | 2019-01-31 12:27 | PDOC PROGRESS REPORT ---
Subjective Progress Note for:: 01/31/19 Subjective:: No recurrent syncopal episode since admission. Tolerating oral feeding with assistance. No reported chest pain or difficulty with breathing. No fever. Chills and feeling cold do persist. Reason For Visit: UTI,DEHYDRATION,SYNCOPE Physical Exam Vital Signs: Temp Pulse Resp BP Pulse Ox 98.0 F 64 15 141/44 H 99 01/31/19 08:16 01/31/19 08:16 01/31/19 08:16 01/31/19 08:16 01/31/19 08:16 Intake & Output 01/30/19 01/31/19 02/01/19 06:59 06:59 06:59 Intake Total 1009 Balance 1009 Weight 48.2 kg General appearance: PRESENT: no acute distress Head exam: PRESENT: atraumatic, normocephalic Eye exam: PRESENT: conjunctiva pink. ABSENT: scleral icterus Ear exam: PRESENT: normal external ear exam Mouth exam: PRESENT: moist Respiratory exam: PRESENT: clear to auscultation constantin, decreased breath sounds - at lung bases Cardiovascular exam: PRESENT: RRR. ABSENT: diastolic murmur, rubs, systolic murmur Vascular exam: ABSENT: pallor GI/Abdominal exam: PRESENT: normal bowel sounds, soft. ABSENT: distended, gu arding, mass, organolmegaly, rebound, tenderness Extremities exam: ABSENT: pedal edema Neurological exam: PRESENT: alert, awake Psychiatric exam: PRESENT: appropriate affect, normal mood. ABSENT: homicidal ideation, suicidal ideation Skin exam: PRESENT: dry, warm Results Laboratory Results: 01/31/19 05:35 01/31/19 05:35 01/30/19 01/30/19 01/30/19 13:53 13:53 14:08 WBC 9.0 RBC 3.80 Hgb 11.6 L Hct 34.0 L MCV 90 MCH 30.5 MCHC 34.0 RDW 13.5 Plt Count 175 Seg Neutrophils % 70.9 Lymphocytes % 18.9 Monocytes % 7.0 Eosinophils % 2.5 Basophils % 0.7 Absolute Neutrophils 6.4 Absolute Lymphocytes 1.7 Absolute Monocytes 0.6 Absolute Eosinophils 0.2 Absolute Basophils 0.1 Sodium 137.2 Potassium 4.3 Chloride 106 Carbon Dioxide 21 L Anion Gap 10 BUN 24 H Creatinine 1.41 H Est GFR ( Amer) 43 L Est GFR (Non-Af Amer) 36 L Glucose 88 Calcium 9.9 Total Bilirubin 0.7 AST 25 ALT 19 Alkaline Phosphatase 64 Total Protein 7.4 Albumin 3.8 Urine Color YELLOW Urine Appearance SLIGHTLY-CLOUDY Urine pH 6.0 Ur Specific [place] 1.012 Urine Protein NEGATIVE Urine Glucose (UA) NEGATIVE Urine Ketones TRACE H Urine Blood LARGE H Urine Nitrite NEGATIVE Ur Leukocyte Esterase SMALL H Urine WBC (Auto) 10 Urine RBC (Auto) 12 01/31/19 01/31/19 05:35 05:35 WBC 6.2 RBC 3.27 L Hgb 10.2 L Hct 29.5 L MCV 90 MCH 31.3 MCHC 34.6 RDW 13.7 Plt Count 162 Seg Neutrophils % 51.0 Lymphocytes % 34.9 Monocytes % 8.3 Eosinophils % 4.9 Basophils % 0.9 Absolute Neutrophils 3.2 Absolute Lymphocytes 2.2 Absolute Monocytes 0.5 Absolute Eosinophils 0.3 Absolute Basophils 0.1 Sodium 134.5 L Potassium 3.8 Chloride 108 H Carbon Dioxide 18 L Anion Gap 9 BUN 19 Creatinine 1.26 H Est GFR ( Amer) 49 L Est GFR (Non-Af Amer) 41 L Glucose 71 L Calcium 9.3 Total Bilirubin AST ALT Alkaline Phosphatase Total Protein Albumin Urine Color Urine Appearance Urine pH Ur Specific [place] Urine Protein Urine Glucose (UA) Urine Ketones Urine Blood Urine Nitrite Ur Leukocyte Esterase Urine WBC (Auto) Urine RBC (Auto) 01/30/19 01/30/19 13:53 13:53 Creatine Kinase 80 CK-MB (CK-2) 0.69 Troponin I < 0.012 Impressions: Chest X-Ray 01/30/19 15:39 IMPRESSION: NO ACUTE RADIOGRAPHIC FINDING IN THE CHEST. Assessment & Plan - Diagnosis (1) Syncope Qualifiers: Syncope type: unspecified Qualified Code(s): R55 - Syncope and collapse Is this a current diagnosis for this admission?: Yes Plan: Continue supportive management. (2) UTI (urinary tract infection) Qualifiers: Urinary tract infection type: acute pyelonephritis Qualified Code(s): N10 - Acute pyelonephritis Is this a current diagnosis for this admission?: Yes Plan: Maintain on IV Levofloxacin. To date and at the time of my documentation, there is no report on cultures. (3) Acute renal injury Is this a current diagnosis for this admission?: Yes Plan: Improving. Maintain on IV fluid support. (4) Diabetes mellitus type 2 in nonobese Is this a current diagnosis for this admission?: Yes (5) HTN (hypertension) Qualifiers: Hypertension type: essential hypertension Qualified Code(s): I10 - Essential (primary) hypertension Is this a current diagnosis for this admission?: Yes Plan: Continue current approved medication as per medication reconciliation efforts. (6) Dementia in Alzheimer's disease with depression Is this a current diagnosis for this admission?: Yes Plan: Continue current approved medication as per medication reconciliation efforts. - Time Time Spent with patient: 25-34 minutes Medications reviewed and adjusted accordingly: Yes Anticipated discharge: Home with Homehealth Within: within 24 hours - Inpatient Certification Post Hospital Care: D/C Manager Port Documentation - Plan Summary Plan Summary: Continue current medication management. Follow up on cultures report.
[2019-01-31] MEDS ORDERED: GLUCAGON,HUMAN RECOMB 1 MG INJ IM PRN (13:30)
[2019-01-31] MEDS ORDERED: DEXTROSE 40% GEL 15 GM TUBE PO PRN ×2 (13:30)
[2019-01-31] MEDS ORDERED: DEXTROSE 50%-WATER 25 GM/50 ML DISP.SYRIN IV PRN ×2 (13:30)
[2019-01-31] MEDS: NORMAL SALINE 1000 ML 1,000 ML IV PRN (13:49)
[2019-01-31] MEDS: INSULIN LISPRO 100 UNIT/ML 3 ML VIAL SUBCUT SCH ×2 (17:50→21:49)
[2019-01-31] MEDS: TIMOLOL MALEATE 0.5% OPH SOLN 5 ML OU SCH (18:03)
[2019-01-31] MEDS: BRIMONIDINE TARTRATE 0.2% OPH SOLN 5 ML OU SCH (18:04)
[2019-01-31] MEDS ORDERED: LEVOFLOXACIN 250 MG/D5W RTU 250 MG/50 ML RTUPB IV ONE (18:05)
[2019-01-31] MEDS: LEVOFLOXACIN 250 MG/D5W RTU 250 MG/50 ML RTUPB IV SCH (19:04)
[2019-01-31] MEDS: METOPROLOL TARTRATE 25 MG TABLET PO SCH (21:51)
[2019-01-31] MEDS ORDERED: BIMATOPROST 0.01% OPH SOLN 2.5 ML/BOTTLE OU SCH (22:00)
[2019-02-01] MEDS: NORMAL SALINE 1000 ML 1,000 ML IV PRN (04:05)
[2019-02-01] MEDS: PANTOPRAZOLE SODIUM 40 MG TABLET.DR PO SCH (06:23)
[2019-02-01] MEDS: INSULIN LISPRO 100 UNIT/ML 3 ML VIAL SUBCUT SCH ×3 (07:51→16:13)
[2019-02-01 08:00] LABS: BLOOD UREA NITROGEN 16 mg/dL (7-20); CALCIUM 8.6 mg/dL (8.4-10.2); GLUCOSE 74 mg/dL (75-110); PHOSPHORUS 2.8 mg/dL (2.5-4.5); POTASSIUM 3.6 mmol/L (3.6-5.0)
[2019-02-01 08:05] LABS: CARBON DIOXIDE 20 mmol/L (22-30); CHLORIDE 113 mmol/L (98-107); SODIUM 137.3 mmol/L (137-145)
[2019-02-01 08:21] LABS: ANION GAP 4 (5-19)
[2019-02-01 08:47] LABS: ABSOLUTE BASOPHILS # (AUTO) 0.1 10^3/uL (0.0-0.2); ABSOLUTE EOSINOPHILS # (AUTO) 0.4 10^3/uL (0.0-0.6); ABSOLUTE LYMPHOCYTES (AUTO) 2.3 10^3/uL (0.5-4.7); ABSOLUTE MONOCYTES (AUTO) 0.5 10^3/uL (0.1-1.4); ABSOLUTE NEUT (AUTO) 2.3 10^3/uL (1.7-8.2); EOSINOPHILS % (AUTO) 7.1 % (0-6); HEMATOCRIT 26.3 % (36.0-47.0); LYMPHOCYTES % (AUTO) 41.5 % (13-45); MEAN CORPUSCULAR HEMOGLOBIN 30.8 pg (27.0-33.4); MEAN CORPUSCULAR HGB CONC 34.1 g/dL (32.0-36.0); MEAN CORPUSCULAR VOLUME 91 fl (80-97); PLATELET COUNT 147 10^3/uL (150-450); RED CELL DISTRIBUTION WIDTH 13.5 % (11.5-14.0); SEGMENTED NEUTROPHILS % (AUTO) 41.4 % (42-78); TOTAL CELLS COUNTED % (AUTO) 100 %; WHITE BLOOD COUNT 5.6 10^3/uL (4.0-10.5)
[2019-02-01] MEDS ORDERED: LOSARTAN POTASSIUM 50 MG TABLET PO SCH (10:00)
[2019-02-01] MEDS ORDERED: RIVASTIGMINE 4.6 MG/24 HR PATCH.TD24 TOP SCH (10:00)
[2019-02-01] MEDS ORDERED: CLOPIDOGREL BISULFATE 75 MG TABLET PO SCH (10:00)
[2019-02-01] MEDS: BRIMONIDINE TARTRATE 0.2% OPH SOLN 5 ML OU SCH ×2 (10:00→17:16)
[2019-02-01] MEDS ORDERED: (PENDING PHARMACY ID) (Irbesartan [Avapro] 300 MG) PO SCH (10:00)
[2019-02-01] MEDS ORDERED: SITAGLIPTIN PHOSPHATE 50 MG TABLET PO SCH (10:00)
[2019-02-01] MEDS: TIMOLOL MALEATE 0.5% OPH SOLN 5 ML OU SCH ×2 (10:00→17:16)
[2019-02-01] MEDS: METOPROLOL TARTRATE 25 MG TABLET PO SCH (10:02)
[2019-02-01] MEDS: ENOXAPARIN SODIUM INJ 30 MG/0.3 ML DISP.SYRIN SUBCUT SCH (10:03)
--- NOTE | 2019-02-01 10:31 | Physician Advisory Note ---
Physician Advisor ProgressNote .: Pursuant to the plan for Navi Robles, I have reviewed the medical record for this patient. Physician Advisor Statement: 78yo Medicare pt w/syncope & DAVE, UTI, DM-2, underlying __ type CHF (EF 45% & gr 2 diast dysfn by 2018 ECHO), COPD, CAD, HTN/HLD, dementia. Wt up w/IVF from 48.2 to 56.6kg, giving BMI 19.5 based on the wt of 56.6kg. - Approp'ly brought in as Obs initially, given many pts w/syncope/DAVE/UTI can be tx'd outpt & safely d/c'd next day. Definition: malnutrition can be dx'd based on: A. GLIM criteria (age 70+ w/BMI <20 = severe malnutrition), or on B. ASPEN criteria (2+ of: mild/mod/sev loss muscle mass, mild/mod/sev loss subcut fat, sig.ly reduced wholesale buyer strength [=severe], amt wt loss [>5% in 1mo or >10% in 6+mo = severe], ...) Attending, please document: 1. Finding supporting dx of "Acute pyelonephritis" - or state if this dx was ruled out & pt has another dx, such as "acute cystitis". 2. What is pt's baseline Cr? (To support dx of DAVE) 3. Does pt have "malnutrition", or is that dx not present? - If present, is it mild, mod, or severe? (State the evidence.) 4. Was pt's Na of 134.5 on 01/31: A. indicative of "Acute hyponatremia due to ____" [further indicating her degree of initial hypovolemia, for ex, or ...?], or B. a non-significant finding? 5. Please state type of CHF (acute/chr, syst/diast) 6. Medical necessity/ points - On 01/31, pt had acutely worsened Na level, & worsened bicarb level as well, despite improvement in BUN & Cr; if these were concerning to attg, then they would be reason to keep her a 2nd MN in hospital with cont'd tx & monitoring. - Pt was also still having chills on 01/31, which would lead to concerns as to whether current abx was or was not adequately covering her infxn, and ur cx results still not available at that time. Therefore, 2nd MN was appropriate for this clinical reason. - If pt's baseline Cr is 0.9, then her Cr was, & is, still not back to baseline, & continued cautious IVF w/ongoing close monitoring in hospital for a 2nd, & 3rd, MN due to underlying chronic ____ type CHF is appropriate. Therefore, conversion to Inpatient appropriate as of 01/31 PM. Thanks, CK
--- NOTE | 2019-02-01 13:19 | PDOC DISCHARGE SUMMARY ---
General - Admit/Disc Date/PCP Admission Date/Primary Care Provider: 01/30/19 17:30 TRIXIEBRISEYDA FELDMAN Discharge Date: 02/01/19 - Discharge Diagnosis (1) Syncope Is this a current diagnosis for this admission?: Yes Summary: Resolved. Probable due to her underlying UTI. (2) Klebsiella cystitis Is this a current diagnosis for this admission?: Yes Summary: She will be discharged home on Levofloxcin 250 mg p.o daily x 5 days. (3) Acute renal injury Is this a current diagnosis for this admission?: Yes Summary: Resolving. (4) Diabetes mellitus type 2 in nonobese Is this a current diagnosis for this admission?: Yes (5) HTN (hypertension) Is this a current diagnosis for this admission?: Yes (6) Dementia in Alzheimer's disease with depression Is this a current diagnosis for this admission?: Yes - Additional Information Resuscitation Status: Full Code Prescriptions: Levofloxacin [Levaquin 250 mg Tablet] 250 mg PO DAILY #5 tablet Home Medications: Bimatoprost [Lumigan 0.01% Oph Soln 2.5 ml/Bottle] 1 drop OU QHS 01/31/19 Brimonidine Tartrate/Timolol [Combigan 0.2%-0.5% Eye Drops] 1 drop OU BID 01/31/19 Clopidogrel Bisulfate [Plavix 75 mg Tablet] 75 mg PO DAILY 01/31/19 Haloperidol [Haldol 0.5 mg Tablet] 0.25 mg PO BID 01/31/19 Irbesartan [Avapro] 300 mg PO DAILY 01/31/19 Metoprolol Tartrate [Lopressor 25 mg Tablet] 25 mg PO Q12 01/31/19 Multivit with Iron,Minerals [Spectravite Senior] 1 tab PO DAILY 01/31/19 Peg 400/Hypromellose/Glycerin [Visine Dry Eye Relief Drop] 1 drop OU TID 01/31/19 Rivastigmine [Exelon 4.6 mg/24 Hr Transdermal Patch] 1 patch TOP DAILY 01/31/19 Sitagliptin Phosphate [Januvia 50 mg Tablet] 50 mg PO DAILY 01/31/19 Levofloxacin [Levaquin 250 mg Tablet] 250 mg PO DAILY #5 tablet 02/01/19 History of Present Illness Patient complains of: Passed out History of Present Illness: JOHNATHAN FUNK is a 78 year old female patient known to my practice who presented to the ED via EMS service activated by daughter following observed episode of syncope at her lunch table. Daughter reported that patient was exhibiting some abnormal search movement with her hands looking for her feeding folk and subsequently became unresponsive. She denied any clonic or tonic movement. There has been period of unwell in recently with episode of near fall at home. There was reported chills and feeling cold all the time. The reported chest pain or difficulty with breathing. No nausea, vomiting or abdominal pain. Patient experience constipation recently that resolved with use of benefiber as per daughter report. There is no observed or reported dysuria, hematuria, or flank pain. Daughter reported urinary frequency and urinary incontinence but denied any unusual odor or abnormal character. Her initial evaluation in the ED was remarkable for abnormal urinalysis and azotemia. Her morbidities include hypertension, Diabetes mellitus type 2, SDAT, and osteoarthritis. Hospital Course Hospital Course: She was admitted due to concern for UTI and acute renal injury based on her associated abnormal urinalysis and comparative worsening renal indices since her last admission to this hospital. Her urine culture grew Klebsiella pneumoniae that is sensitive to Levofloxacin. She received two doses of IV Levofloxacin and will be discharged home on oral therapy for five days. Her renal indices are improving. Patient's daughter was instructed to increase water intake. She will follow up in the office as instructed upon discharge. Physical Exam Vital Signs: Temp Pulse Resp BP Pulse Ox 97.4 F 62 15 93/34 L 100 02/01/19 11:00 02/01/19 11:00 02/01/19 11:00 02/01/19 11:00 02/01/19 11:00 Intake & Output 01/31/19 02/01/19 02/02/19 06:59 06:59 06:59 Intake Total 1009 2650 Balance 1009 2650 Weight 48.2 kg 56.6 kg Physical Exam: General appearance: PRESENT: no acute distress Head exam: PRESENT: atraumatic, normocephalic Eye exam: PRESENT: conjunctiva pink. ABSENT: pallor, scleral icterus Ear exam: PRESENT: normal external ear exam Mouth exam: PRESENT: moist Respiratory exam: PRESENT: clear to auscultation constantin, decreased breath sounds - at lung bases Cardiovascular exam: PRESENT: RRR. ABSENT: diastolic murmur, rubs, systolic murmur GI/Abdominal exam: PRESENT: normal bowel sounds, soft. ABSENT: distended, guarding, mass, organomegaly, rebound, tenderness Extremities exam: ABSENT: pedal edema Neurological exam: PRESENT: alert, awake Psychiatric exam: PRESENT: appropriate affect, normal mood. ABSENT: homicidal ideation, suicidal ideation Skin exam: PRESENT: dry, warm Results Laboratory Results: 02/01/19 08:30 02/01/19 07:11 02/01/19 02/01/19 02/01/19 07:11 07:11 08:30 WBC Cancelled 5.6 RBC Cancelled 2.90 L Hgb Cancelled 9.0 L Hct Cancelled 26.3 L MCV Cancelled 91 MCH Cancelled 30.8 MCHC Cancelled 34.1 RDW Cancelled 13.5 Plt Count Cancelled 147 L Seg Neutrophils % Cancelled 41.4 L Lymphocytes % Cancelled 41.5 Monocytes % Cancelled 9.0 Eosinophils % Cancelled 7.1 H Basophils % Cancelled 1.0 Absolute Neutrophils Cancelled 2.3 Absolute Lymphocytes Cancelled 2.3 Absolute Monocytes Cancelled 0.5 Absolute Eosinophils Cancelled 0.4 Absolute Basophils Cancelled 0.1 Sodium 137.3 Potassium 3.6 Chloride 113 H Carbon Dioxide 20 L Anion Gap 4 L BUN 16 Creatinine 1.27 H Est GFR ( Amer) 49 L Est GFR (Non-Af Amer) 40 L Glucose 74 L Calcium 8.6 Phosphorus 2.8 Magnesium 1.6 01/30/19 14:08 Catheterized Urine Urine Culture - Final Klebsiella Pneumoniae 01/30/19 01/30/19 13:53 13:53 Creatine Kinase 80 CK-MB (CK-2) 0.69 Troponin I < 0.012 Impressions: Chest X-Ray 01/30/19 15:39 IMPRESSION: NO ACUTE RADIOGRAPHIC FINDING IN THE CHEST. Qualifiers - * PATIENT BEING DISCHARGED WITH ANY OF THE FOLLOWING DIAGNOSIS: No Plan Discharge Plan: Discharge home today with DAY TREATMENT CLINICIAN/ART THERAPIST services. She will follow up in the office as instructed upon discharge.
[2019-02-01 16:10] VITALS: BP 111/43
[2019-02-01] MEDS: LEVOFLOXACIN 250 MG/D5W RTU 250 MG/50 ML RTUPB IV SCH (17:15)
== END 2019-02-01 18:30 | disposition home health service (06) ==
LOC: ER 11:47 → EH 17:30 → 4N 21:15
PROVIDERS: ADMIT Internal Medicine Geriatric Medicine; ATTEND Internal Medicine Geriatric Medicine
DX: R55 Syncope and collapse (principal); N30.90 Cystitis, unspecified without hematuria; B96.1 Klebsiella pneumoniae [K. pneumoniae] as the cause of diseases classified elsewhere; N17.9 Acute kidney failure, unspecified; E11.9 Type 2 diabetes mellitus without complications; I10 Essential (primary) hypertension; G30.1 Alzheimer's disease with late onset; F02.80 Dementia in other diseases classified elsewhere, unspecified severity, without behavioral disturbance, psychotic disturbance, mood disturbance, and anxiety; F32.9 Major depressive disorder, single episode, unspecified; R32 Unspecified urinary incontinence; G25.89 Other specified extrapyramidal and movement disorders; I25.10 Atherosclerotic heart disease of native coronary artery without angina pectoris; M13.89 Other specified arthritis, multiple sites; I25.2 Old myocardial infarction; Z79.84 Long term (current) use of oral hypoglycemic drugs; Z79.02 Long term (current) use of antithrombotics/antiplatelets; Z86.69 Personal history of other diseases of the nervous system and sense organs; Z95.5 Presence of coronary angioplasty implant and graft; Z82.49 Family history of ischemic heart disease and other diseases of the circulatory system; Z87.442 Personal history of urinary calculi; Z96.641 Presence of right artificial hip joint
CPT/HCPCS: 93005; 99285; 96365; 36415 ×3; 87040; 87086; 82553; 82962 ×2; 82550; 83735; 84100; 85025 ×3; 87088; 80048 ×2; 80053; 81001; 84484; 87186; 71045; 93010; G0378 ×3; A9270 ×4; J3490 ×5; J1650 ×2; J7030 ×3; J1956 ×2

== ENCOUNTER 2019-11-28 17:49 | Inpatient (IN) | payer MEDICARE, MEDICAID ==
--- NOTE | 2019-11-28 18:06 | ER Document Report ---
ED Medical Screen (RME) - General Chief Complaint: Trouble Talking Stated Complaint: SPEECH IMPAIRED Time Seen by Provider: 11/28/19 17:57 Primary Care Provider: TRIXIE FELDMAN MD [Primary Care Provider] - Follow up as needed TRAVEL OUTSIDE OF THE [place] IN LAST 30 DAYS: No - HPI Notes: 11/28/19 18:13 78-year-old female to the emergency department with complaints of altered mental status. She is here with her granddaughter who states that her last known normal was last night at approximately 8 PM. Patient lives by herself and does have some baseline dementia but usually is very interactive with family members. Granddaughter states that this morning about 8/9 a.m. she went to go see her grandmother and found her moaning. She states grandmother would not talk to her about what was going on at all. She states that she gave her a bath and fed her breakfast and then left for little while but when she returned at lunchtime the patient was continuing to act the same. She states that she began to start to feel concerned this evening about the patient and decided to bring the patient in. She states that the patient was able to walk to her car and get in. Zacharye r the patient has not been able to talk to her or really engage with granddaughter. Patient does have a history of diabetes. Granddaughter is not really certain of any other medical problems. On my brief medical screening exam, the patient is moaning. She seems to understand me when I am asking her questions but she is not able to perform most commands that I ask of her. She cannot tell me if she can feel me touching her face. She will not stick out her tongue when I asked her to. She will hold her arms up for me. She will not really squeeze my hands. She will hold her legs up for me if I position them up but she will not perform [id number] or [id number]. She is certainly altered but I cannot find a focal neurological deficit on my exam such as facial droop or 1 extremity being weak compared to another. I have gone ahead and ordered a head CT as well as labs and EKG on the patient. I notified Dr. willard, my ER attending about the patient and he is aware and will take over her care. He agrees with the plan laid out. - Related Data Allergies/Adverse Reactions: Penicillins Allergy (Mild, Verified 04/17/17 07:32) prednisone Allergy (Mild, Verified 04/17/17 07:32) Past Medical History - Past Medical History Cardiac Medical History: Reports: Hx Congestive Heart Failure, Hx Coronary Artery Disease, Hx Heart Attack - JANUARY 2013, Hx Hypercholesterolemia, Hx Hypertension Pulmonary Medical History: Reports: Hx Asthma Denies: Hx Tuberculosis Neurological Medical History: Reports: Hx Seizures - 2016. Denies: Hx Cerebrovascular Accident Endocrine Medical History: Reports: Hx Diabetes Mellitus Type 2 Renal/ Medical History: Reports: Hx Kidney Stones. Denies: Hx Peritoneal Dialysis GI Medical History: Denies: Hx Hepatitis, Hx Hiatal Hernia, Hx Ulcer Musculoskeltal Medical History: Reports Hx Arthritis Psychiatric Medical History: Reports: Hx Dementia, Hx Depression Infectious Medical History: Denies: Hx Hepatitis Past Surgical History: Reports: Hx Cardiac Catheterization, Hx Coronary Stent - 2002, 2012, Hx Orthopedic Surgery - TOTAL RIGHT HIP. Denies: Hx Appendectomy, Hx Bowel Surgery, Hx Section, Hx Cholecystectomy, Hx Coronary Artery Bypass Graft, Hx Gastric Bypass Surgery, Hx Herniorrhaphy, Hx Hysterectomy, Hx Mastectomy, Hx Open Heart Surgery, Hx Pacemaker, Hx Tonsillectomy, Hx Tubal Ligation - Immunizations Hx Diphtheria, Pertussis, Tetanus Vaccination: Yes Doctor's Discharge - Discharge Referrals: TRIXIE FELDMAN MD [Primary Care Provider] - Follow up as needed
--- NOTE | 2019-11-28 18:22 | RADIOLOGY REPORT (SQ) ---
EXAM DESCRIPTION: CT HEAD WITHOUT COMPLETED DATE/TIME: 11/28/2019 6:09 pm REASON FOR STUDY: AMS COMPARISON: CT head 11/08/2015 TECHNIQUE: Axial images acquired through the brain without intravenous contrast. Images reviewed wi th bone, brain and subdural windows. Additional sagittal and coronal reconstructions were generated. Images stored on PACS. All CT scanners at this facility use dose modulation, iterative reconstruction, and/or weight based d osing when appropriate to reduce radiation dose to as low as reasonably achievable (ALARA). [facility]: Dose Right [facility]: CareDose [facility]: Dose Right [facility]: Teradose 4D [facility]: Smart [employer] RADIATION DOSE: CT Rad equipment meets quality standard of care and radiation dose reduction techniq ues were employed. CTDIvol: 53.2 mGy. DLP: 884 mGy-cm. mGy. LIMITATIONS: None. FINDINGS: VENTRICLES: Mild ventricular and sulcal prominence related to age related involutional atr ophy. CEREBRUM: No masses. No hemorrhage. No midline shift. No evidence for acute infarction. Unchanged encephalomalacia within the bilateral occipital lobes. Mild hypoattenuating foci within the perivent ricular white matter compatible with chronic small vessel ischemic changes. Empty sella. CEREBELLUM: No masses. No hemorrhage. No alteration of density. No evidence for acute infarction. EXTRAAXIAL SPACES: No fluid collections. No masses. ORBITS AND GLOBE: No intra- or extraconal masses. Bilateral cataract surgery. CALVARIUM: No fracture. PARANASAL SINUSES: No fluid or mucosal thickening. SOFT TISSUES: No mass or hematoma. OTHER: No other significant finding. IMPRESSION: No acute intracranial findings. 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 Similar age rel ated involutional and chronic small vessel ischemic changes. EVIDENCE OF ACUTE STROKE: NO. COMMENT: Quality ID # [id number]: Final reports with documentation of one or more dose reduction techniques (e.g., Automated exposure control, adjustment of the mA and/or kV according to patient size, use of iterative reconstruction technique) TECHNICAL DOCUMENTATION: JOB ID: [id number]- All Rights Reserved Reading location - IP/workstation name: [email or web address]
--- NOTE | 2019-11-28 18:23 | RADIOLOGY REPORT (SQ) ---
EXAM DESCRIPTION: CHEST SINGLE VIEW COMPLETED DATE/TIME: 11/28/2019 6:08 pm REASON FOR STUDY: AMS COMPARISON: Chest radiographs 01/30/2019 EXAM PARAMETERS: NUMBER OF VIEWS: One view. TECHNIQUE: Single frontal radiographic view of the chest acquired. RADIATION DOSE: NA LIMITATIONS: None. FINDINGS: LUNGS AND PLEURA: No opacities, masses or pneumothorax. No pleural effusion. MEDIASTINUM AND HILAR STRUCTURES: Unchanged. HEART AND VASCULAR STRUCTURES: Heart normal in size. Normal vasculature. BONES: No acute findings. HARDWARE: None in the chest. OTHER: No other significant finding. IMPRESSION: No acute pulmonary findings. TECHNICAL DOCUMENTATION: JOB ID: [id number] [employer]- All Rights Reserved Reading location - IP/workstation name: [email or web address]
--- NOTE | 2019-11-28 18:50 | ER Document Report ---
ED General - General Chief Complaint: Trouble Talking Stated Complaint: SPEECH IMPAIRED Time Seen by Provider: 11/28/19 17:57 Mode of Arrival: Stretcher Information source: Relative - daughter TRAVEL OUTSIDE OF THE [place] IN LAST 30 DAYS: No - HPI Onset: Other - last evening last known normal Quality of pain: Other - moaning Severity: Moderate Pain Level: 2 - Related Data Allergies/Adverse Reactions: Penicillins Allergy (Mild, Verified 04/17/17 07:32) prednisone Allergy (Mild, Verified 04/17/17 07:32) Past Medical History - General Information source: Relative - Social History Smoking Status: Unknown if Ever Smoked Cigarette use (# per day): No Chew tobacco use (# tins/day): No Smoking Education Provided: No Frequency of alcohol use: None Drug Abuse: None Lives with: Family Family History: Hypertension Patient has suicidal ideation: No Patient has homicidal ideation: No - Past Medical History Cardiac Medical History: Reports: Hx Congestive Heart Failure, Hx Coronary Artery Disease, Hx Heart Attack - JANUARY 2013, Hx Hypercholesterolemia, Hx Hypertension Pulmonary Medical History: Reports: Hx Asthma Denies: Hx Tuberculosis Neurological Medical History: Reports: Hx Seizures - 2016. Denies: Hx Cerebr ovascular Accident Endocrine Medical History: Reports: Hx Diabetes Mellitus Type 2 Renal/ Medical History: Reports: Hx Kidney Stones. Denies: Hx Peritoneal Dialysis GI Medical History: Denies: Hx Hepatitis, Hx Hiatal Hernia, Hx Ulcer Musculoskeletal Medical History: Reports Hx Arthritis Psychiatric Medical History: Reports: Hx Dementia, Hx Depression Infectious Medical History: Denies: Hx Hepatitis Past Surgical History: Reports: Hx Cardiac Catheterization, Hx Coronary Stent - 2012, Hx Orthopedic Surgery - TOTAL RIGHT HIP. Denies: Hx Appendectomy, Hx Bowel Surgery, Hx Section, Hx Cholecystectomy, Hx Coronary Artery Bypass Graft, Hx Gastric Bypass Surgery, Hx Herniorrhaphy, Hx Hysterectomy, Hx Mastectomy, Hx Open Heart Surgery, Hx Pacemaker, Hx Tonsillectomy, Hx Tubal Ligation - Immunizations Hx Diphtheria, Pertussis, Tetanus Vaccination: Yes Hx Pneumococcal Vaccination: 07/04/11 Physical Exam - Vital signs Vitals: Pulse Ox 100 11/28/19 18:11 Interpretation: Hypertensive - General General appearance: Alert In distress: None - HEENT Head: Normocephalic Eyes: Pale conjunctiva Cornea: Normal Extraocular movements intact: Yes Eyelashes: Normal Pupils: PERRL Nasal: Normal Mouth/Lips: Normal Mucous membranes: Dry - Respiratory Respiratory status: No respiratory distress Chest status: Nontender Breath sounds: Normal Chest palpation: Normal - Cardiovascular Rhythm: Regular Heart sounds: Normal auscultation Murmur: No Friction rub: No Sherice's crunch: No - Abdominal Inspection: Normal Distension: No distension Bowel sounds: Normal Tenderness: Nontender - Genitourinary External exam: Normal - Back Back: Nontender - Extremities General upper extremity: Normal inspection General lower extremity: Normal inspection - Neurological Cognition: Other - Patient appears to follow with her eyes and appears to understand my conversation. She sits up on my command in order for me to auscultate her back and lifts up her legs on command and is able to dorsi flex on command. She is unable to speak her name or names of her daughter or granddaughter. [place] Coma Scale Motor: Obeys Commands Speech: Expressive aphasia Cranial nerves: Normal Course - Vital Signs Vital signs: Temp Pulse Resp BP Pulse Ox 98.0 F 66 20 158/50 H 100 12/02/19 07:22 12/02/19 07:22 12/02/19 07:22 12/02/19 07:22 12/02/19 07:22 - Laboratory Result Diagrams: 12/01/19 04:19 12/01/19 04:19 Laboratory results interpreted by me: 11/28/19 11/28/19 11/28/19 18:13 18:41 19:02 RBC 3.51 L Hgb 10.8 L Hct 32.0 L RDW 14.1 H Eos % (Auto) 6.1 H BUN Creatinine Est GFR ( Amer) Est GFR (MDRD) Non-Af POC Glucose 132 H Urine Protein 30 H Urine Blood LARGE H Urine Nitrite (Reflex) POSITIVE H Leukocyte Esterase Rfl MODERATE H Urine Ascorbic Acid 40 H 11/28/19 20:20 RBC Hgb Hct RDW Eos % (Auto) BUN 27 H Creatinine 1.33 H Est GFR ( Amer) 46 L Est GFR (MDRD) Non-Af 38 L POC Glucose Urine Protein Urine Blood Urine Nitrite (Reflex) Leukocyte Esterase Rfl Urine Ascorbic Acid Critical Care Note - Critical Care Note Total time excluding time spent on procedures (mins): 90 Comments: I discussed this case with Dr. Hicks he advised medicine floor for admission I also discussed this case with her daughter and she agrees with admission. Discharge - Discharge Clinical Impression: Change in mental status Qualifiers: Altered mental status type: unspecified Qualified Code(s): R41.82 - Altered mental status, unspecified UTI (urinary tract infection) Qualifiers: Urinary tract infection type: site unspecified Hematuria presence: without hematuria Qualified Code(s): N39.0 - Urinary tract infection, site not specified Condition: Fair Disposition: ADMITTED INPATIENT Admitting Provider: Fabiola Unit Admitted: Medical Floor
[2019-11-28 19:00] LABS: ABSOLUTE EOSINOPHILS # (AUTO) 0.4 10^3/uL (0.0-0.6); ABSOLUTE LYMPHOCYTES (AUTO) 2.4 10^3/uL (0.5-4.7); ABSOLUTE MONOCYTES (AUTO) 0.5 10^3/uL (0.1-1.4); ABSOLUTE NEUT (AUTO) 3.2 10^3/uL (1.7-8.2); BASOPHILS % (AUTO) 0.7 % (0-2); EOSINOPHILS % (AUTO) 6.1 % (0-6); HEMOGLOBIN 10.8 g/dL (12.0-15.5); LYMPHOCYTES % (AUTO) 36.8 % (13-45); MEAN CORPUSCULAR HEMOGLOBIN 30.6 pg (27.0-33.4); MEAN CORPUSCULAR HGB CONC 33.6 g/dL (32.0-36.0); MEAN CORPUSCULAR VOLUME 91 fl (80-97); MONOCYTES % (AUTO) 8.1 % (3-13); PLATELET COUNT 185 10^3/uL (150-450); RED BLOOD COUNT 3.51 10^6/uL (3.72-5.28); RED CELL DISTRIBUTION WIDTH 14.1 % (11.5-14.0); SEGMENTED NEUTROPHILS % (AUTO) 48.3 % (42-78); TOTAL CELLS COUNTED % (AUTO) 100 %; WHITE BLOOD COUNT 6.6 10^3/uL (4.0-10.5)
[2019-11-28 19:13] LABS: INTERNATIONAL RATION (INR) 1.13; PROTHROMBIN TIME 14.6 SEC (11.4-15.4)
[2019-11-28 19:14] LABS: PARTIAL THROMBOPLASTIN TIME 31.5 SEC (23.5-35.8)
[2019-11-28] MEDS ORDERED: DIPHENHYDRAMINE HCL 50 MG/ML VIAL IV ONE (19:25)
[2019-11-28 19:57] LABS: APPEARANCE,URINE SLIGHTLY-CLOUDY; BILIRUBIN,URINE NEGATIVE (NEGATIVE); COLOR,URINE YELLOW; GLUCOSE, URINE NEGATIVE (NEGATIVE); KETONES,URINE NEGATIVE (NEGATIVE); PROTEIN,URINE 30 mg/dL (NEGATIVE); URINE SPECIFIC GRAVITY 1.016; UROBILINOGEN,URINE NEGATIVE mg/dL (<2.0)
[2019-11-28 20:55] LABS: ALKALINE PHOSPHATASE 57 U/L (38-126); ANION GAP 8 (5-19); ASPARTATE AMINO TRANSFERASE 28 U/L (14-36); BILIRUBIN,TOTAL 0.4 mg/dL (0.2-1.3); BLOOD UREA NITROGEN 27 mg/dL (7-20); CALCIUM 9.9 mg/dL (8.4-10.2); CARBON DIOXIDE 28 mmol/L (22-30); CHLORIDE 102 mmol/L (98-107); GLUCOSE 95 mg/dL (75-110); POTASSIUM 4.7 mmol/L (3.6-5.0); TOTAL PROTEIN 7.7 g/dL (6.3-8.2)
[2019-11-28] MEDS ORDERED: LEVOFLOXACIN 750 MG/D5W RTU 750 MG/150 ML RTUPB IV ONE (21:00)
--- NOTE | 2019-11-28 22:03 | EKG REPORT ---
SEVERITY:- ABNORMAL ECG - SINUS RHYTHM FIRST DEGREE AV BLOCK BORDERLINE R WAVE PROGRESSION, ANTERIOR LEADS REPOL ABNRM SUGGESTS ISCHEMIA, ANT-LAT LEADS : Confirmed by: Bartolome Fox MD 28-Nov-2019 22:02:39
[2019-11-28] MEDS ORDERED: DEXTROSE 50%-WATER SYRINGE 12.5 GM/25 ML DOSE IV PRN (23:30)
[2019-11-28] MEDS ORDERED: DEXTROSE 50%-WATER SYRINGE 25 GM/50 ML DOSE IV PRN (23:30)
[2019-11-28] MEDS ORDERED: DEXTROSE 40% GEL 15 GM TUBE PO PRN (23:30)
[2019-11-28] MEDS ORDERED: GLUCAGON,HUMAN RECOMB 1 MG INJ IM PRN (23:30)
[2019-11-28] MEDS ORDERED: DEXTROSE 40% GEL 15 GM TUBE X 2 PO PRN (23:30)
[2019-11-29] MEDS ORDERED: INFLUENZA QUAD (6MOS+) 2019-20 VAC 0.5 ML SYR IM ONE (04:24)
[2019-11-29] MEDS: INSULIN REG, HUMAN 100 UNIT/ML 3 ML VIAL (PYX) SUBCUT SCH ×4 (09:50→21:54)
[2019-11-29] MEDS: PANTOPRAZOLE SODIUM 40 MG TABLET.DR PO SCH (10:37)
[2019-11-29] MEDS: ENOXAPARIN SODIUM INJ 30 MG/0.3 ML DISP.SYRIN SUBCUT SCH (10:37)
--- NOTE | 2019-11-29 18:55 | PDOC H&P ---
History of Present Illness Admission Date/PCP: 11/28/19 20:56 TRIXIEZIGGY FELDMAN Patient complains of: Change in mental status History of Present Illness: JOHNATHAN FUNK is a 78 year old female patient known to my practice who presented to the Ed with grand daughter complaining about change in mental state and not verbally responsive. There was concern for possible pain due to her persistent mourning as per daughter assessment. No reported fever or difficulty with breathing. she denied any odor to her urine. No associated coughing or vomiting. No diarrhea or constipation. Her initial ED evaluation revealed renal impairment and abnormal urinalysis. Her head CT scan was devoid of any acute pathologic process but revealed chronic bilateral occipital lobe infarcts, involution and chronic small vessel ischemic changes. she was advised hospitalization for UTI with toxic encephalopathy. Her morbidities are listed below. Past Medical History Cardiac Medical History: Reports: Congestive Heart Failure, Coronary Artery Disease, Myocardial Infarction - JANUARY 2013, Hyperlipidema, Hypertension Pulmonary Medical History: Reports: Asthma Denies: Tuberculosis Neurological Medical History: Reports: Seizures - 2015 Endocrine Medical History: Reports: Diabetes Mellitus Type 2 GI Medical History: Denies: Hepatitis, Hiatal Hernia Musculoskeltal Medical History: Reports: Arthritis Psychiatric Medical History: Reports: Dementia, Depression Hematology: Reports: Anemia Denies: Sickle Cell Disease Past Surgical History Past Surgical History: Reports: Cardiac Catheterization, Coronary Stent - 2002, 2012, Orthopedic Surgery - TOTAL RIGHT HIP Denies: Amputation, Appendectomy, Section, Cholecystectomy, Coronary Artery Bypass Graft, Gastric Bypass Surgery, Herniorrhaphy, Hysterectomy, Mastectomy, Pacemaker, Tonsillectomy, Tubal Ligation Social History Smoking Status: Never Smoker Electronic Cigarette use?: No Frequency of Alcohol Use: None Hx Recreational Drug Use: No Drugs: None Hx Prescription Drug Abuse: No - Advance Directive Resuscitation Status: Do Not Resuscitate Family History Family History: Hypertension Parental Family History Reviewed: Yes Children Family History Reviewed: Yes Sibling(s) Family History Reviewed.: Yes Medication/Allergy Home Medications: Bimatoprost [Lumigan 0.01% Oph Soln 2.5 ml/Bottle] 1 drop OU QHS 11/29/19 Brimonidine Tartrate/Timolol [Combigan 0.2%-0.5% Eye Drops] 1 drop OU BID 11/29/19 Haloperidol [Haldol 0.5 mg Tablet] 0.5 mg PO BID 11/29/19 Irbesartan [Avapro] 300 mg PO DAILY 11/29/19 Metoprolol Tartrate [Lopressor 25 mg Tablet] 25 mg PO Q12 11/29/19 Rivastigmine [Exelon 4.6 Mg/24 Hr Transdermal Patch] 1 each TD NOON 11/29/19 Sitagliptin Phosphate [Januvia 50 mg Tablet] 50 mg PO DAILY 11/29/19 Allergies/Adverse Reactions: Penicillins Allergy (Mild, Verified 04/17/17 07:32) prednisone Allergy (Mild, Verified 04/17/17 07:32) Review of Systems ROS unobtainable: Due to mental status Physical Exam Vital Signs: Temp Pulse Resp BP Pulse Ox 98.5 F 62 18 160/55 H 99 11/28/19 22:39 11/28/19 22:39 11/28/19 22:39 11/28/19 22:39 11/28/19 22:39 Intake & Output 11/28/19 11/29/19 11/30/19 06:59 06:59 06:59 Intake Total 150 Balance 150 Weight 41.4 kg Head exam: PRESENT: atraumatic, normocephalic Eye exam: PRESENT: conjunctiva pink, EOMI, PERRLA. ABSENT: scleral icterus Ear exam: PRESENT: normal external ear exam Mouth exam: PRESENT: dry mucosa Respiratory exam: PRESENT: decreased breath sounds - at lung bases Cardiovascular exam: PRESENT: RRR. ABSENT: diastolic murmur, rubs, systolic murmur Murmur grade: 3 Vascular exam: ABSENT: pallor GI/Abdominal exam: PRESENT: normal bowel sounds, soft. ABSENT: mass, tenderness Rectal exam: PRESENT: deferred Extremities exam: ABSENT: pedal edema Neurological exam: PRESENT: altered Psychiatric exam: ABSENT: homicidal ideation, suicidal ideation Skin exam: PRESENT: dry, warm Results Laboratory Results: 11/28/19 18:41 11/28/19 20:20 11/28/19 11/28/19 11/28/19 18:41 18:41 19:02 WBC 6.6 RBC 3.51 L Hgb 10.8 L Hct 32.0 L MCV 91 MCH 30.6 MCHC 33.6 RDW 14.1 H Plt Count 185 Seg Neutrophils % 48.3 Sodium Cancelled Potassium Cancelled Chloride Cancelled Carbon Dioxide Cancelled Anion Gap Cancelled BUN Cancelled Creatinine Cancelled Est GFR ( Amer) Cancelled Est GFR (Non-Af Amer) Cancelled Glucose Cancelled Lactic Acid Calcium Cancelled Magnesium Cancelled Total Bilirubin Cancelled AST Cancelled Alkaline Phosphatase Cancelled Total Protein Cancelled Albumin Cancelled Urine Color YELLOW Urine Appearance SLIGHTLY-CLOUDY Urine pH 5.0 Ur Specific [place] 1.016 Urine Protein 30 H Urine Glucose (UA) NEGATIVE Urine Ketones NEGATIVE Urine Blood LARGE H Urine RBC (Auto) 16 11/28/19 11/28/19 19:57 20:20 WBC RBC Hgb Hct MCV MCH MCHC RDW Plt Count Seg Neutrophils % Sodium 138.0 Potassium 4.7 Chloride 102 Carbon Dioxide 28 Anion Gap 8 BUN 27 H Creatinine 1.33 H Est GFR ( Amer) 46 L Est GFR (Non-Af Amer) Glucose 95 Lactic Acid 1.2 Calcium 9.9 Magnesium 2.0 Total Bilirubin 0.4 AST 28 Alkaline Phosphatase 57 Total Protein 7.7 Albumin 4.0 Urine Color Urine Appearance Urine pH Ur Specific [place] Urine Protein Urine Glucose (UA) Urine Ketones Urine Blood Urine RBC (Auto) 11/28/19 11/28/19 18:41 20:20 Troponin I Cancelled < 0.012 Impressions: Chest X-Ray 11/28/19 17:57 IMPRESSION: No acute pulmonary findings. Head CT 11/28/19 17:57 IMPRESSION: No acute intracranial findings. 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 Similar age related involutional and chronic small vessel ischemic changes. EVIDENCE OF ACUTE STROKE: NO. Assessment & Plan - Diagnosis (1) UTI (urinary tract infection) Qualifiers: Urinary tract infection type: acute cystitis Hematuria presence: with sharri turia Qualified Code(s): N30.01 - Acute cystitis with hematuria Is this a current diagnosis for this admission?: Yes Plan: See admitting attending physician orders for details about care plan. (2) Toxic metabolic encephalopathy Is this a current diagnosis for this admission?: Yes Plan: See admitting attending physician orders for details about care plan. (3) Diabetes mellitus type 2 in nonobese Is this a current diagnosis for this admission?: Yes Plan: See admitting attending physician orders for details about care plan. (4) HTN (hypertension) Qualifiers: Hypertension type: essential hypertension Qualified Code(s): I10 - Essential (primary) hypertension Is this a current diagnosis for this admission?: Yes Plan: See admitting attending physician orders for details about care plan. (5) CAD (coronary artery disease), [place] coronary artery Qualifiers: [place] vs. transplanted heart: [place] heart Associated angina: without angina Qualified Code(s): I25.10 - Atherosclerotic heart disease of [place] coronary artery without angina pectoris Is this a current diagnosis for this admission?: Yes Plan: See admitting attending physician orders for details about care plan. (6) Anemia of chronic disease Is this a current diagnosis for this admission?: Yes Plan: See admitting attending physician orders for details about care plan. 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 - Time Time Spent: 50 to 70 Minutes Medications reviewed and adjusted accordingly: Yes Anticipated discharge: Home with Homehealth, SNF Within: Other - Inpatient Certification Based on my medical assessment, after consideration of the patient's comorbidities, presenting symptoms, or acuity I expect that the services needed warrant INPATIENT care.: Yes I certify that my determination is in accordance with my understanding of Medicare's requirements for reasonable and necessary INPATIENT services [42 CFR 412.3e].: Yes Medical Necessity: Significant Comorbidiites Make Outpatient Treatment Too Risky, Need Close Monitoring Due to Risk of Patient Decompensation, Need For IV Fluids, Need For Continuous Telemetry Monitoring, Need for IV Antibiotics, Risk of Complication if Not Cared For in Hospital, Risk of Diagnosis Which Will Requi re Inpatient Eval/Care/Monitoring 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
--- NOTE | 2019-11-29 19:00 | ADVANCED CARE ---
Attendance: Daughter, Lindsey Gabriel Resuscitation Status: Do Not Resuscitate Discussion: Patient will remain on DNR status. Care Planning Goals: Discharge home when medically cleared. Remain on DNR status during admission in the hospital. Document(s) Completed: Patient overall prognosis remain guarded. Daughter agreed to DNR status and placement of central line or PICC line if necessary. Time Spent: 15 minutes.
[2019-11-29] MEDS: LEVOFLOXACIN 750 MG/D5W RTU 750 MG/150 ML RTUPB IV SCH (21:59)
[2019-11-29] MEDS ORDERED: (PENDING PHARMACY ID) (Bimatoprost [Lumigan 0.01% Oph Soln 2.5 Ml/Bottle] 1 DROP) OU SCH (22:00)
[2019-11-29] MEDS: TIMOLOL MALEATE 0.5% OPH SOLN 5 ML OU SCH (22:00)
[2019-11-29] MEDS: LATANOPROST 0.005% OPH SOLN 2.5 ML OU SCH (22:00)
[2019-11-29] MEDS: BRIMONIDINE TARTRATE 0.2% OPH SOLN 5 ML OU SCH (22:00)
[2019-11-30] MEDS: PANTOPRAZOLE SODIUM 40 MG TABLET.DR PO SCH (05:23)
[2019-11-30] MEDS: NORMAL SALINE 1000 ML 1,000 ML IV PRN ×2 (05:23→20:30)
[2019-11-30] MEDS: INSULIN REG, HUMAN 100 UNIT/ML 3 ML VIAL (PYX) SUBCUT SCH ×4 (08:21→21:13)
[2019-11-30] MEDS: ENOXAPARIN SODIUM INJ 30 MG/0.3 ML DISP.SYRIN SUBCUT SCH (09:25)
[2019-11-30] MEDS: BRIMONIDINE TARTRATE 0.2% OPH SOLN 5 ML OU SCH ×2 (09:26→21:19)
[2019-11-30] MEDS: TIMOLOL MALEATE 0.5% OPH SOLN 5 ML OU SCH ×2 (09:26→21:20)
--- NOTE | 2019-11-30 18:17 | PDOC PROGRESS REPORT ---
Subjective Progress Note for:: 11/30/19 Subjective:: Patient appeared more comfortable during this bedside visit. Not verbally communicative. Nursing staff reported adequate intake with breakfast and lunch. daughter at bedside assisting in feeding her at dinner time. No reported fever or chills. No difficulty with breathing. Reason For Visit: UTI, AMS Physical Exam Vital Signs: Temp Pulse Resp BP Pulse Ox 98.7 F 70 13 110/45 L 99 11/30/19 10:58 11/30/19 10:58 11/30/19 10:58 11/30/19 10:58 11/30/19 10:58 Intake & Output 11/29/19 11/30/19 12/01/19 06:59 06:59 06:59 Intake Total 150 770 120 Balance 150 770 120 Weight 41.4 kg 49.4 kg General appearance: PRESENT: no acute distress Head exam: PRESENT: atraumatic, normocephalic Eye exam: PRESENT: conjunctiva pink. ABSENT: scleral icterus Ear exam: PRESENT: normal external ear exam Mouth exam: PRESENT: moist Respiratory exam: PRESENT: clear to auscultation constantin, decreased breath sounds - at lung bases Cardiovascular exam: PRESENT: RRR, +S1, +S2, systolic murmur. ABSENT: diastolic murmur, rubs Murmur grade: 3 Vascular exam: ABSENT: pallor GI/Abdominal exam: PRESENT: normal bowel sounds, soft. ABSENT: distended, guarding, mass, organolmegaly, rebound, tenderness Extremities exam: ABSENT: pedal edema Neurological exam: PRESENT: alert, awake Psychiatric exam: PRESENT: depressed. ABSENT: homicidal ideation, suicidal ideation Skin exam: PRESENT: dry, warm Results Laboratory Results: 11/28/19 18:41 11/28/19 20:20 11/28/19 19:02 Catheterized Urine Urine Culture - Final Escherichia Coli 11/28/19 11/28/19 18:41 20:20 Troponin I Cancelled < 0.012 Impressions: Chest X-Ray 11/28/19 17:57 IMPRESSION: No acute pulmonary findings. Head CT 11/28/19 17:57 IMPRESSION: No acute intracranial findings. Old bilateral occipital lobe inf arcts. Similar age related involutional and chronic small vessel ischemic changes. EVIDENCE OF ACUTE STROKE: NO. Assessment & Plan - Diagnosis (1) E. coli UTI (urinary tract infection) Is this a current diagnosis for this admission?: Yes Plan: Continue IV Levofloxacin coverage. (2) Toxic metabolic encephalopathy Is this a current diagnosis for this admission?: Yes Plan: Start ion IV thiamine/MVI/K/Mag adjusted dose supplementation. Add Beneprotein 2 packets to each meal. (3) Diabetes mellitus type 2 in nonobese Is this a current diagnosis for this admission?: Yes (4) HTN (hypertension) Qualifiers: Hypertension type: essential hypertension Qualified Code(s): I10 - Essential (primary) hypertension Is this a current diagnosis for this admission?: Yes (5) CAD (coronary artery disease), [place] coronary artery Qualifiers: [place] vs. 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: Yes Medical Necessity: Significant Comorbidiites Make Outpatient Treatment Too Risky, Need Close Monitoring Due to Risk of Patient Decompensation, Need For IV Fluids, Need For Continuous Telemetry Monitoring, Need for IV Antibiotics, Risk of Complication if Not Cared For in Hospital, Risk of Diagnosis Which Will Require Inpatient Eval/Care/Monitoring Post Hospital Care: D/C [employer] Studies Professor Documentation, D/C or Transfer Summary - Plan Summary Plan Summary: See attending physician orders for details about care plan. I did discuss her overall prognosis with daughter at bedside and patient will remain on DNR status.
[2019-11-30] MEDS: LEVOFLOXACIN 750 MG/D5W RTU 750 MG/150 ML RTUPB IV SCH (21:20)
[2019-11-30] MEDS: LATANOPROST 0.005% OPH SOLN 2.5 ML OU SCH (21:20)
[2019-11-30] MEDS: [UNRECOGNIZED DRUG - OTHER] IV SCH ×5 (22:45)
[2019-11-30] MEDS: NORMAL SALINE IV SCH ×5 (22:45)
[2019-11-30] MEDS: MAGNESIUM SULFATE IV SCH ×5 (22:45)
[2019-11-30] MEDS: POTASSIUM CHLORIDE IV SCH ×5 (22:45)
[2019-12-01 05:07] LABS: ABSOLUTE EOSINOPHILS # (AUTO) 0.3 10^3/uL (0.0-0.6); ABSOLUTE LYMPHOCYTES (AUTO) 2.2 10^3/uL (0.5-4.7); ABSOLUTE NEUT (AUTO) 3.8 10^3/uL (1.7-8.2); BASOPHILS % (AUTO) 0.5 % (0-2); EOSINOPHILS % (AUTO) 4.5 % (0-6); HEMATOCRIT 33.5 % (36.0-47.0); HEMOGLOBIN 11.3 g/dL (12.0-15.5); MEAN CORPUSCULAR HEMOGLOBIN 30.4 pg (27.0-33.4); MEAN CORPUSCULAR HGB CONC 33.9 g/dL (32.0-36.0); MEAN CORPUSCULAR VOLUME 90 fl (80-97); MONOCYTES % (AUTO) 13.5 % (3-13); PLATELET COUNT 120 10^3/uL (150-450); RED BLOOD COUNT 3.74 10^6/uL (3.72-5.28); RED CELL DISTRIBUTION WIDTH 13.7 % (11.5-14.0); SEGMENTED NEUTROPHILS % (AUTO) 51.5 % (42-78); TOTAL CELLS COUNTED % (AUTO) 100 %; WHITE BLOOD COUNT 7.4 10^3/uL (4.0-10.5)
[2019-12-01] MEDS: PANTOPRAZOLE SODIUM 40 MG TABLET.DR PO SCH (05:14)
[2019-12-01 05:27] LABS: ANION GAP 10 (5-19); BLOOD UREA NITROGEN 23 mg/dL (7-20); CALCIUM 8.5 mg/dL (8.4-10.2); CARBON DIOXIDE 21 mmol/L (22-30); CHLORIDE 102 mmol/L (98-107); GLUCOSE 82 mg/dL (75-110); POTASSIUM 4.4 mmol/L (3.6-5.0)
[2019-12-01] MEDS: INSULIN REG, HUMAN 100 UNIT/ML 3 ML VIAL (PYX) SUBCUT SCH ×4 (08:12→22:00)
[2019-12-01] MEDS: BRIMONIDINE TARTRATE 0.2% OPH SOLN 5 ML OU SCH ×2 (09:43→23:33)
[2019-12-01] MEDS: TIMOLOL MALEATE 0.5% OPH SOLN 5 ML OU SCH ×2 (09:44→23:33)
[2019-12-01] MEDS: ENOXAPARIN SODIUM INJ 30 MG/0.3 ML DISP.SYRIN SUBCUT SCH (09:47)
[2019-12-01] MEDS: MAGNESIUM SULFATE IV SCH ×5 (17:55)
[2019-12-01] MEDS: POTASSIUM CHLORIDE IV SCH ×5 (17:55)
[2019-12-01] MEDS: NORMAL SALINE IV SCH ×5 (17:55)
[2019-12-01] MEDS: [UNRECOGNIZED DRUG - OTHER] IV SCH ×5 (17:55)
--- NOTE | 2019-12-01 18:22 | PDOC PROGRESS REPORT ---
Subjective Progress Note for:: 12/01/19 Subjective:: Patient appeared more comfortable but remain nonverbal in communication. No reported fever or chills. No difficulty with breathing. Reason For Visit: UTI, AMS Physical Exam Vital Signs: Temp Pulse Resp BP Pulse Ox 97.8 F 74 19 151/59 H 98 12/01/19 07:31 12/01/19 07:31 12/01/19 07:31 12/01/19 07:31 12/01/19 07:31 Intake & Output 11/30/19 12/01/19 12/02/19 06:59 06:59 06:59 Intake Total 770 1390 1015.5 Balance 770 1390 1015.5 Weight 49.4 kg 48.1 kg Physical Exam: General appearance: PRESENT: no acute distress Head exam: PRESENT: atraumatic, normocephalic Eye exam: PRESENT: conjunctiva pink. ABSENT: pallor, scleral icterus Ear exam: PRESENT: normal external ear exam Mouth exam: PRESENT: moist Respiratory exam: PRESENT: clear to auscultation constantin, decreased breath sounds - at lung bases Cardiovascular exam: PRESENT: RRR, +S1, +S2, systolic murmur. ABSENT: diastolic murmur, rubs Murmur grade: 3 GI/Abdominal exam: PRESENT: normal bowel sounds, soft. ABSENT: distended, guarding, mass, organomegaly, rebound, tenderness Extremities exam: ABSENT: pedal edema Neurological exam: PRESENT: alert, awake Psychiatric exam: PRESENT: depressed. ABSENT: homicidal ideation, suicidal ideation Skin exam: PRESENT: dry, warm Murmur grade: 3 Results Laboratory Results: 12/01/19 04:19 12/01/19 04:19 12/01/19 12/01/19 04:19 04:19 WBC 7.4 RBC 3.74 Hgb 11.3 L Hct 33.5 L MCV 90 MCH 30.4 MCHC 33.9 RDW 13.7 Plt Count 120 L Seg Neutrophils % 51.5 Sodium 132.7 L Potassium 4.4 Chloride 102 Carbon Dioxide 21 L Anion Gap 10 BUN 23 H Creatinine 1.46 H Est GFR ( Amer) 42 L Glucose 82 Calcium 8.5 11/28/19 11/28/19 18:41 20:20 Troponin I Cancelled < 0.012 Impressions: Chest X-Ray 11/28/19 17:57 IMPRESSION: No acute pulmonary findings. Head CT 11/28/19 17:57 IMPRESSION: No acute intracranial findings. 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 Similar age related involutional and chronic small vessel ischemic changes. EVIDENCE OF ACUTE STROKE: NO. Assessment & Plan - Diagnosis (1) E. coli UTI (urinary tract infection) Is this a current diagnosis for this admission?: Yes (2) Toxic metabolic encephalopathy Is this a current diagnosis for this admission?: Yes (3) Diabetes mellitus type 2 in nonobese Is this a current diagnosis for this admission?: Yes (4) HTN (hypertension) Qualifiers: Hypertension type: essential hypertension Qualified Code(s): I10 - Essential (primary) hypertension Is this a current diagnosis for this admission?: Yes (5) CAD (coronary artery disease), [place] coronary artery Qualifiers: [place] vs. 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 Is this a current diagnosis for this admission?: Yes - Time Time Spent with patient: 25-34 minutes Level of Care: TELE Medications reviewed and adjusted accordingly: Yes Anticipated discharge: Home with Homehealth, SNF, Hospice Within: Other - Inpatient Certification Based on my medical assessment, after consideration of the patient's comorbidities, presenting symptoms, or acuity I expect that the services needed warrant INPATIENT care.: Yes I certify that my determination is in accordance with my understanding of Medicare's requirements for reasonable and necessary INPATIENT services [42 CFR 412.3e].: Yes Medical Necessity: Significant Comorbidiites Make Outpatient Treatment Too Risky, Need Close Monitoring Due to Risk of Patient Decompensation, Need For IV Fluids, Need For Continuous Telemetry Monitoring, Need for IV Antibiotics, Risk of Complication if Not Cared For in Hospital, Risk of Diagnosis Which Will Require Inpatient Eval/Care/Monitoring 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 Follow up on blood culture findings.
[2019-12-01] MEDS: LEVOFLOXACIN 750 MG/D5W RTU 750 MG/150 ML RTUPB IV SCH (23:32)
[2019-12-01] MEDS: LATANOPROST 0.005% OPH SOLN 2.5 ML OU SCH (23:33)
[2019-12-02] MEDS: NORMAL SALINE 1000 ML 1,000 ML IV PRN (06:23)
[2019-12-02] MEDS: PANTOPRAZOLE SODIUM 40 MG TABLET.DR PO SCH (06:24)
[2019-12-02] MEDS: INSULIN REG, HUMAN 100 UNIT/ML 3 ML VIAL (PYX) SUBCUT SCH ×4 (08:22→21:57)
[2019-12-02] MEDS: ENOXAPARIN SODIUM INJ 30 MG/0.3 ML DISP.SYRIN SUBCUT SCH (09:54)
[2019-12-02] MEDS: BRIMONIDINE TARTRATE 0.2% OPH SOLN 5 ML OU SCH ×2 (09:56→21:57)
[2019-12-02] MEDS: TIMOLOL MALEATE 0.5% OPH SOLN 5 ML OU SCH ×2 (09:57→21:57)
[2019-12-02] MEDS: [UNRECOGNIZED DRUG - OTHER] IV SCH ×5 (17:22)
[2019-12-02] MEDS: MAGNESIUM SULFATE IV SCH ×5 (17:22)
[2019-12-02] MEDS: POTASSIUM CHLORIDE IV SCH ×5 (17:22)
[2019-12-02] MEDS: NORMAL SALINE IV SCH ×5 (17:22)
--- NOTE | 2019-12-02 19:06 | PDOC PROGRESS REPORT ---
Subjective Progress Note for:: 12/02/19 Subjective:: Patient remain nonverbal but follow commands and participate in oral feeding with assistance. No reported fever or chills. No difficulty with breathing. Reason For Visit: UTI, AMS Physical Exam Vital Signs: Temp Pulse Resp BP Pulse Ox 97.8 F 66 20 154/51 H 97 12/01/19 15:07 12/01/19 15:07 12/01/19 15:07 12/01/19 15:07 12/01/19 15:07 Intake & Output 12/01/19 12/02/19 12/03/19 06:59 06:59 06:59 Intake Total 2390 1165.5 1015.5 Balance 2390 1165.5 1015.5 Weight 48.1 kg 49.6 kg Physical Exam: General appearance: PRESENT: no acute distress Head exam: PRESENT: atraumatic, normocephalic Eye exam: PRESENT: conjunctiva pink. ABSENT: pallor, scleral icterus Ear exam: PRESENT: normal external ear exam Mouth exam: PRESENT: moist Respiratory exam: PRESENT: clear to auscultation constantin, decreased breath sounds - at lung bases Cardiovascular exam: PRESENT: RRR, +S1, +S2, systolic murmur. ABSENT: diastolic murmur, rubs Murmur grade: 3 GI/Abdominal exam: PRESENT: normal bowel sounds, soft. ABSENT: distended, guarding, mass, organomegaly, rebound, tenderness Extremities exam: ABSENT: pedal edema Neurological exam: PRESENT: alert, awake Psychiatric exam: PRESENT: depressed. ABSENT: homicidal ideation, suicidal ideation Skin exam: PRESENT: dry, warm Murmur grade: 3 Results Laboratory Results: 12/01/19 04:19 12/01/19 04:19 11/28/19 11/28/19 18:41 20:20 Troponin I Cancelled < 0.012 Impressions: Chest X-Ray 11/28/19 17:57 IMPRESSION: No acute pulmonary findings. Head CT 11/28/19 17:57 IMPRESSION: No acute intracranial findings. 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 Similar age related involutional and chronic small vessel ischemic changes. EVIDENCE OF ACUTE STROKE: NO. Assessment & Plan - Diagnosis (1) E. coli UTI (urinary tract infection) Is this a current diagnosis for this admission?: Yes (2) Toxic metabolic encephalopathy Is this a current diagnosis for this admission?: Yes (3) Adult failure to thrive syndrome Is this a current diagnosis for this admission?: Yes Plan: Emphasized need for oral supplementation at meal time with nursing staff. Patient is not fully consuming supplied protein in the form of meat product on her plate. (4) Diabetes mellitus type 2 in nonobese Is this a current diagnosis for this admission?: Yes (5) HTN (hypertension) Qualifiers: Hypertension type: essential hypertension Qualified Code(s): I10 - Essential (primary) hypertension Is this a current diagnosis for this admission?: Yes (6) CAD (coronary artery disease), [place] coronary artery Qualifiers: [place] vs. transplanted heart: [place] heart Associated angina: without angina Qualified Code(s): I25.10 - Atherosclerotic heart disease of [place] coronary artery without angina pectoris Is this a current diagnosis for this admission?: Yes (7) Anemia of chronic disease Is this a current diagnosis for this admission?: Yes (8) Dementia in Alzheimer's disease with depression Is this a current diagnosis for this admission?: Yes - Time Time Spent with patient: 25-34 minutes Level of Care: TELE Medications reviewed and adjusted accordingly: Yes Anticipated discharge: Home with Homehealth, SNF, Hospice Within: Other - Inpatient Certification Based on my medical assessment, after consideration of the patient's comorbidities, presenting symptoms, or acuity I expect that the services needed warrant INPATIENT care.: Yes I certify that my determination is in accordance with my understanding of Medicare's requirements for reasonable and necessary INPATIENT services [42 CFR 412.3e].: Yes Medical Necessity: Significant Comorbidiites Make Outpatient Treatment Too Risky, Need Close Monitoring Due to Risk of Patient Decompensation, Need For IV Fluids, Need For Continuous Telemetry Monitoring, Risk of Complication if Not Cared For in Hospital, Risk of Diagnosis Which Will Require Inpatient Eval/Care/Monitoring Post Hospital Care: D/C Licensed Insurance Sales Agent Documentation - Plan Summary Plan Summary: Continue Levofloxacin coverage. Follow up on blood culture findings. Request PT evaluation.
[2019-12-02] MEDS: LATANOPROST 0.005% OPH SOLN 2.5 ML OU SCH (22:02)
[2019-12-03] MEDS: NORMAL SALINE 1000 ML 1,000 ML IV PRN ×2 (03:43→13:49)
[2019-12-03] MEDS: PANTOPRAZOLE SODIUM 40 MG TABLET.DR PO SCH (05:18)
[2019-12-03] MEDS: INSULIN REG, HUMAN 100 UNIT/ML 3 ML VIAL (PYX) SUBCUT SCH ×4 (08:40→21:38)
[2019-12-03] MEDS: ENOXAPARIN SODIUM INJ 30 MG/0.3 ML DISP.SYRIN SUBCUT SCH (09:08)
[2019-12-03] MEDS: TIMOLOL MALEATE 0.5% OPH SOLN 5 ML OU SCH ×2 (09:34→21:15)
[2019-12-03] MEDS: BRIMONIDINE TARTRATE 0.2% OPH SOLN 5 ML OU SCH ×2 (09:34→21:15)
--- NOTE | 2019-12-03 17:32 | PDOC PROGRESS REPORT ---
Subjective Progress Note for:: 12/03/19 Subjective:: There is concern about absence of bowel movement since admission. Her p.o intake remain a challenge. No reported fever or chills. No difficulty with breathing. Reason For Visit: UTI, AMS Physical Exam Vital Signs: Temp Pulse Resp BP Pulse Ox 98.3 F 77 20 109/42 L 95 12/03/19 11:01 12/03/19 11:01 12/03/19 11:01 12/03/19 11:01 12/03/19 11:01 Intake & Output 12/02/19 12/03/19 12/04/19 06:59 06:59 06:59 Intake Total 1165.5 4271.0 1353 Balance 1165.5 4271.0 1353 Weight 49.6 kg 54 kg 54 kg Physical Exam: General appearance: PRESENT: no acute distress Head exam: PRESENT: atraumatic, normocephalic Eye exam: PRESENT: conjunctiva pink. ABSENT: pallor, scleral icterus Ear exam: PRESENT: normal external ear exam Mouth exam: PRESENT: moist Respiratory exam: PRESENT: clear to auscultation constantin, decreased breath sounds - at lung bases Cardiovascular exam: PRESENT: RRR, +S1, +S2, systolic murmur. ABSENT: diastolic murmur, rubs Murmur grade: 3 GI/Abdominal exam: PRESENT: normal bowel sounds, soft. ABSENT: distended, guarding, mass, organomegaly, rebound, tenderness Extremities exam: ABSENT: pedal edema Neurological exam: PRESENT: alert, awake Psychiatric exam: PRESENT: depressed. ABSENT: homicidal ideation, suicidal ideation Skin exam: PRESENT: dry, warm Murmur grade: 3 Results Laboratory Results: 12/01/19 04:19 12/01/19 04:19 11/28/19 11/28/19 18:41 20:20 Troponin I Cancelled < 0.012 Impressions: Chest X-Ray 11/28/19 17:57 IMPRESSION: No acute pulmonary findings. Head CT 11/28/19 17:57 IMPRESSION: No acute intracranial findings. 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 Similar age related involutional and chronic small vessel ischemic changes. EVIDENCE OF ACUTE STROKE: NO. Assessment & Plan - Diagnosis (1) E. coli UTI (urinary tract infection) Is this a current diagnosis for this admission?: Yes (2) Toxic metabolic encephalopathy Is this a current diagnosis for this admission?: Yes (3) Adult failure to thrive syndrome Is this a current diagnosis for this admission?: Yes (4) Diabetes mellitus type 2 in nonobese Is this a current diagnosis for this admission?: Yes (5) HTN (hypertension) Qualifiers: Hypertension type: essential hypertension Qualified Code(s): I10 - E ssential (primary) hypertension Is this a current diagnosis for this admission?: Yes (6) CAD (coronary artery disease), [place] coronary artery Qualifiers: [place] vs. transplanted heart: [place] heart Associated angina: without angina Qualified Code(s): I25.10 - Atherosclerotic heart disease of [place] coronary artery without angina pectoris Is this a current diagnosis for this admission?: Yes (7) Anemia of chronic disease Is this a current diagnosis for this admission?: Yes (8) Dementia in Alzheimer's disease with depression Is this a current diagnosis for this admission?: Yes (9) Constipation Qualifiers: Constipation type: unspecified constipation type Qualified Code(s): K59.00 - Constipation, unspecified Is this a current diagnosis for this admission?: Yes Plan: See attending physician orders for details about care plan. - Time Time Spent with patient: 25-34 minutes Level of Care: TELE Medications reviewed and adjusted accordingly: Yes Anticipated discharge: Home with Homehealth, SNF, Hospice Within: Other - Inpatient Certification Based on my medical assessment, after consideration of the patient's comorbidities, presenting symptoms, or acuity I expect that the services needed warrant INPATIENT care.: Yes I certify that my determination is in accordance with my understanding of Medicare's requirements for reasonable and necessary INPATIENT services [42 CFR 412.3e].: Yes Medical Necessity: Significant Comorbidiites Make Outpatient Treatment Too Risky, Need Close Monitoring Due to Risk of Patient Decompensation, Need For IV Fluids, Need For Continuous Telemetry Monitoring, Need for IV Antibiotics, Risk of Complication if Not Cared For in Hospital, Risk of Diagnosis Which Will Require Inpatient Eval/Care/Monitoring Post Hospital Care: D/C [employer] Documentation, D/C or Transfer Summary - Plan Summary Plan Summary: Obtain abdominal X ray to evaluate fecal burden. Administer Dulcolax 10 mg AL x 1 dose. decrease IV fluid rate to 75 ml/hour. Continue vitamin and electrolyte supplementation therapy. Continue all other current medication management.
[2019-12-03] MEDS ORDERED: BISACODYL 10 MG SUPP.RECT PR ONE (18:00)
[2019-12-03] MEDS: NORMAL SALINE IV SCH ×5 (18:36)
[2019-12-03] MEDS: POTASSIUM CHLORIDE IV SCH ×5 (18:36)
[2019-12-03] MEDS: [UNRECOGNIZED DRUG - OTHER] IV SCH ×5 (18:36)
[2019-12-03] MEDS: MAGNESIUM SULFATE IV SCH ×5 (18:36)
--- NOTE | 2019-12-03 19:04 | RADIOLOGY REPORT (SQ) ---
EXAM DESCRIPTION: KUB/ABDOMEN (SINGLE VIEW) COMPLETED DATE/TIME: 12/03/2019 6:47 pm REASON FOR STUDY: Constipation COMPARISON: None. NUMBER OF VIEWS: One view. TECHNIQUE: Supine radiographic image of the abdomen acquired. LIMITATIONS: None. FINDINGS: BOWEL GAS PATTERN: Normal bowel gas pattern. No dilated loops. CONSTIPATION: marked fecal impaction. CALCIFICATIONS: No suspicious calcifications. SOFT TISSUES: No gross mass or suggestion of organomegaly. HARDWARE: None in the abdomen. BONES: Right hip replacement. OTHER: No other significant finding. IMPRESSION: NO RADIOGRAPHIC EVIDENCE FOR ACUTE ABDOMINAL DISEASE. Marked constipation. TECHNICAL DOCUMENTATION: JOB ID: [id number] [employer]- All Rights Reserved Reading location - IP/workstation name: [email or web address]
[2019-12-03] MEDS: LATANOPROST 0.005% OPH SOLN 2.5 ML OU SCH (21:15)
[2019-12-03] MEDS: LEVOFLOXACIN 750 MG TABLET PO SCH (21:38)
[2019-12-04] MEDS: NORMAL SALINE 1000 ML 1,000 ML IV PRN ×2 (05:05→18:54)
[2019-12-04] MEDS: PANTOPRAZOLE SODIUM 40 MG TABLET.DR PO SCH (05:05)
[2019-12-04] MEDS: TIMOLOL MALEATE 0.5% OPH SOLN 5 ML OU SCH ×2 (09:56→22:22)
[2019-12-04] MEDS: BRIMONIDINE TARTRATE 0.2% OPH SOLN 5 ML OU SCH ×2 (09:56→22:21)
[2019-12-04] MEDS: ENOXAPARIN SODIUM INJ 30 MG/0.3 ML DISP.SYRIN SUBCUT SCH (09:57)
[2019-12-04] MEDS: INSULIN REG, HUMAN 100 UNIT/ML 3 ML VIAL (PYX) SUBCUT SCH ×4 (10:02→22:23)
--- NOTE | 2019-12-04 12:32 | PDOC PROGRESS REPORT ---
Subjective Progress Note for:: 12/04/19 Subjective:: Patient is currently doing same per nursing staff no other concerns X-ray KUB so the constipation's Reason For Visit: UTI, AMS Physical Exam Vital Signs: Temp Pulse Resp BP Pulse Ox 98.0 F 75 26 H 152/59 H 95 12/04/19 08:27 12/04/19 08:27 12/04/19 08:27 12/04/19 08:27 12/04/19 08:27 Intake & Output 12/03/19 12/04/19 12/05/19 06:59 06:59 06:59 Intake Total 4271.0 2858.5 Balance 4271.0 2858.5 Weight 54 kg 55.7 kg General appearance: PRESENT: no acute distress Eye exam: PRESENT: PERRLA Mouth exam: PRESENT: neck supple Respiratory exam: PRESENT: clear to auscultation constantin Murmur grade: 3 GI/Abdominal exam: PRESENT: normal bowel sounds, soft Neurological exam: PRESENT: alert, awake Skin exam: PRESENT: dry Results Laboratory Results: 12/01/19 04:19 12/01/19 04:19 11/28/19 20:20 Blood Blood Culture - Final NO GROWTH IN 5 DAYS 11/28/19 19:57 Blood Blood Culture - Final NO GROWTH IN 5 DAYS 11/28/19 11/28/19 18:41 20:20 Troponin I Cancelled < 0.012 Impressions: Chest X-Ray 11/28/19 17:57 IMPRESSION: No acute pulmonary findings. Head CT 11/28/19 17:57 IMPRESSION: No acute intracranial findings. 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 Similar age related involutional and chronic small vessel ischemic changes. EVIDENCE OF ACUTE STROKE: NO. KUB X-Ray 12/03/19 00:00 IMPRESSION: NO RADIOGRAPHIC EVIDENCE FOR ACUTE ABDOMINAL DISEASE. Marked constipation. Assessment & Plan - Diagnosis (1) Adult failure to thrive syndrome Is this a current diagnosis for this admission?: Yes (2) Constipation Qualifiers: Constipation type: unspecified constipation type Qualified Code(s): K59.00 - Constipation, unspecified Is this a current diagnosis for this admission?: Yes (3) E. coli UTI (urinary tract infection) Is this a current diagnosis for this admission?: Yes (4) Toxic metabolic encephalopathy Is this a current diagnosis for this admission?: Yes (5) CAD (coronary artery disease), [place] coronary artery Qualifiers: [place] vs. transplanted heart: [place] heart Associated angina: without angina Qualified Code(s): I25.10 - Atherosclerotic heart disease of [place] coronary artery without angina pectoris Is this a current diagnosis for this admission?: Yes (6) Dementia in Alzheimer's disease with depression Is this a current diagnosis for this admission?: Yes (7) Diabetes mellitus type 2 in nonobese Is this a current diagnosis for this admission?: Yes - Time Time Spent with patient: 15-24 minutes Level of Care: TELE Medications reviewed and adjusted accordingly: Yes Anticipated discharge: Other Within: Other - Plan Summary Plan Summary: We will start the patient on MiraLAX and Colace repeat the blood work in the morning
[2019-12-04] MEDS: POLYETHYLENE GLYCOL 3350 POWDER 17 GM/1 PACKET PO SCH (18:08)
[2019-12-04] MEDS: [UNRECOGNIZED DRUG - OTHER] IV SCH ×5 (18:54)
[2019-12-04] MEDS: POTASSIUM CHLORIDE IV SCH ×5 (18:54)
[2019-12-04] MEDS: NORMAL SALINE IV SCH ×5 (18:54)
[2019-12-04] MEDS: MAGNESIUM SULFATE IV SCH ×5 (18:54)
[2019-12-04] MEDS: LATANOPROST 0.005% OPH SOLN 2.5 ML OU SCH (22:19)
[2019-12-05] MEDS: ACETAMINOPHEN 325 MG TABLET PO PRN (01:36)
[2019-12-05] MEDS: PANTOPRAZOLE SODIUM 40 MG TABLET.DR PO SCH (05:25)
[2019-12-05 06:17] LABS: ABSOLUTE BASOPHILS # (AUTO) 0.1 10^3/uL (0.0-0.2); ABSOLUTE EOSINOPHILS # (AUTO) 0.2 10^3/uL (0.0-0.6); ABSOLUTE LYMPHOCYTES (AUTO) 1.7 10^3/uL (0.5-4.7); ABSOLUTE NEUT (AUTO) 6.8 10^3/uL (1.7-8.2); BASOPHILS % (AUTO) 0.7 % (0-2); HEMOGLOBIN 9.9 g/dL (12.0-15.5); MEAN CORPUSCULAR HEMOGLOBIN 30.5 pg (27.0-33.4); MEAN CORPUSCULAR HGB CONC 34.1 g/dL (32.0-36.0); MEAN CORPUSCULAR VOLUME 89 fl (80-97); MONOCYTES % (AUTO) 9.9 % (3-13); PLATELET COUNT 130 10^3/uL (150-450); RED BLOOD COUNT 3.24 10^6/uL (3.72-5.28); RED CELL DISTRIBUTION WIDTH 13.7 % (11.5-14.0); SEGMENTED NEUTROPHILS % (AUTO) 69.4 % (42-78); TOTAL CELLS COUNTED % (AUTO) 100 %; WHITE BLOOD COUNT 9.7 10^3/uL (4.0-10.5)
[2019-12-05 06:44] LABS: ANION GAP 7 (5-19); BLOOD UREA NITROGEN 18 mg/dL (7-20); CALCIUM 8.1 mg/dL (8.4-10.2); CARBON DIOXIDE 21 mmol/L (22-30); CHLORIDE 101 mmol/L (98-107); GLUCOSE 107 mg/dL (75-110)
[2019-12-05] MEDS: INSULIN REG, HUMAN 100 UNIT/ML 3 ML VIAL (PYX) SUBCUT SCH ×4 (08:31→21:43)
[2019-12-05] MEDS: ENOXAPARIN SODIUM INJ 30 MG/0.3 ML DISP.SYRIN SUBCUT SCH (11:05)
[2019-12-05] MEDS: POLYETHYLENE GLYCOL 3350 POWDER 17 GM/1 PACKET PO SCH (11:34)
[2019-12-05] MEDS: BRIMONIDINE TARTRATE 0.2% OPH SOLN 5 ML OU SCH ×2 (11:34→21:51)
[2019-12-05] MEDS: TIMOLOL MALEATE 0.5% OPH SOLN 5 ML OU SCH ×2 (11:34→21:51)
--- NOTE | 2019-12-05 11:39 | PDOC PROGRESS REPORT ---
Subjective Progress Note for:: 12/05/19 Subjective:: Patient is currently doing same According to the daughter on the bedside before this happened patient was able to walk with the walker and feed by herself and worry about any strokes Patient initial CT of the head was negative Patient have a E. coli urinary tract infections Reason For Visit: UTI, AMS Physical Exam Vital Signs: Temp Pulse Resp BP Pulse Ox 97.8 F 85 16 134/51 H 93 12/05/19 07:56 12/05/19 07:56 12/05/19 07:56 12/05/19 07:56 12/05/19 07:56 Intake & Output 12/04/19 12/05/19 12/06/19 06:59 06:59 06:59 Intake Total 2858.5 2954.5 Balance 2858.5 2954.5 Weight 55.7 kg 52.5 kg General appearance: PRESENT: no acute distress Head exam: PRESENT: atraumatic, normocephalic Eye exam: PRESENT: conjunctiva pink, EOMI, PERRLA. ABSENT: scleral icterus Ear exam: PRESENT: normal external ear exam Mouth exam: PRESENT: moist, tongue midline Neck exam: PRESENT: full ROM. ABSENT: carotid bruit, JVD, lymphadenopathy, thyromegaly Cardiovascular exam: PRESENT: RRR. ABSENT: diastolic murmur, rubs, systolic murmur Murmur grade: 3 Pulses: PRESENT: normal dorsalis pedis pul, +2 pedal pulses bilateral Vascular exam: PRESENT: normal capillary refill GI/Abdominal exam: PRESENT: normal bowel sounds, soft. ABSENT: distended, guarding, mass, organolmegaly, rebound, tenderness Rectal exam: PRESENT: deferred Neurological exam: PRESENT: altered. ABSENT: motor sensory deficit Psychiatric exam: PRESENT: appropriate affect, normal mood. ABSENT: homicidal ideation, suicidal ideation Skin exam: PRESENT: dry, intact, warm. ABSENT: cyanosis, rash Results Laboratory Results: 12/05/19 06:04 12/05/19 06:04 12/05/19 12/05/19 06:04 06:04 WBC 9.7 RBC 3.24 L Hgb 9.9 L Hct 29.0 L MCV 89 MCH 30.5 MCHC 34.1 RDW 13.7 Plt Count 130 L Seg Neutrophils % 69.4 Sodium 128.6 L Potassium 4.0 Chloride 101 Carbon Dioxide 21 L Anion Gap 7 BUN 18 Creatinine 0.74 Est GFR ( Amer) > 60 Glucose 107 Calcium 8.1 L 11/28/19 11/28/19 18:41 20:20 Troponin I Cancelled < 0.012 Impressions: Chest X-Ray 11/28/19 17:57 IMPRESSION: No acute pulmonary findings. Head CT 11/28/19 17:57 IMPRESSION: No acute intracranial findings. 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 Similar age related involutional and chronic small vessel ischemic changes. EVIDENCE OF ACUTE STROKE: NO. KUB X-Ray 12/03/19 00:00 IMPRESSION: NO RADIOGRAPHIC EVIDENCE FOR ACUTE ABDOMINAL DISEASE. Marked constipation. Assessment & Plan - Diagnosis (1) Adult failure to thrive syndrome Is this a current diagnosis for this admission?: Yes (2) Constipation Qualifiers: Constipation type: unspecified constipation type Qualified Code(s): K59.00 - Constipation, unspecified Is this a current diagnosis for this admission?: Yes (3) E. coli UTI (urinary tract infection) Is this a current diagnosis for this admission?: Yes (4) Toxic metabolic encephalopathy Is this a current diagnosis for this admission?: Yes (5) CAD (coronary artery disease), [place] coronary artery Qualifiers: [place] vs. 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
--- NOTE | 2019-12-05 13:39 | RADIOLOGY REPORT (SQ) ---
EXAM DESCRIPTION: CT HEAD WITHOUT COMPLETED DATE/TIME: 12/05/2019 1:22 pm REASON FOR STUDY: stroke like sx COMPARISON: 11/28/2019 TECHNIQUE: Axial images acquired through the brain without intravenous contrast. Images reviewed wi th bone, brain and subdural windows. Additional sagittal and coronal reconstructions were generated. Images stored on PACS. All CT scanners at this facility use dose modulation, iterative reconstruction, and/or weight based d osing when appropriate to reduce radiation dose to as low as reasonably achievable (ALARA). [facility]: Dose Right [facility]: CareDose [facility]: Dose Right [facility]: Teradose 4D [facility]: Smart INVOLTA RADIATION DOSE: CT Rad equipment meets quality standard of care and radiation dose reduction techniq ues were employed. CTDIvol: 53.2 mGy. DLP: 964 mGy-cm.mGy. LIMITATIONS: None. FINDINGS: VENTRICLES: Prominent. CEREBRUM: There is a focal area of low density in the left frontal lobe not seen on the previous stud y. Mild mass effect on the frontal horn of the left lateral ventricle. Acute infarction. No hemorr [place]. 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 Chronic microvascular ischemia. CEREBELLUM: No masses. No hemorrhage. No alteration of density. No evidence for acute infarction. EXTRAAXIAL SPACES: Age-related involutional change. No fluid collections. No masses. ORBITS AND GLOBE: No intra- or extraconal masses. Normal contour of globe without masses. CALVARIUM: No fracture. PARANASAL SINUSES: Sphenoid sinus disease. SOFT TISSUES: No mass or hematoma. OTHER: No other significant finding. IMPRESSION: Acute infarction without hemorrhage or significant mass effect left frontal lobe. 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 Microvascular ischemia. EVIDENCE OF ACUTE STROKE: YES. LEFT BROOKE. TECHNICAL DOCUMENTATION: JOB ID: [id number] Quality ID # [id number]: Final reports with documentation of one or more dose reduction techniques (e.g., Au tomated exposure control, adjustment of the mA and/or kV according to patient size, use of iterative reconstruction technique) 2010 [employer]- All Rights Reserved Reading location - IP/workstation name: [email or web address]
[2019-12-05] MEDS ORDERED: ATORVASTATIN CALCIUM 40 MG TABLET PO ONE (18:30)
[2019-12-05] MEDS ORDERED: ASPIRIN 325 MG TABLET PO ONE (18:30)
[2019-12-05] MEDS: [UNRECOGNIZED DRUG - OTHER] IV SCH ×5 (18:57)
[2019-12-05] MEDS: POTASSIUM CHLORIDE IV SCH ×5 (18:57)
[2019-12-05] MEDS: MAGNESIUM SULFATE IV SCH ×5 (18:57)
[2019-12-05] MEDS: NORMAL SALINE IV SCH ×5 (18:57)
[2019-12-05] MEDS: LEVOFLOXACIN 750 MG TABLET PO SCH (21:40)
[2019-12-05] MEDS: LATANOPROST 0.005% OPH SOLN 2.5 ML OU SCH (21:52)
[2019-12-06] MEDS: PANTOPRAZOLE SODIUM 40 MG TABLET.DR PO SCH (05:21)
[2019-12-06 07:28] LABS: ABSOLUTE BASOPHILS # (AUTO) 0.1 10^3/uL (0.0-0.2); ABSOLUTE EOSINOPHILS # (AUTO) 0.6 10^3/uL (0.0-0.6); ABSOLUTE LYMPHOCYTES (AUTO) 1.5 10^3/uL (0.5-4.7); ABSOLUTE MONOCYTES (AUTO) 0.7 10^3/uL (0.1-1.4); ABSOLUTE NEUT (AUTO) 6.7 10^3/uL (1.7-8.2); EOSINOPHILS % (AUTO) 5.9 % (0-6); HEMATOCRIT 31.3 % (36.0-47.0); HEMOGLOBIN 10.8 g/dL (12.0-15.5); LYMPHOCYTES % (AUTO) 15.6 % (13-45); MEAN CORPUSCULAR HEMOGLOBIN 30.3 pg (27.0-33.4); MEAN CORPUSCULAR HGB CONC 34.3 g/dL (32.0-36.0); MEAN CORPUSCULAR VOLUME 88 fl (80-97); MONOCYTES % (AUTO) 7.7 % (3-13); RED BLOOD COUNT 3.55 10^6/uL (3.72-5.28); RED CELL DISTRIBUTION WIDTH 13.7 % (11.5-14.0); SEGMENTED NEUTROPHILS % (AUTO) 69.8 % (42-78); TOTAL CELLS COUNTED % (AUTO) 100 %; WHITE BLOOD COUNT 9.6 10^3/uL (4.0-10.5)
[2019-12-06 07:46] LABS: PLATELET COUNT 143 10^3/uL (150-450)
[2019-12-06] MEDS: INSULIN REG, HUMAN 100 UNIT/ML 3 ML VIAL (PYX) SUBCUT SCH ×4 (08:37→22:30)
[2019-12-06] MEDS: NORMAL SALINE 1000 ML 1,000 ML IV PRN (08:42)
[2019-12-06 10:32] LABS: ANION GAP 8 (5-19); BLOOD UREA NITROGEN 17 mg/dL (7-20); CALCIUM 8.6 mg/dL (8.4-10.2); CARBON DIOXIDE 24 mmol/L (22-30); CHLORIDE 99 mmol/L (98-107); GLUCOSE 92 mg/dL (75-110); POTASSIUM 5.1 mmol/L (3.6-5.0)
[2019-12-06] MEDS: ASPIRIN 325 MG TABLET PO SCH (10:40)
[2019-12-06] MEDS: POLYETHYLENE GLYCOL 3350 POWDER 17 GM/1 PACKET PO SCH (10:44)
[2019-12-06] MEDS: ENOXAPARIN SODIUM INJ 30 MG/0.3 ML DISP.SYRIN SUBCUT SCH (10:44)
[2019-12-06] MEDS: BRIMONIDINE TARTRATE 0.2% OPH SOLN 5 ML OU SCH ×2 (10:45→21:45)
[2019-12-06] MEDS: TIMOLOL MALEATE 0.5% OPH SOLN 5 ML OU SCH ×2 (10:45→21:45)
[2019-12-06] MEDS: MAGNESIUM SULFATE IV SCH ×5 (17:59)
[2019-12-06] MEDS: NORMAL SALINE IV SCH ×5 (17:59)
[2019-12-06] MEDS: [UNRECOGNIZED DRUG - OTHER] IV SCH ×5 (17:59)
[2019-12-06] MEDS: POTASSIUM CHLORIDE IV SCH ×5 (17:59)
--- NOTE | 2019-12-06 21:00 | PDOC PROGRESS REPORT ---
Subjective Progress Note for:: 12/06/19 Subjective:: Patient's p.o intake is improving with feeding assistance. No reported fever or chills. No observed chest pain or difficulty with breathing. Her repeat CT head revealed left frontal lobe acute infarct since my last clinical evaluation. Patient remain aphasic but mouthing lips close to verbal utterances as per daughter's report. Reason For Visit: UTI, AMS Physical Exam Vital Signs: Temp Pulse Resp BP Pulse Ox 97.4 F 88 20 149/60 H 96 12/06/19 08:00 12/06/19 14:00 12/06/19 08:00 12/06/19 08:00 12/06/19 08:00 Intake & Output 12/05/19 12/06/19 12/07/19 06:59 06:59 06:59 Intake Total 2954.5 1237 1015.5 Balance 2954.5 1237 1015.5 Weight 52.5 kg 53.7 kg Physical Exam: General appearance: PRESENT: no acute distress Head exam: PRESENT: atraumatic, normocephalic Eye exam: PRESENT: conjunctiva pink. ABSENT: pallor, scleral icterus Ear exam: PRESENT: normal external ear exam Mouth exam: PRESENT: moist Respiratory exam: PRESENT: clear to auscultation constantin, decreased breath sounds - at lung bases Cardiovascular exam: PRESENT: RRR, +S1, +S2, systolic murmur. ABSENT: diastolic murmur, rubs Murmur grade: 3 GI/Abdominal exam: PRESENT: normal bowel sounds, soft. ABSENT: distended, guarding, mass, organomegaly, rebound, tenderness Extremities exam: ABSENT: pedal edema Neurological exam: PRESENT: alert, awake Psychiatric exam: PRESENT: depressed. ABSENT: homicidal ideation, suicidal ideation Skin exam: PRESENT: dry, warm Murmur grade: 3 Results Laboratory Results: 12/06/19 06:30 12/06/19 09:23 12/06/19 12/06/19 12/06/19 06:30 06:30 09:23 WBC 9.6 RBC 3.55 L Hgb 10.8 L Hct 31.3 L MCV 88 MCH 30.3 MCHC 34.3 RDW 13.7 Plt Count 143 L Seg Neutrophils % 69.8 Sodium Cancelled 130.5 L Potassium Cancelled 5.1 H Chloride Cancelled 99 Carbon Dioxide Cancelled 24 Anion Gap Cancelled 8 BUN Cancelled 17 Creatinine Cancelled 0.82 Est GFR ( Amer) Cancelled > 60 Est GFR (Non-Af Amer) Cancelled Glucose Cancelled 92 Calcium Cancelled 8.6 11/28/19 11/28/19 18:41 20:20 Troponin I Cancelled < 0.012 Impressions: Chest X-Ray 11/28/19 17:57 IMPRESSION: No acute pulmonary findings. KUB X-Ray 12/03/19 00:00 IMPRESSION: NO RADIOGRAPHIC EVIDENCE FOR ACUTE ABDOMINAL DISEASE. Marked constipation. Head CT 12/05/19 00:00 IMPRESSION: Acute infarction without hemorrhage or significant mass effect left frontal lobe. 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 Microvascular ischemia. EVIDENCE OF ACUTE STROKE: YES. LEFT BROOKE. Assessment & Plan - Diagnosis (1) E. coli UTI (urinary tract infection) Is this a current diagnosis for this admission?: Yes (2) Toxic metabolic encephalopathy Is this a current diagnosis for this admission?: Yes (3) Adult failure to thrive syndrome Is this a current diagnosis for this admission?: Yes (4) Diabetes mellitus type 2 in nonobese Is this a current diagnosis for this admission?: Yes (5) HTN (hypertension) Qualifiers: Hypertension type: essential hypertension Qualified Code(s): I10 - Essential (primary) hypertension Is this a current diagnosis for this admission?: Yes (6) CAD (coronary artery disease), [place] coronary artery Qualifiers: [place] vs. transplanted heart: [place] heart Associated angina: without angina Qualified Code(s): I25.10 - Atherosclerotic heart disease of [place] coronary artery without angina pectoris Is this a current diagnosis for this admission?: Yes (7) Anemia of chronic disease Is this a current diagnosis for this admission?: Yes (8) Dementia in Alzheimer's disease with depression Is this a current diagnosis for this admission?: Yes (9) Constipation Qualifiers: Constipation type: unspecified constipation type Qualified Code(s): K59.00 - Constipation, unspecified Is this a current diagnosis for this admission?: Yes - Time Time Spent with patient: 25-34 minutes Level of Care: IMCU Medications reviewed and adjusted accordingly: Yes Anticipated discharge: Home with Homehealth, SNF Within: Other - Inpatient Certification Based on my medical assessment, after consideration of the patient's comorbidities, presenting symptoms, or acuity I expect that the services needed warrant INPATIENT care.: Yes I certify that my determination is in accordance with my understanding of Medicare's requirements for reasonable and necessary INPATIENT services [42 CFR 412.3e].: Yes Medical Necessity: Significant Comorbidiites Make Outpatient Treatment Too Risky, Need Close Monitoring Due to Risk of Patient Decompensation, Need For IV Fluids, Need For Continuous Telemetry Monitoring, Risk of Complication if Not Cared For in Hospital, Risk of Diagnosis Which Will Require Inpatient Eval/Care/Monitoring Post Hospital Care: D/C or Transfer Summary - Plan Summary Plan Summary: Continue current medication management. Obtain complete echocardiogram and carotid Doppler evaluation.
[2019-12-06] MEDS: ATORVASTATIN CALCIUM 40 MG TABLET PO SCH (21:45)
--- NOTE | 2019-12-06 22:09 | XCELERA REPORT ---
[address] [address] Transthoracic Echocardiogram Report Name: JOHNATHAN FUNK Age: 78 yrs Gender: Female : 1940 Patient Status: Inpatient Patient Location: [address] [place] [address] Study Date: 12/06/2019 07:49 PM Height: 67 in Weight: 115 lb BSA: 1.6 m2 Procedure: A two-dimensional transthoracic echocardiogram with color flow and Doppler was performed. The study was technically difficult with many images being suboptimal in quality. Reason For Study: Stroke protocol (CVA) History: Stroke protocol (CVA). Ordering Physician: NIKA RODRIGUEZ Performed By: Arely Smallwood Interpretation Summary There is no obvious cardiac source of embolus noted on this transthoracic echocardiogram. Follow-up with a AVTAR is suggested if cardiac source is still suspected. The left ventricle is normal in size. There is normal left ventricular wall thickness. LV EF is 50% Left ventricular systolic function is mildly reduced. LV diastolic function could not be adequately assessed. There is apical wall moderate hypokinesis Rest ot the LV mason contract normally. There is no thrombus. No ASD ,VSD ,or PFO seen The right ventricle is grossly normal size. The right ventricle is not well visualized secondary to technical limitations The left atrial size is normal. There is no evidence of mitral valve prolapse. There is no vegetation seen on the mitral valve. There is no mitral valve stenosis. There is a trace amount of mitral regurgitation There is no aortic valvular vegetation. There is no aortic valve stenosis There is no LVOT obstruction. There is a mild amount of aortic regurgitation There is no tricuspid stenosis. There is a trace amount of tricuspid regurgitation There is mild pulmonary hypertension by echo RVSP is 39 to 44 mm of Hg , with RA mean of 5 to 10. There is no pulmonic valvular stenosis. There is a trace amount of pulmonic regurgitation The aortic root is not well visualized. The inferior vena cava appeared normal and decreased > 50% with respiration (RAP 5-10 mmHg) There is no pericardial effusion. There is no obvious cardiac source of embolus noted on this transthoracic echocardiogram. Follow-up with a AVTAR is suggested if cardiac source is still suspected MMode/2D Measurements & Calculations RVDd: 1.7 cm LVIDd: 4.6 cm FS: 28.4 % LA dimension: 3.4 cm IVSd: 0.97 cm LVIDs: 3.3 cm EDV(Teich): 95.0 ml LVPWd: 0.90 cm ESV(Teich): 42.8 ml EF(Teich): 54.9 % Doppler Measurements & Calculations MV E max grabiel: MV P1/2t max grabiel: Ao V2 max: AI max grabiel: 121.2 cm/sec 171.0 cm/sec 127.6 cm/sec 426.2 cm/sec MV P1/2t: 45.1 msec Ao max PG: AI max P.7 mmHg MVA(P1/2t): 4.9 cm2 6.5 mmHg AI dec slope: MV dec slope: 389.5 cm/sec2 AI P1/2t: 320.5 msec 1112 cm/sec2 MV dec time: 0.14 sec LV V1 max PG: PA V2 max: TR max grabiel: AV P1/2t-pr_phl: 3.8 mmHg 108.6 cm/sec 290.5 cm/sec 321.7 msec LV V1 max: PA max P.7 mmHg TR max P.1 cm/sec 33.8 mmHg MV P1/2t-pr_phl: 45.1 msec Left Ventricle The left ventricle is normal in size. There is normal left ventricular wall thickness. LV EF is 50%. Left ventricular systolic function is mildly reduced. LV diastolic function could not be adequately assessed. There is apical wall moderate hypokinesis. Rest ot the LV mason contract normally. There is no thrombus. No ASD ,VSD ,or PFO seen. Right Ventricle The right ventricle is grossly normal size. The right ventricle is not well visualized secondary to technical limitations. Atria The right atrium is normal. The left atrial size is normal. Mitral Valve There is no evidence of mitral valve prolapse. There is no vegetation seen on the mitral valve. There is no mitral valve stenosis. There is a trace amount of mitral regurgitation. Aortic Valve There is no aortic valvular vegetation. There is no aortic valve stenosis. There is no LVOT obstruction. There is a mild amount of aortic regurgitation. Tricuspid Valve There is no tricuspid stenosis. There is a trace amount of tricuspid regurgitation. There is mild pulmonary hypertension by echo. RVSP is 39 to 44 mm of Hg , with RA mean of 5 to 10. Pulmonic Valve There is no pulmonic valvular stenosis. There is a trace amount of pulmonic regurgitation. Great Vessels The aortic root is not well visualized. The inferior vena cava appeared normal and decreased > 50% with respiration (RAP 5-10 mmHg). Effusions There is no pericardial effusion. : NIKA RODRIGUEZ Lakshmi
[2019-12-07] MEDS: LATANOPROST 0.005% OPH SOLN 2.5 ML OU SCH (02:37)
[2019-12-07] MEDS: PANTOPRAZOLE SODIUM 40 MG TABLET.DR PO SCH (06:41)
[2019-12-07 07:09] LABS: ANION GAP 9 (5-19); BLOOD UREA NITROGEN 19 mg/dL (7-20); CALCIUM 8.2 mg/dL (8.4-10.2); CARBON DIOXIDE 24 mmol/L (22-30); CHLORIDE 98 mmol/L (98-107); GLUCOSE 87 mg/dL (75-110); POTASSIUM 4.5 mmol/L (3.6-5.0)
[2019-12-07] MEDS: INSULIN REG, HUMAN 100 UNIT/ML 3 ML VIAL (PYX) SUBCUT SCH ×3 (08:28→17:02)
[2019-12-07] MEDS: POLYETHYLENE GLYCOL 3350 POWDER 17 GM/1 PACKET PO SCH (09:18)
[2019-12-07] MEDS: ENOXAPARIN SODIUM INJ 30 MG/0.3 ML DISP.SYRIN SUBCUT SCH (09:18)
[2019-12-07] MEDS: NORMAL SALINE 1000 ML 1,000 ML IV PRN (09:18)
[2019-12-07] MEDS: ASPIRIN 325 MG TABLET PO SCH (09:18)
[2019-12-07] MEDS: TIMOLOL MALEATE 0.5% OPH SOLN 5 ML OU SCH ×2 (09:18→22:03)
[2019-12-07] MEDS: BRIMONIDINE TARTRATE 0.2% OPH SOLN 5 ML OU SCH ×2 (09:18→22:03)
--- NOTE | 2019-12-07 09:31 | RADIOLOGY REPORT (SQ) ---
EXAM DESCRIPTION: CAROTID DOPPLER COMPLETED DATE/TIME: 12/06/2019 10:16 pm REASON FOR STUDY: stroke protocol COMPARISON: CT brain 12/05/2019, 11/28/2019 TECHNIQUE: Grayscale ultrasound, Doppler velocity and spectra, and color Doppler images acquired of the extra-cranial carotid and vertebral arteries. Images stored on PACS. LIMITATIONS: None. FINDINGS: RIGHT CAROTID CCA Velocities: Within normal limits, peak systolic velocity 1 m/sec. ICA Velocities Peak systolic 0.76 m/s. End diastolic 0.17 m/s. Proximal ICA/CCA peak systolic ratio 0.9. Spectra normal. Minimal calcific plaque at the right carotid bifurcation without flow significant st enosis. LEFT CAROTID CCA Velocities: Within normal limits, peak systolic velocity 1.4 m/sec. There is diffuse intimal thi ckening without focal high-grade stenosis in the common carotid artery. ICA Velocities Peak systolic 1.3 m/s. End diastolic 0.13 m/s. Proximal ICA/CCA peak systolic ratio 0.9. Spectra normal. Minimal calcific shadowing plaque at the left carotid bifurcation without flow signi ficant stenosis. VERTEBRAL ARTERIES: Antegrade flow. Normal waveforms. SUBCLAVIAN ARTERIES: No finding. OTHER: No other significant finding. IMPRESSION: NO HEMODYNAMICALLY SIGNIFICANT STENOSIS. COMMENT: Quality ID #[id number]: Velocity criteria are extrapolated from the diameter data as defined by t he Society of Radiologists in Ultrasound Consensus Conference. Radiology 2003: 229; 340-346. TECHNICAL DOCUMENTATION: JOB ID: [id number] [employer]- All Rights Reserved Reading location - IP/workstation name: [email or web address]
[2019-12-07] MEDS: POTASSIUM CHLORIDE IV SCH ×5 (17:46)
[2019-12-07] MEDS: MAGNESIUM SULFATE IV SCH ×5 (17:46)
[2019-12-07] MEDS: [UNRECOGNIZED DRUG - OTHER] IV SCH ×5 (17:46)
[2019-12-07] MEDS: NORMAL SALINE IV SCH ×5 (17:46)
--- NOTE | 2019-12-07 20:29 | PDOC PROGRESS REPORT ---
Subjective Progress Note for:: 12/07/19 Reason For Visit: UTI, AMS Physical Exam Vital Signs: Temp Pulse Resp BP Pulse Ox 98.6 F 90 20 138/56 H 99 12/07/19 04:59 12/07/19 06:49 12/07/19 04:59 12/07/19 04:59 12/07/19 04:59 Pulse Oximeter Nocturnal Start: 12/06/19 18:06 Freq: RTQ4 Status: Active Protocol: Document 12/07/19 04:45 PMU (Rec: 12/07/19 05:50 PMU [id number]) Nocturnal Pulse Oximetry Equipment Usage Equipment in Use Oxygen Delivery Method (includes room Room Air air) O2 Sat by Pulse Oximetry (92-100) 97 Continuous SpO2 Machine # N3 Intake & Output 12/06/19 12/07/19 12/08/19 06:59 06:59 06:59 Intake Total 1237 3727.0 Balance 1237 3727.0 Weight 53.7 kg 53.7 kg Physical Exam: General appearance: PRESENT: no acute distress Head exam: PRESENT: atraumatic, normocephalic Eye exam: PRESENT: conjunctiva pink. ABSENT: pallor, scleral icterus Ear exam: PRESENT: normal external ear exam Mouth exam: PRESENT: moist Respiratory exam: PRESENT: clear to auscultation constantin, decreased breath sounds - at lung bases Cardiovascular exam: PRESENT: RRR, +S1, +S2, systolic murmur. ABSENT: diastolic murmur, rubs Murmur grade: 3 GI/Abdominal exam: PRESENT: normal bowel sounds, soft. ABSENT: distended, guarding, mass, organomegaly, rebound, tenderness Extremities exam: ABSENT: pedal edema Neurological exam: PRESENT: alert, awake, remain nonverbal, and less involved in self care due to her recent stroke. Psychiatric exam: PRESENT: depressed. ABSENT: homicidal ideation, suicidal ideation Skin exam: PRESENT: dry, warm Murmur grade: 3 Results Laboratory Results: 12/06/19 06:30 12/07/19 06:00 12/06/19 12/07/19 09:23 06:00 Sodium 130.5 L 130.7 L Potassium 5.1 H 4.5 Chloride 99 98 Carbon Dioxide 24 24 Anion Gap 8 9 BUN 17 19 Creatinine 0.82 0.87 Est GFR ( Amer) > 60 > 60 Glucose 92 87 Calcium 8.6 8.2 L 11/28/19 11/28/19 18:41 20:20 Troponin I Cancelled < 0.012 Impressions: Chest X-Ray 11/28/19 17:57 IMPRESSION: No acute pulmonary findings. KUB X-Ray 12/03/19 00:00 IMPRESSION: NO RADIOGRAPHIC EVIDENCE FOR ACUTE ABDOMINAL DISEASE. Marked constipation. Head CT 12/05/19 00:00 IMPRESSION: Acute infarction without hemorrhage or significant mass effect left frontal lobe. 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 Microvascular ischemia. EVIDENCE OF ACUTE STROKE: YES. LEFT BROOKE. Assessment & Plan - Diagnosis (1) E. coli UTI (urinary tract infection) Is this a current diagnosis for this admission?: Yes (2) Toxic metabolic encephalopathy Is this a current diagnosis for this admission?: Yes (3) Adult failure to thrive syndrome Is this a current diagnosis for this admission?: Yes (4) Diabetes mellitus type 2 in nonobese Is this a current diagnosis for this admission?: Yes (5) HTN (hypertension) Qualifiers: Hypertension type: essential hypertension Qualified Code(s): I10 - Essential (primary) hypertension Is this a current diagnosis for this admission?: Yes (6) CAD (coronary artery disease), [place] coronary artery Qualifiers: [place] vs. transplanted heart: [place] heart Associated angina: without angina Qualified Code(s): I25.10 - Atherosclerotic heart disease of [place] coronary artery without angina pectoris Is this a current diagnosis for this admission?: Yes (7) Anemia of chronic disease Is this a current diagnosis for this admission?: Yes (8) Dementia in Alzheimer's disease with depression Is this a current diagnosis for this admission?: Yes (9) Constipation Qualifiers: Constipation type: unspecified constipation type Qualified Code(s): K59.00 - Constipation, unspecified Is this a current diagnosis for this admission?: Yes - Time Time Spent with patient: 25-34 minutes Level of Care: IMCU Medications reviewed and adjusted accordingly: Yes Anticipated discharge: Home with Homehealth, SNF Within: Other - Inpatient Certification Based on my medical assessment, after consideration of the patient's comorbidities, presenting symptoms, or acuity I expect that the services needed warrant INPATIENT care.: Yes I certify that my determination is in accordance with my understanding of [facility]'s requirements for reasonable and necessary INPATIENT services [42 CFR 412.3e].: Yes Medical Necessity: Significant Comorbidiites Make Outpatient Treatment Too Risky, Need Close Monitoring Due to Risk of Patient Decompensation, Need For IV Fluids, Need For Continuous Telemetry Monitoring, Risk of Complication if Not Cared For in Hospital, Risk of Diagnosis Which Will Require Inpatient Eval/Care/Monitoring Post Hospital Care: D/C or Transfer Summary - Plan Summary Plan Summary: Continue supportive care. D/C banana fluid infusion after tonight dose. Start on Vitamin B complex tablet 1 po daily in AM. Follow up on short term SNF placement.
[2019-12-07] MEDS: ATORVASTATIN CALCIUM 40 MG TABLET PO SCH (22:00)
[2019-12-08] MEDS: INSULIN REG, HUMAN 100 UNIT/ML 3 ML VIAL (PYX) SUBCUT SCH ×5 (00:28→23:22)
[2019-12-08] MEDS: LATANOPROST 0.005% OPH SOLN 2.5 ML OU SCH (00:29)
[2019-12-08] MEDS: PANTOPRAZOLE SODIUM 40 MG TABLET.DR PO SCH (05:28)
[2019-12-08] MEDS: ACETAMINOPHEN 325 MG TABLET PO PRN ×2 (05:28→18:34)
[2019-12-08 06:05] LABS: ANION GAP 8 (5-19); BLOOD UREA NITROGEN 17 mg/dL (7-20); CALCIUM 8.3 mg/dL (8.4-10.2); CARBON DIOXIDE 24 mmol/L (22-30); CHLORIDE 100 mmol/L (98-107); GLUCOSE 96 mg/dL (75-110); POTASSIUM 4.6 mmol/L (3.6-5.0)
[2019-12-08] MEDS: ENOXAPARIN SODIUM INJ 30 MG/0.3 ML DISP.SYRIN SUBCUT SCH (09:43)
[2019-12-08] MEDS: ASPIRIN 325 MG TABLET PO SCH (09:45)
[2019-12-08] MEDS: POLYETHYLENE GLYCOL 3350 POWDER 17 GM/1 PACKET PO SCH (09:45)
[2019-12-08] MEDS: TIMOLOL MALEATE 0.5% OPH SOLN 5 ML OU SCH ×2 (09:49→23:36)
[2019-12-08] MEDS: BRIMONIDINE TARTRATE 0.2% OPH SOLN 5 ML OU SCH ×2 (09:49→23:37)
[2019-12-08] MEDS: VITAMIN B COMPLEX TABLET PO SCH (10:00)
[2019-12-08] MEDS: NORMAL SALINE 1000 ML 1,000 ML IV PRN (13:25)
[2019-12-08] MEDS ORDERED: MORPHINE SULFATE 10 MG/ML INJ IV ONE (22:00)
[2019-12-08] MEDS: ATORVASTATIN CALCIUM 40 MG TABLET PO SCH (23:35)
[2019-12-09] MEDS: LATANOPROST 0.005% OPH SOLN 2.5 ML OU SCH ×2 (01:49→21:59)
[2019-12-09] MEDS: NORMAL SALINE 1000 ML 1,000 ML IV PRN ×2 (03:18→17:40)
[2019-12-09] MEDS: ACETAMINOPHEN 325 MG TABLET PO PRN (03:33)
[2019-12-09] MEDS: PANTOPRAZOLE SODIUM 40 MG TABLET.DR PO SCH (06:08)
[2019-12-09] MEDS: INSULIN REG, HUMAN 100 UNIT/ML 3 ML VIAL (PYX) SUBCUT SCH ×4 (09:19→21:53)
[2019-12-09] MEDS: ASPIRIN 325 MG TABLET PO SCH (09:30)
[2019-12-09] MEDS: DOCUSATE SODIUM 100 MG CAPSULE PO SCH (09:30)
[2019-12-09] MEDS: VITAMIN B COMPLEX TABLET PO SCH (09:31)
[2019-12-09] MEDS: POLYETHYLENE GLYCOL 3350 POWDER 17 GM/1 PACKET PO SCH (09:31)
[2019-12-09] MEDS: TIMOLOL MALEATE 0.5% OPH SOLN 5 ML OU SCH ×2 (09:31→21:58)
[2019-12-09] MEDS: BRIMONIDINE TARTRATE 0.2% OPH SOLN 5 ML OU SCH ×2 (09:31→21:57)
[2019-12-09] MEDS: ENOXAPARIN SODIUM INJ 30 MG/0.3 ML DISP.SYRIN SUBCUT SCH (11:47)
[2019-12-09] MEDS: OXYCODONE-ACETAMINOPHEN 5-325 MG TABLET PO PRN ×2 (11:52→18:56)
--- NOTE | 2019-12-09 18:33 | PDOC PROGRESS REPORT ---
Subjective Progress Note for:: 12/08/19 Subjective:: No observed chest pain or difficulty with breathing. There is observed expressed pain with patient mourning upon movement and self care assistance particularly around her right hip joint site of replacement surgery. No reported fever or chills. Reason For Visit: UTI, AMS Physical Exam Vital Signs: Temp Pulse Resp BP Pulse Ox 98.3 F 86 20 160/86 H 94 12/08/19 19:46 12/08/19 19:46 12/08/19 19:46 12/08/19 19:46 12/08/19 19:46 Pulse Oximeter Nocturnal Start: 12/06/19 18:06 Freq: RTQ4 Status: Complete Protocol: Document 12/07/19 09:00 HCR (Rec: 12/07/19 09:13 HCR [id number]) Nocturnal Pulse Oximetry Equipment Usage Equipment Discontinued Oxygen Delivery Method (includes room Room Air air) O2 Sat by Pulse Oximetry (92-100) 97 Continuous SpO2 Machine # 3 Intake & Output 12/07/19 12/08/19 12/09/19 06:59 06:59 06:59 Intake Total 5447.0 2490.5 1325 Balance 5447.0 2490.5 1325 Weight 53.4 kg 58.6 kg Physical Exam: General appearance: PRESENT: no acute distress Head exam: PRESENT: atraumatic, normocephalic Eye exam: PRESENT: conjunctiva pink. ABSENT: pallor, scleral icterus Ear exam: PRESENT: normal external ear exam Mouth exam: PRESENT: moist Respiratory exam: PRESENT: clear to auscultation constantin, decreased breath sounds - at lung bases Cardiovascular exam: PRESENT: RRR, +S1, +S2, systolic murmur. ABSENT: diastolic murmur, rubs Murmur grade: 3 GI/Abdominal exam: PRESENT: normal bowel sounds, soft. ABSENT: distended, guarding, mass, organomegaly, rebound, tenderness Extremities exam: ABSENT: pedal edema Neurological exam: PRESENT: alert, awake, remain nonverbal, and less involved in self care due to her recent stroke. Psychiatric exam: PRESENT: depressed. ABSENT: homicidal ideation, suicidal ideation Skin exam: PRESENT: dry, warm, superficial skin lesion in pubic symphysis region. No drainage or discharge. No active bleeding. Murmur grade: 3 Results Laboratory Results: 12/06/19 06:30 12/08/19 05:29 12/08/19 05:29 Sodium 131.8 L Potassium 4.6 Chloride 100 Carbon Dioxide 24 Anion Gap 8 BUN 17 Creatinine 0.87 Est GFR ( Amer) > 60 Glucose 96 Calcium 8.3 L 11/28/19 11/28/19 18:41 20:20 Troponin I Cancelled < 0.012 Impressions: Chest X-Ray 11/28/19 17:57 IMPRESSION: No acute pulmonary findings. KUB X-Ray 12/03/19 00:00 IMPRESSION: NO RADIOGRAPHIC EVIDENCE FOR ACUTE ABDOMINAL DISEASE. Marked constipation. Head CT 12/05/19 00:00 IMPRESSION: Acute infarction without hemorrhage or significant mass effect left frontal lobe. 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 Microvascular ischemia. EVIDENCE OF ACUTE STROKE: YES. LEFT BROOKE. Carotid Doppler Study 12/06/19 00:00 IMPRESSION: NO HEMODYNAMICALLY SIGNIFICANT STENOSIS. Assessment & Plan - Diagnosis (1) E. coli UTI (urinary tract infection) Is this a current diagnosis for this admission?: Yes (2) Toxic metabolic encephalopathy Is this a current diagnosis for this admission?: Yes (3) Adult failure to thrive syndrome Is this a current diagnosis for this admission?: Yes (4) Diabetes mellitus type 2 in nonobese Is this a current diagnosis for this admission?: Yes (5) HTN (hypertension) Qualifiers: Hypertension type: essential hypertension Qualified Code(s): I10 - Essential (primary) hypertension Is this a current diagnosis for this admission?: Yes (6) CAD (coronary artery disease), [place] coronary artery Qualifiers: [place] vs. transplanted heart: [place] heart Associated angina: without angina Qualified Code(s): I25.10 - Atherosclerotic heart disease of [place] coronary artery without angina pectoris Is this a current diagnosis for this admission?: Yes (7) Anemia of chronic disease Is this a current diagnosis for this admission?: Yes (8) Dementia in Alzheimer's disease with depression Is this a current diagnosis for this admission?: Yes (9) Constipation Qualifiers: Constipation type: unspecified constipation type Qualified Code(s): K59.00 - Constipation, unspecified Is this a current diagnosis for this admission?: Yes (10) Chronic pain syndrome Is this a current diagnosis for this admission?: Yes Plan: D/C Tylenol usage for pain management. Administer 2 mg IV Morphine x 1 dose tonight. Start on Percocet 5/325 mg po q 6hours prn for pain management. [facility] and daughter requested for facility transfer on Friday to manage her pain and assess participation in PT session. (11) Superficial skin lesion Is this a current diagnosis for this admission?: Yes Plan: Topical antibiotic tid. Skin barer usage discussed with nursing staff. - Time Time Spent with patient: 25-34 minutes Level of Care: IMCU Medications reviewed and adjusted accordingly: Yes Anticipated discharge: SNF Within: within 48 hours, when bed available - Inpatient Certification Based on my medical assessment, after consideration of the patient's comorbidities, presenting symptoms, or acuity I expect that the services needed warrant INPATIENT care.: Yes I certify that my determination is in accordance with my understanding of Medicare's requirements for reasonable and necessary INPATIENT services [42 CFR 412.3e].: Yes Medical Necessity: Significant Comorbidiites Make Outpatient Treatment Too Risky, Need Close Monitoring Due to Risk of Patient Decompensation, Need For Continuous Telemetry Monitoring, Need for Pain Control, Risk of Diagnosis Which Will Require Inpatient Eval/Care/Monitoring Post Hospital Care: D/C or Transfer Summary - Plan Summary Plan Summary: Continue current medication management. Patient's daughter requested for stay till Friday before transfer to SNF in view of her continue right hip pain and change in medication management for pain as well as skin lesion in suprapubic region.
--- NOTE | 2019-12-09 18:38 | PDOC PROGRESS REPORT ---
Subjective Progress Note for:: 12/09/19 Subjective:: No observed chest pain or difficulty with breathing. Tolerating oral feeding with feeding assistance. No reported fever or chills. Her hip pain is fairly under control on current medication management. Family at bedside expressed wish to have hip X ray for further evaluation of her hip pain before transfer to SNF. There is history of right hip total arthroplasty. There was raised concern about HSV infection as cause of her suprapubic ulcer although family denied any prior history of similar ulcer or disease reference. Reason For Visit: UTI, AMS Physical Exam Vital Signs: Temp Pulse Resp BP Pulse Ox 97.4 F 75 20 144/51 H 91 L 12/09/19 11:03 12/09/19 14:00 12/09/19 11:03 12/09/19 11:03 12/09/19 11:03 Pulse Oximeter Nocturnal Start: 12/06/19 18:06 Freq: RTQ4 Status: Complete Protocol: Document 12/07/19 09:00 HCR (Rec: 12/07/19 09:13 HCR [email or web address]) Nocturnal Pulse Oximetry Equipment Usage Equipment Discontinued Oxygen Delivery Method (includes room Room Air air) O2 Sat by Pulse Oximetry (92-100) 97 Continuous SpO2 Machine # 3 Intake & Output 12/08/19 12/09/19 12/10/19 06:59 06:59 06:59 Intake Total 2490.5 2325 1000 Balance 2490.5 2325 1000 Weight 58.6 kg 60.7 kg Physical Exam: General appearance: PRESENT: no acute distress Head exam: PRESENT: atraumatic, normocephalic Eye exam: PRESENT: conjunctiva pink. ABSENT: pallor, scleral icterus Ear exam: PRESENT: normal external ear exam Mouth exam: PRESENT: moist Respiratory exam: PRESENT: clear to auscultation constantin, decreased breath sounds - at lung bases Cardiovascular exam: PRESENT: RRR, +S1, +S2, systolic murmur. ABSENT: diastolic murmur, rubs Murmur grade: 3 GI/Abdominal exam: PRESENT: normal bowel sounds, soft. ABSENT: distended, guarding, mass, organomegaly, rebound, tenderness Extremities exam: ABSENT: pedal edema Neurological exam: PRESENT: alert, awake, remain nonverbal, and less involved in self care due to her recent stroke. Psychiatric exam: PRESENT: depressed. ABSENT: homicidal ideation, suicidal ideation Skin exam: PRESENT: dry, warm, superficial skin lesion in pubic symphysis region. No drainage or discharge. No active bleeding. Murmur grade: 3 Results Laboratory Results: 12/06/19 06:30 12/08/19 05:29 11/28/19 11/28/19 18:41 20:20 Troponin I Cancelled < 0.012 Impressions: Chest X-Ray 11/28/19 17:57 IMPRESSION: No acute pulmonary findings. KUB X-Ray 12/03/19 00:00 IMPRESSION: NO RADIOGRAPHIC EVIDENCE FOR ACUTE ABDOMINAL DISEASE. Marked constipation. Head CT 12/05/19 00:00 IMPRESSION: Acute infarction without hemorrhage or significant mass effect left frontal lobe. 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 Microvascular ischemia. EVIDENCE OF ACUTE STROKE: YES. LEFT BROOKE. Carotid Doppler Study 12/06/19 00:00 IMPRESSION: NO HEMODYNAMICALLY SIGNIFICANT STENOSIS. Assessment & Plan - Diagnosis (1) E. coli UTI (urinary tract infection) Is this a current diagnosis for this admission?: Yes (2) Toxic metabolic encephalopathy Is this a current diagnosis for this admission?: Yes (3) Adult failure to thrive syndrome Is this a current diagnosis for this admission?: Yes (4) Diabetes mellitus type 2 in nonobese Is this a current diagnosis for this admission?: Yes (5) HTN (hypertension) Qualifiers: Hypertension type: essential hypertension Qualified Code(s): I10 - Essential (primary) hypertension Is this a current diagnosis for this admission?: Yes (6) CAD (coronary artery disease), [place] coronary artery Qualifiers: [place] vs. transplanted heart: [place] heart Associated angina: without angina Qualified Code(s): I25.10 - Atherosclerotic heart disease of [place] coronary artery without angina pectoris Is this a current diagnosis for this admission?: Yes (7) Anemia of chronic disease Is this a current diagnosis for this admission?: Yes (8) Dementia in Alzheimer's disease with depression Is this a current diagnosis for this admission?: Yes (9) Constipation Qualifiers: Constipation type: unspecified constipation type Qualified Code(s): K59.00 - Constipation, unspecified Is this a current diagnosis for this admission?: Yes (10) Chronic pain syndrome Is this a current diagnosis for this admission?: Yes (11) Superficial skin lesion Is this a current diagnosis for this admission?: Yes - Time Time Spent with patient: 25-34 minutes Level of Care: IMCU Medications reviewed and adjusted accordingly: Yes Anticipated discharge: SNF Within: Other - Inpatient Certification Based on my medical assessment, after consideration of the patient's comorbidities, presenting symptoms, or acuity I expect that the services needed warrant INPATIENT care.: Yes I certify that my determination is in accordance with my understanding of Medicare's requirements for reasonable and necessary INPATIENT services [42 CFR 412.3e].: Yes Medical Necessity: Significant Comorbidiites Make Outpatient Treatment Too Risky, Need Close Monitoring Due to Risk of Patient Decompensation, Need For IV Fluids, Need For Continuous Telemetry Monitoring, Need for Pain Control, Risk of Complication if Not Cared For in Hospital, Risk of Diagnosis Which Will Require Inpatient Eval/Care/Monitoring Post Hospital Care: D/C or Transfer Summary - Plan Summary Plan Summary: See attending physician orders for details about care plan.
--- NOTE | 2019-12-09 20:59 | RADIOLOGY REPORT (SQ) ---
EXAM DESCRIPTION: XR HIP 1 VIEW BILATERAL COMPLETED DATE/TME: 12/09/2019 00:00 CLINICAL HISTORY: 78 years Female Hip pain COMPARISON: None. TECHNIQUE: Single AP view of the pelvis and AP views of bilateral hips. FINDINGS: Total hip prosthesis on the right with anatomic alignment. There is long segment plate and screw fixation of the proximal femur without apparent fracturing or loosening of the screws. Bony demineralization limits evaluation. No acute fractures or dislocations are identified. No osseous destructive lesions. IMPRESSION: Marked bony demineralization No acute fracture is identified. CT or MRI could be obtained to better evaluate the hips if there is continued clinical concern.
[2019-12-09] MEDS: ATORVASTATIN CALCIUM 40 MG TABLET PO SCH (21:58)
[2019-12-10] MEDS: OXYCODONE-ACETAMINOPHEN 5-325 MG TABLET PO PRN ×3 (00:46→16:31)
[2019-12-10] MEDS: PANTOPRAZOLE SODIUM 40 MG TABLET.DR PO SCH (06:07)
[2019-12-10] MEDS: NORMAL SALINE 1000 ML 1,000 ML IV PRN ×2 (08:08→22:01)
[2019-12-10] MEDS: ASPIRIN 325 MG TABLET PO SCH (08:49)
[2019-12-10] MEDS: INSULIN REG, HUMAN 100 UNIT/ML 3 ML VIAL (PYX) SUBCUT SCH ×4 (09:05→21:58)
[2019-12-10] MEDS: TIMOLOL MALEATE 0.5% OPH SOLN 5 ML OU SCH ×2 (09:13→21:57)
[2019-12-10] MEDS: DOCUSATE SODIUM 100 MG CAPSULE PO SCH (09:13)
[2019-12-10] MEDS: VITAMIN B COMPLEX TABLET PO SCH (09:13)
[2019-12-10] MEDS: POLYETHYLENE GLYCOL 3350 POWDER 17 GM/1 PACKET PO SCH (09:13)
[2019-12-10] MEDS: BRIMONIDINE TARTRATE 0.2% OPH SOLN 5 ML OU SCH ×2 (09:14→21:56)
[2019-12-10] MEDS: ENOXAPARIN SODIUM INJ 30 MG/0.3 ML DISP.SYRIN SUBCUT SCH (14:35)
--- NOTE | 2019-12-10 17:29 | PDOC PROGRESS REPORT ---
Subjective Progress Note for:: 12/10/19 Subjective:: No observed chest pain or difficulty with breathing. Tolerating oral feeding with feeding assistance. No reported fever or chills. Her hip pain is fairly under control but nursing staff reported recurrent mourning before her scheduled dosing time interval. Reason For Visit: UTI, AMS Physical Exam Vital Signs: Temp Pulse Resp BP Pulse Ox 97.4 F 74 17 143/54 H 88 L 12/10/19 11:58 12/10/19 11:58 12/10/19 11:58 12/10/19 11:58 12/10/19 11:58 Pulse Oximeter Nocturnal Start: 12/06/19 18:06 Freq: RTQ4 Status: Complete Protocol: Document 12/07/19 09:00 HCR (Rec: 12/07/19 09:13 HCR [id number]) Nocturnal Pulse Oximetry Equipment Usage Equipment Discontinued Oxygen Delivery Method (includes room Room Air air) O2 Sat by Pulse Oximetry (92-100) 97 Continuous SpO2 Machine # 3 Intake & Output 12/09/19 12/10/19 12/11/19 06:59 06:59 06:59 Intake Total 2325 2666 1550 Output Total 900 1000 Balance 2325 1766 550 Weight 60.7 kg 62.3 kg 62.3 kg Physical Exam: General appearance: PRESENT: no acute distress Head exam: PRESENT: atraumatic, normocephalic Eye exam: PRESENT: conjunctiva pink. ABSENT: pallor, scleral icterus Ear exam: PRESENT: normal external ear exam Mouth exam: PRESENT: moist Respiratory exam: PRESENT: clear to auscultation constantin, decreased breath sounds - at lung bases Cardiovascular exam: PRESENT: RRR, +S1, +S2, systolic murmur. ABSENT: diastolic murmur, rubs Murmur grade: 3 GI/Abdominal exam: PRESENT: normal bowel sounds, soft. ABSENT: distended, guarding, mass, organomegaly, rebound, tenderness Extremities exam: ABSENT: pedal edema Neurological exam: PRESENT: alert, awake, remain nonverbal, and less involved in self care due to her recent stroke. Psychiatric exam: PRESENT: depressed. ABSENT: homicidal ideation, suicidal ideation Skin exam: PRESENT: dry, warm, improving superficial skin lesion in pubic symphysis region. No drainage or discharge. No active bleeding. Murmur grade: 3 Results Laboratory Results: 12/06/19 06:30 12/08/19 05:29 11/28/19 11/28/19 18:41 20:20 Troponin I Cancelled < 0.012 Impressions: Chest X-Ray 11/28/19 17:57 IMPRESSION: No acute pulmonary findings. KUB X-Ray 12/03/19 00:00 IMPRESSION: NO RADIOGRAPHIC EVIDENCE FOR ACUTE ABDOMINAL DISEASE. Marked constipation. Head CT 12/05/19 00:00 IMPRESSION: Acute infarction without hemorrhage or significant mass effect left frontal lobe. 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 Microvascular ischemia. EVIDENCE OF ACUTE STROKE: YES. LEFT BROOKE. Carotid Doppler Study 12/06/19 00:00 IMPRESSION: NO HEMODYNAMICALLY SIGNIFICANT STENOSIS. Hip X-Ray 12/09/19 00:00 IMPRESSION: Marked bony demineralization No acute fracture is identified. CT or MRI could be obtained to better evaluate the hips if there is continued clinical concern. Assessment & Plan - Diagnosis (1) E. coli UTI (urinary tract infection) Is this a current diagnosis for this admission?: Yes (2) Toxic metabolic encephalopathy Is this a current diagnosis for this admission?: Yes (3) Adult failure to thrive syndrome Is this a current diagnosis for this admission?: Yes (4) Diabetes mellitus type 2 in nonobese Is this a current diagnosis for this admission?: Yes (5) HTN (hypertension) Qualifiers: Hypertension type: essential hypertension Qualified Code(s): I10 - Essential (primary) hypertension Is this a current diagnosis for this admission?: Yes (6) CAD (coronary artery disease), [place] coronary artery Qualifiers: [place] vs. 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 Is this a current diagnosis for this admission?: Yes (9) Constipation Qualifiers: Constipation type: unspecified constipation type Qualified Code(s): K59.00 - Constipation, unspecified Is this a current diagnosis for this admission?: Yes (10) Chronic pain syndrome Is this a current diagnosis for this admission?: Yes (11) Superficial skin lesion Is this a current diagnosis for this admission?: Yes - Time Time Spent with patient: 25-34 minutes Level of Care: IMCU Medications reviewed and adjusted accordingly: Yes Anticipated discharge: SNF Within: Other - Inpatient Certification Based on my medical assessment, after consideration of the patient's comorbidities, presenting symptoms, or acuity I expect that the services needed warrant INPATIENT care.: Yes I certify that my determination is in accordance with my understanding of Medicare's requirements for reasonable and necessary INPATIENT services [42 CFR 412.3e].: Yes Medical Necessity: Significant Comorbidiites Make Outpatient Treatment Too Risky, Need Close Monitoring Due to Risk of Patient Decompensation, Need For Continuous Telemetry Monitoring, Risk of Complication if Not Cared For in Hospital, Risk of Diagnosis Which Will Require Inpatient Eval/Care/Monitoring Post Hospital Care: D/C or Transfer Summary - Plan Summary Plan Summary: Follow up on HSV serologic evaluation Discussed with family regarding concern for HSV infection and need for treatment pending definite result diagnosis, the family want to hold off starting antiviral therapy. Change Percocet to 5/325 mg 1 tablet p.o q4 hours for pain management.
[2019-12-10] MEDS: ATORVASTATIN CALCIUM 40 MG TABLET PO SCH (21:56)
[2019-12-10] MEDS: LATANOPROST 0.005% OPH SOLN 2.5 ML OU SCH (22:00)
[2019-12-11] MEDS: PANTOPRAZOLE SODIUM 40 MG TABLET.DR PO SCH (06:12)
[2019-12-11] MEDS: INSULIN REG, HUMAN 100 UNIT/ML 3 ML VIAL (PYX) SUBCUT SCH ×4 (08:09→22:13)
[2019-12-11] MEDS: ASPIRIN 325 MG TABLET PO SCH (08:13)
[2019-12-11] MEDS: OXYCODONE-ACETAMINOPHEN 5-325 MG TABLET PO PRN (08:13)
[2019-12-11] MEDS: POLYETHYLENE GLYCOL 3350 POWDER 17 GM/1 PACKET PO SCH (09:55)
[2019-12-11] MEDS: VITAMIN B COMPLEX TABLET PO SCH (09:55)
[2019-12-11] MEDS: ENOXAPARIN SODIUM INJ 30 MG/0.3 ML DISP.SYRIN SUBCUT SCH (09:55)
[2019-12-11] MEDS: BRIMONIDINE TARTRATE 0.2% OPH SOLN 5 ML OU SCH ×2 (09:56→22:18)
[2019-12-11] MEDS: DOCUSATE SODIUM 100 MG CAPSULE PO SCH (09:56)
[2019-12-11] MEDS: TIMOLOL MALEATE 0.5% OPH SOLN 5 ML OU SCH ×2 (09:56→22:17)
[2019-12-11] MEDS: NORMAL SALINE 1000 ML 1,000 ML IV PRN (09:58)
--- NOTE | 2019-12-11 19:05 | PDOC PROGRESS REPORT ---
Subjective Progress Note for:: 12/11/19 Subjective:: Patient seen by the bedside, she is admitted for the management of E. coli UTI associated with encephalopathy Reason For Visit: UTI, AMS Physical Exam Vital Signs: Temp Pulse Resp BP Pulse Ox 97.4 F 90 20 142/78 H 97 12/11/19 15:40 12/11/19 15:40 12/11/19 15:40 12/11/19 15:40 12/11/19 15:40 Pulse Oximeter Nocturnal Start: 12/06/19 18:06 Freq: RTQ4 Status: Complete Protocol: Document 12/07/19 09:00 HCR (Rec: 12/07/19 09:13 HCR [id number]) Nocturnal Pulse Oximetry Equipment Usage Equipment Discontinued Oxygen Delivery Method (includes room Room Air air) O2 Sat by Pulse Oximetry (92-100) 97 Continuous SpO2 Machine # 3 Intake & Output 12/10/19 12/11/19 12/12/19 06:59 06:59 06:59 Intake Total 2666 2788 1136 Output Total 900 3650 400 Balance 1766 -862 736 Weight 62.3 kg 58.9 kg General appearance: PRESENT: no acute distress Eye exam: PRESENT: PERRLA Respiratory exam: PRESENT: clear to auscultation constantin Cardiovascular exam: PRESENT: +S1, +S2 Murmur grade: 3 Results Laboratory Results: 12/06/19 06:30 12/08/19 05:29 11/28/19 11/28/19 18:41 20:20 Troponin I Cancelled < 0.012 Impressions: Chest X-Ray 11/28/19 17:57 IMPRESSION: No acute pulmonary findings. KUB X-Ray 12/03/19 00:00 IMPRESSION: NO RADIOGRAPHIC EVIDENCE FOR ACUTE ABDOMINAL DISEASE. Marked constipation. Head CT 12/05/19 00:00 IMPRESSION: Acute infarction without hemorrhage or significant mass effect left frontal lobe. 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 Microvascular ischemia. EVIDENCE OF ACUTE STROKE: YES. LEFT BROOKE. Carotid Doppler Study 12/06/19 00:00 IMPRESSION: NO HEMODYNAMICALLY SIGNIFICANT STENOSIS. Hip X-Ray 12/09/19 00:00 IMPRESSION: Marked bony demineralization No acute fracture is identified. CT or MRI could be obtained to better evaluate the hips if there is continued clinical concern. Assessment & Plan - Diagnosis (1) UTI (urinary tract infection) Qualifiers: Urinary tract infection type: acute cystitis Hematuria presence: with hematuria Qualified Code(s): N30.01 - Acute cystitis with hematuria Is this a current diagnosis for this admission?: Yes (2) Toxic encephalopathy Is this a current diagnosis for this admission?: Yes (3) Alzheimer's disease, unspecified Qualifiers: Alzheimer's disease onset: unspecified onset Dementia behavioral disturbance: with behavioral disturbance Qualified Code(s): G30.9 - Alzheimer's disease, unspecified; F02.81 - Dementia in other diseases classified elsewhere with behavioral disturbance Is this a current diagnosis for this admission?: Yes - Time Time Spent with patient: 15-24 minutes Level of Care: IMCU - Plan Summary Plan Summary: Continue present line of management
[2019-12-11] MEDS: LATANOPROST 0.005% OPH SOLN 2.5 ML OU SCH (22:17)
[2019-12-11] MEDS: ATORVASTATIN CALCIUM 40 MG TABLET PO SCH (22:18)
[2019-12-12] MEDS: NORMAL SALINE 1000 ML 1,000 ML IV PRN ×2 (01:00→12:22)
[2019-12-12] MEDS: OXYCODONE-ACETAMINOPHEN 5-325 MG TABLET PO PRN (02:36)
[2019-12-12] MEDS: PANTOPRAZOLE SODIUM 40 MG TABLET.DR PO SCH (05:56)
[2019-12-12] MEDS: INSULIN REG, HUMAN 100 UNIT/ML 3 ML VIAL (PYX) SUBCUT SCH ×4 (08:42→23:36)
[2019-12-12 11:08] LABS: ANION GAP 7 (5-19); BLOOD UREA NITROGEN 17 mg/dL (7-20); CALCIUM 8.7 mg/dL (8.4-10.2); CARBON DIOXIDE 27 mmol/L (22-30); CHLORIDE 100 mmol/L (98-107); GLUCOSE 112 mg/dL (75-110); POTASSIUM 4.9 mmol/L (3.6-5.0)
[2019-12-12 11:20] LABS: HEMATOCRIT 33.7 % (36.0-47.0); HEMOGLOBIN 11.3 g/dL (12.0-15.5); MEAN CORPUSCULAR HGB CONC 33.6 g/dL (32.0-36.0); MEAN CORPUSCULAR VOLUME 89 fl (80-97); RED BLOOD COUNT 3.77 10^6/uL (3.72-5.28); RED CELL DISTRIBUTION WIDTH 13.9 % (11.5-14.0); WHITE BLOOD COUNT 9.4 10^3/uL (4.0-10.5)
[2019-12-12 11:56] LABS: PLATELET COUNT 277 10^3/uL (150-450)
[2019-12-12] MEDS: ASPIRIN 325 MG TABLET PO SCH (12:19)
[2019-12-12] MEDS: DOCUSATE SODIUM 100 MG CAPSULE PO SCH (12:19)
[2019-12-12] MEDS: POLYETHYLENE GLYCOL 3350 POWDER 17 GM/1 PACKET PO SCH (12:19)
[2019-12-12] MEDS: TIMOLOL MALEATE 0.5% OPH SOLN 5 ML OU SCH ×2 (12:20→21:11)
[2019-12-12] MEDS: BRIMONIDINE TARTRATE 0.2% OPH SOLN 5 ML OU SCH ×2 (12:20→21:11)
[2019-12-12] MEDS: ENOXAPARIN SODIUM INJ 30 MG/0.3 ML DISP.SYRIN SUBCUT SCH (12:20)
[2019-12-12] MEDS: VITAMIN B COMPLEX TABLET PO SCH (12:21)
--- NOTE | 2019-12-12 18:42 | PDOC PROGRESS REPORT ---
Subjective Progress Note for:: 12/12/19 Subjective:: Patient seen by the bedside with family, there is no new concern. The HSV titer was elevated which does not mean much in terms of active infection, if the family is particularly interested if patient have HSV infection she will need to have the vaginal swab for HSV antigen PCR testing. Reason For Visit: UTI, AMS Physical Exam Vital Signs: Temp Pulse Resp BP Pulse Ox 98.0 F 102 H 16 138/89 H 93 12/12/19 15:17 12/12/19 15:17 12/12/19 15:17 12/12/19 15:17 12/12/19 15:17 Pulse Oximeter Nocturnal Start: 12/06/19 18:06 Freq: RTQ4 Status: Complete Protocol: Document 12/07/19 09:00 HCR (Rec: 12/07/19 09:13 HCR [email or web address]) Nocturnal Pulse Oximetry Equipment Usage Equipment Discontinued Oxygen Delivery Method (includes room Room Air air) O2 Sat by Pulse Oximetry (92-100) 97 Continuous SpO2 Machine # 3 Intake & Output 12/11/19 12/12/19 12/13/19 06:59 06:59 06:59 Intake Total 2788 2236 1453 Output Total 3650 1100 Balance -862 1136 1453 Weight 58.9 kg 60.2 kg General appearance: PRESENT: no acute distress Eye exam: PRESENT: PERRLA Respiratory exam: PRESENT: clear to auscultation constantin Cardiovascular exam: PRESENT: +S1, +S2 Murmur grade: 3 Neurological exam: PRESENT: alert Results Laboratory Results: 12/12/19 10:42 12/12/19 10:42 12/12/19 12/12/19 10:42 10:42 WBC 9.4 RBC 3.77 Hgb 11.3 L Hct 33.7 L MCV 89 MCH 30.0 MCHC 33.6 RDW 13.9 Plt Count 277 Sodium 133.5 L Potassium 4.9 Chloride 100 Carbon Dioxide 27 Anion Gap 7 BUN 17 Creatinine 0.79 Est GFR ( Amer) > 60 Glucose 112 H Calcium 8.7 11/28/19 11/28/19 18:41 20:20 Troponin I Cancelled < 0.012 Impressions: Chest X-Ray 11/28/19 17:57 IMPRESSION: No acute pulmonary findings. KUB X-Ray 12/03/19 00:00 IMPRESSION: NO RADIOGRAPHIC EVIDENCE FOR ACUTE ABDOMINAL DISEASE. Marked constipation. Head CT 12/05/19 00:00 IMPRESSION: Acute infarction without hemorrhage or significant mass effect left frontal lobe. 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 Microvascular ischemia. EVIDENCE OF ACUTE STROKE: YES. LEFT BROOKE. Carotid Doppler Study 12/06/19 00:00 IMPRESSION: NO HEMODYNAMICALLY SIGNIFICANT STENOSIS. Hip X-Ray 12/09/19 00:00 IMPRESSION: Marked bony demineralization No acute fracture is identified. CT or MRI could be obtained to better evaluate the hips if there is continued clinical concern. Assessment & Plan - Diagnosis (1) UTI (urinary tract infection) Qualifiers: Urinary tract infection type: acute cystitis Hematuria presence: with hematuria Qualified Code(s): N30.01 - Acute cystitis with hematuria Is this a current diagnosis for this admission?: Yes (2) Toxic encephalopathy Is this a current diagnosis for this admission?: Yes (3) Alzheimer's disease, unspecified Qualifiers: Alzheimer's disease onset: unspecified onset Dementia behavioral disturbance: with behavioral disturbance Qualified Code(s): G30.9 - Alzheimer's disease, unspecified; F02.81 - Dementia in other diseases classified elsewhere with behavioral disturbance Is this a current diagnosis for this admission?: Yes - Time Time Spent with patient: 25-34 minutes Level of Care: CU
[2019-12-12] MEDS: LATANOPROST 0.005% OPH SOLN 2.5 ML OU SCH (21:10)
[2019-12-12] MEDS: ATORVASTATIN CALCIUM 40 MG TABLET PO SCH (21:10)
[2019-12-13] MEDS: PANTOPRAZOLE SODIUM 40 MG TABLET.DR PO SCH (05:31)
[2019-12-13] MEDS: NORMAL SALINE 1000 ML 1,000 ML IV PRN (06:40)
[2019-12-13] MEDS: INSULIN REG, HUMAN 100 UNIT/ML 3 ML VIAL (PYX) SUBCUT SCH ×4 (08:20→21:38)
[2019-12-13] MEDS: OXYCODONE-ACETAMINOPHEN 5-325 MG TABLET PO PRN (10:14)
[2019-12-13] MEDS: ENOXAPARIN SODIUM INJ 30 MG/0.3 ML DISP.SYRIN SUBCUT SCH (10:15)
[2019-12-13] MEDS: POLYETHYLENE GLYCOL 3350 POWDER 17 GM/1 PACKET PO SCH (10:15)
[2019-12-13] MEDS: BRIMONIDINE TARTRATE 0.2% OPH SOLN 5 ML OU SCH ×2 (10:15→21:41)
[2019-12-13] MEDS: ASPIRIN 325 MG TABLET PO SCH (10:15)
[2019-12-13] MEDS: VITAMIN B COMPLEX TABLET PO SCH (10:15)
[2019-12-13] MEDS: TIMOLOL MALEATE 0.5% OPH SOLN 5 ML OU SCH ×2 (10:15→21:41)
[2019-12-13] MEDS: VALACYCLOVIR HCL 500 MG TABLET PO SCH ×2 (10:15→21:42)
[2019-12-13] MEDS: DOCUSATE SODIUM 100 MG CAPSULE PO SCH (10:15)
[2019-12-13] MEDS: LATANOPROST 0.005% OPH SOLN 2.5 ML OU SCH (21:40)
[2019-12-13] MEDS: ATORVASTATIN CALCIUM 40 MG TABLET PO SCH (21:41)
[2019-12-14] MEDS: OXYCODONE-ACETAMINOPHEN 5-325 MG TABLET PO PRN ×2 (00:34→08:43)
[2019-12-14] MEDS: PANTOPRAZOLE SODIUM 40 MG TABLET.DR PO SCH (05:43)
[2019-12-14] MEDS: ASPIRIN 325 MG TABLET PO SCH (08:45)
--- NOTE | 2019-12-14 08:45 | PDOC PROGRESS REPORT ---
Subjective Progress Note for:: 12/13/19 Subjective:: No observed chest pain or difficulty with breathing. Tolerating oral feeding with feeding assistance. No reported fever or chills. Reason For Visit: UTI, AMS Physical Exam Vital Signs: Temp Pulse Resp BP Pulse Ox 98.6 F 97 20 152/74 H 94 12/13/19 03:54 12/13/19 03:54 12/13/19 03:54 12/13/19 03:54 12/13/19 03:54 Pulse Oximeter Nocturnal Start: 12/06/19 18:06 Freq: RTQ4 Status: Complete Protocol: Document 12/07/19 09:00 HCR (Rec: 12/07/19 09:13 HCR [email or web address]) Nocturnal Pulse Oximetry Equipment Usage Equipment Discontinued Oxygen Delivery Method (includes room Room Air air) O2 Sat by Pulse Oximetry (92-100) 97 Continuous SpO2 Machine # 3 Intake & Output 12/12/19 12/13/19 12/14/19 06:59 06:59 06:59 Intake Total 2236 2813 Output Total 1100 400 Balance 1136 2413 Weight 60.2 kg 54.9 kg Physical Exam: General appearance: PRESENT: no acute distress Head exam: PRESENT: atraumatic, normocephalic Eye exam: PRESENT: conjunctiva pink. ABSENT: pallor, scleral icterus Ear exam: PRESENT: normal external ear exam Mouth exam: PRESENT: moist Respiratory exam: PRESENT: clear to auscultation constantin, decreased breath sounds - at lung bases Cardiovascular exam: PRESENT: RRR, +S1, +S2, systolic murmur. ABSENT: diastolic murmur, rubs Murmur grade: 3 GI/Abdominal exam: PRESENT: normal bowel sounds, soft. ABSENT: distended, guarding, mass, organomegaly, rebound, tenderness Extremities exam: ABSENT: pedal edema Neurological exam: PRESENT: alert, awake, remain nonverbal, and less involved in self care due to her recent stroke. Psychiatric exam: PRESENT: depressed. ABSENT: homicidal ideation, suicidal ideation Skin exam: PRESENT: dry, warm, improving superficial skin lesion in pubic sym physis region. No drainage or discharge. No active bleeding. Murmur grade: 3 Results Laboratory Results: 12/12/19 10:42 12/12/19 10:42 12/12/19 12/12/19 10:42 10:42 WBC 9.4 RBC 3.77 Hgb 11.3 L Hct 33.7 L MCV 89 MCH 30.0 MCHC 33.6 RDW 13.9 Plt Count 277 Sodium 133.5 L Potassium 4.9 Chloride 100 Carbon Dioxide 27 Anion Gap 7 BUN 17 Creatinine 0.79 Est GFR ( Amer) > 60 Glucose 112 H Calcium 8.7 11/28/19 11/28/19 18:41 20:20 Troponin I Cancelled < 0.012 Impressions: Chest X-Ray 11/28/19 17:57 IMPRESSION: No acute pulmonary findings. KUB X-Ray 12/03/19 00:00 IMPRESSION: NO RADIOGRAPHIC EVIDENCE FOR ACUTE ABDOMINAL DISEASE. Marked constipation. Head CT 12/05/19 00:00 IMPRESSION: Acute infarction without hemorrhage or significant mass effect left frontal lobe. 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 Microvascular ischemia. EVIDENCE OF ACUTE STROKE: YES. LEFT BROOKE. Carotid Doppler Study 12/06/19 00:00 IMPRESSION: NO HEMODYNAMICALLY SIGNIFICANT STENOSIS. Hip X-Ray 12/09/19 00:00 IMPRESSION: Marked bony demineralization No acute fracture is identified. CT or MRI could be obtained to better evaluate the hips if there is continued clinical concern. Assessment & Plan - Diagnosis (1) E. coli UTI (urinary tract infection) Is this a current diagnosis for this admission?: Yes (2) Toxic metabolic encephalopathy Is this a current diagnosis for this admission?: Yes (3) Adult failure to thrive syndrome Is this a current diagnosis for this admission?: Yes (4) Diabetes mellitus type 2 in nonobese Is this a current diagnosis for this admission?: Yes (5) HTN (hypertension) Qualifiers: Hypertension type: essential hypertension Qualified Code(s): I10 - Essential (primary) hypertension Is this a current diagnosis for this admission?: Yes (6) CAD (coronary artery disease), [place] coronary artery Qualifiers: [place] vs. transplanted heart: [place] heart Associated angina: without angina Qualified Code(s): I25.10 - Atherosclerotic heart disease of [place] coronary artery without angina pectoris Is this a current diagnosis for this admission?: Yes (7) Anemia of chronic disease Is this a current diagnosis for this admission?: Yes (8) Dementia in Alzheimer's disease with depression Is this a current diagnosis for this admission?: Yes (9) Constipation Qualifiers: Constipation type: unspecified constipation type Qualified Code(s): K59.00 - Constipation, unspecified Is this a current diagnosis for this admission?: Yes (10) Chronic pain syndrome Is this a current diagnosis for this admission?: Yes (11) Superficial skin lesion Is this a current diagnosis for this admission?: Yes (12) Positive test for herpes simplex virus (HSV) antibody Is this a current diagnosis for this admission?: Yes Plan: In view of her suprapubic region superficial ulcer and family expressed concern, I will start her on oral Valcyclovir therapy 500 mg po bid x 5 days course. - Time Time Spent with patient: 25-34 minutes Level of Care: IMCU Medications reviewed and adjusted accordingly: Yes Anticipated discharge: SNF Within: Other - Inpatient Certification Based on my medical assessment, after consideration of the patient's comorbi dities, presenting symptoms, or acuity I expect that the services needed warrant INPATIENT care.: Yes I certify that my determination is in accordance with my understanding of Medicare's requirements for reasonable and necessary INPATIENT services [42 CFR 412.3e].: Yes Medical Necessity: Significant Comorbidiites Make Outpatient Treatment Too Risky, Need Close Monitoring Due to Risk of Patient Decompensation, Need For IV Fluids, Need For Continuous Telemetry Monitoring, Risk of Complication if Not Cared For in Hospital, Risk of Diagnosis Which Will Require Inpatient Eval/Care/Monitoring Post Hospital Care: D/C Edger Hand Documentation - Plan Summary Plan Summary: Start on oral Valcyclovir 500 mg po bid x 5 days. D/C IV fluid and heplock site. Continue all other current medication management.
--- NOTE | 2019-12-14 08:52 | PDOC PROGRESS REPORT ---
Subjective Progress Note for:: 12/14/19 Subjective:: No observed chest pain or difficulty with breathing. There is persistent concern about her pain and demonstrable tachycardia. Tolerating oral feeding with feeding assistance. No reported fever or chills. Reason For Visit: UTI, AMS Physical Exam Vital Signs: Temp Pulse Resp BP Pulse Ox 97.2 F 119 H 18 144/82 H 91 L 12/14/19 07:43 12/14/19 07:43 12/14/19 07:43 12/14/19 07:43 12/14/19 07:43 Pulse Oximeter Nocturnal Start: 12/06/19 18:06 Freq: RTQ4 Status: Complete Protocol: Document 12/07/19 09:00 HCR (Rec: 12/07/19 09:13 HCR [email or web address]) Nocturnal Pulse Oximetry Equipment Usage Equipment Discontinued Oxygen Delivery Method (includes room Room Air air) O2 Sat by Pulse Oximetry (92-100) 97 Continuous SpO2 Machine # 3 Intake & Output 12/13/19 12/14/19 12/15/19 06:59 06:59 06:59 Intake Total 2813 1840 Output Total 400 1250 Balance 2413 590 Weight 54.9 kg 56.5 kg Physical Exam: General appearance: PRESENT: no acute distress Head exam: PRESENT: atraumatic, normocephalic Eye exam: PRESENT: conjunctiva pink. ABSENT: pallor, scleral icterus Ear exam: PRESENT: normal external ear exam Mouth exam: PRESENT: moist Respiratory exam: PRESENT: clear to auscultation constantin, decreased breath sounds - at lung bases Cardiovascular exam: PRESENT: RRR, +S1, +S2, systolic murmur. ABSENT: diastolic murmur, rubs Murmur grade: 3 GI/Abdominal exam: PRESENT: normal bowel sounds, soft. ABSENT: distended, guarding, mass, organomegaly, rebound, tenderness Extremities exam: ABSENT: pedal edema Neurological exam: PRESENT: alert, awake, remain nonverbal, and less involved in self care due to her recent stroke. Psychiatric exam: PRESENT: depressed. ABSENT: homicidal ideation, suicidal ideation Skin exam: PRESENT: dry, warm, improving superficial skin lesion in pubic symphysis region. No drainage or discharge. No active bleeding. Murmur grade: 3 Results Laboratory Results: 12/12/19 10:42 12/12/19 10:42 11/28/19 11/28/19 18:41 20:20 Troponin I Cancelled < 0.012 Impressions: Chest X-Ray 11/28/19 17:57 IMPRESSION: No acute pulmonary findings. KUB X-Ray 12/03/19 00:00 IMPRESSION: NO RADIOGRAPHIC EVIDENCE FOR ACUTE ABDOMINAL DISEASE. Marked constipation. Head CT 12/05/19 00:00 IMPRESSION: Acute infarction without hemorrhage or significant mass effect left frontal lobe. 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 Microvascular ischemia. EVIDENCE OF ACUTE STROKE: YES. LEFT BROOKE. Carotid Doppler Study 12/06/19 00:00 IMPRESSION: NO HEMODYNAMICALLY SIGNIFICANT STENOSIS. Hip X-Ray 12/09/19 00:00 IMPRESSION: Marked bony demineralization No acute fracture is identified. CT or MRI could be obtained to better evaluate the hips if there is continued clinical concern. Assessment & Plan - Diagnosis (1) E. coli UTI (urinary tract infection) Is this a current diagnosis for this admission?: Yes (2) Toxic metabolic encephalopathy Is this a current diagnosis for this admission?: Yes (3) Adult failure to thrive syndrome Is this a current diagnosis for this admission?: Yes (4) Diabetes mellitus type 2 in nonobese Is this a current diagnosis for this admission?: Yes (5) HTN (hypertension) Qualifiers: Hypertension type: essential hypertension Qualified Code(s): I10 - Essential (primary) hypertension Is this a current diagnosis for this admission?: Yes (6) CAD (coronary artery disease), [place] coronary artery Qualifiers: [place] vs. transplanted heart: [place] heart Associated angina: without [place]ita na Qualified Code(s): I25.10 - Atherosclerotic heart disease of [place] co ronary artery without angina pectoris Is this a current diagnosis for this admission?: Yes (7) Anemia of chronic disease Is this a current diagnosis for this admission?: Yes (8) Dementia in Alzheimer's disease with depression Is this a current diagnosis for this admission?: Yes (9) Constipation Qualifiers: Constipation type: unspecified constipation type Qualified Code(s): K59.00 - Constipation, unspecified Is this a current diagnosis for this admission?: Yes (10) Chronic pain syndrome Is this a current diagnosis for this admission?: Yes (11) Superficial skin lesion Is this a current diagnosis for this admission?: Yes (12) Positive test for herpes simplex virus (HSV) antibody Is this a current diagnosis for this admission?: Yes - Time Time Spent with patient: 25-34 minutes Level of Care: IMCU Medications reviewed and adjusted accordingly: Yes Anticipated discharge: SNF Within: Other - Inpatient Certification Based on my medical assessment, after consideration of the patient's c omorbidities, presenting symptoms, or acuity I expect that the services needed warrant INPATIENT care.: Yes I certify that my determination is in accordance with my understanding of Medicare's requirements for reasonable and necessary INPATIENT services [42 CFR 412.3e].: Yes Medical Necessity: Significant Comorbidiites Make Outpatient Treatment Too Risky, Need Close Monitoring Due to Risk of Patient Decompensation, Need For Continuous Telemetry Monitoring, Risk of Complication if Not Cared For in Hospital, Risk of Diagnosis Which Will Require Inpatient Eval/Care/Monitoring Post Hospital Care: D/C or Transfer Summary - Plan Summary Plan Summary: Juan current medication management. Possible transfer to SNF for short term rehabilitation tomorrow.
[2019-12-14] MEDS: INSULIN REG, HUMAN 100 UNIT/ML 3 ML VIAL (PYX) SUBCUT SCH ×4 (10:13→22:00)
[2019-12-14] MEDS: POLYETHYLENE GLYCOL 3350 POWDER 17 GM/1 PACKET PO SCH (10:19)
[2019-12-14] MEDS: ENOXAPARIN SODIUM INJ 30 MG/0.3 ML DISP.SYRIN SUBCUT SCH (10:19)
[2019-12-14] MEDS: DOCUSATE SODIUM 100 MG CAPSULE PO SCH (10:19)
[2019-12-14] MEDS: VITAMIN B COMPLEX TABLET PO SCH (10:19)
[2019-12-14] MEDS: BRIMONIDINE TARTRATE 0.2% OPH SOLN 5 ML OU SCH ×2 (10:24→21:54)
[2019-12-14] MEDS: VALACYCLOVIR HCL 500 MG TABLET PO SCH ×2 (10:24→21:56)
[2019-12-14] MEDS: TIMOLOL MALEATE 0.5% OPH SOLN 5 ML OU SCH ×2 (10:24→21:50)
[2019-12-14] MEDS: ACETAMINOPHEN 325 MG TABLET PO PRN (21:54)
[2019-12-14] MEDS: ATORVASTATIN CALCIUM 40 MG TABLET PO SCH (21:56)
[2019-12-14] MEDS: LATANOPROST 0.005% OPH SOLN 2.5 ML OU SCH (22:01)
[2019-12-15] MEDS: PANTOPRAZOLE SODIUM 40 MG TABLET.DR PO SCH (06:10)
--- NOTE | 2019-12-15 08:58 | PDOC TRANSFER SUMMARY ---
Impression - Admit/DC Date/PCP Admission Date/Primary Care Provider: 11/28/19 20:56 TRIXIE FELDMAN Discharge Date: 12/15/19 - Discharge Diagnosis (1) E. coli UTI (urinary tract infection) Is this a current diagnosis for this admission?: Yes (2) Toxic metabolic encephalopathy Is this a current diagnosis for this admission?: Yes (3) Adult failure to thrive syndrome Is this a current diagnosis for this admission?: Yes (4) Diabetes mellitus type 2 in nonobese Is this a current diagnosis for this admission?: Yes (5) HTN (hypertension) Is this a current diagnosis for this admission?: Yes (6) CAD (coronary artery disease), [place] coronary artery Is this a current diagnosis for this admission?: Yes (7) Anemia of chronic disease Is this a current diagnosis for this admission?: Yes (8) Dementia in Alzheimer's disease with depression Is this a current diagnosis for this admission?: Yes (9) Constipation Is this a current diagnosis for this admission?: Yes (10) Chronic pain syndrome Is this a current diagnosis for this admission?: Yes (11) Superficial skin lesion Is this a current diagnosis for this admission?: Yes (12) Positive test for herpes simplex virus (HSV) antibody Is this a current diagnosis for this admission?: Yes - Assessment Summary: Patient was admitted for altered mental status with UTI. Her stay was complicated with CAT scan confirmed development of left frontal ischemic stroke. She had dysarthria since admission with minimal improvement. Her echocardiogram and Carotid Doppler evaluation were unrevealing of vascular source for her stroke. She developed a superficial suprapubic ulcer with concern for possible HSV infection. Her antibiotic evaluation did revealed elevated HSV 1 and HSV 2 IgG Antibody. In view of her age, lack of sexual activity, and family concern, she was started on oral Valcyclovir 500 mg po bid x 5 days total. She is on day number two of treatment. She will be transferred to [facility] for short term rehabilitation. She dorene follow up in the office as instructed upon discharge from the SNF. The SNF staff should call office at [phone] for appointment before discharge from the facility. She maintain a DNR status throughout her stay during this hospitalization. - Additional Information Resuscitation Status: Do Not Resuscitate Referrals: TRIXIE FELDMAN MD [Primary Care Provider] - Follow up as needed Prescriptions: Oxycodone HCl/Acetaminophen [Percocet 5-325 mg Tablet] 1 tab PO Q4HP PRN #30 tablet PRN Reason: Pantoprazole Sodium [Protonix [address] Tablet] 40 mg PO Q6AM #30 tablet.dr Home Medications: Bimatoprost [Lumigan 0.01% Oph Soln 2.5 ml/Bottle] 1 drop OU QHS 11/29/19 Brimonidine Tartrate/Timolol [Combigan 0.2%-0.5% Eye Drops] 1 drop OU BID 11/29/19 Haloperidol [Haldol 0.5 mg Tablet] 0.5 mg PO BID 11/29/19 Irbesartan [Avapro] 300 mg PO DAILY 11/29/19 Metoprolol Tartrate [Lopressor 25 mg Tablet] 25 mg PO Q12 11/29/19 Rivastigmine [Exelon 4.6 mg/24 Hr Transdermal Patch] 1 each TD NOON 11/29/19 Sitagliptin Phosphate [Januvia 50 mg Tablet] 50 mg PO DAILY 11/29/19 Aspirin [Aspirin 325 mg Tablet] 325 mg PO WBRKFST tablet 12/15/19 Atorvastatin Calcium [Lipitor 40 mg Tablet] 40 mg PO QHS tablet 12/15/19 Docusate Sodium [Colace 100 mg Capsule] 200 mg PO DAILY capsule 12/15/19 Oxycodone HCl/Acetaminophen [Percocet 5-325 mg Tablet] 1 tab PO Q4HP PRN #30 tablet 12/15/19 Pantoprazole Sodium [Protonix [address] Tablet] 40 mg PO Q6AM #30 tablet.dr 12/15/19 Polyethylene Glycol 3350 [Miralax Powder 17 gm/Packet] 17 gm PO DAILY powd.pack 12/15/19 Valacyclovir HCl [Valtrex 500 mg Tablet] 500 mg PO Q12 4 Days tablet 12/15/19 Vitamin B Complex [Vitamin B Complex Tablet] 1 tab PO DAILY tablet 12/15/19 History of Present Illiness History of Present Illness: JOHNATHAN FUNK is a 78 year old female patient known to my practice who presented to the Ed with grand daughter complaining about change in mental state and not verbally responsive. There was concern for possible pain due to her persistent mourning as per daughter assessment. No reported fever or difficulty with breathing. she denied any odor to her urine. No associated coughing or v omiting. No diarrhea or constipation. Her initial ED evaluation revealed renal impairment and abnormal urinalysis. Her head CAT scan was devoid of any acute pathologic process but revealed chronic bilateral occipital lobe infarcts, involution and chronic small vessel ischemic changes. she was advised hospitalization for UTI with toxic encephalopathy. Her morbidities are listed below. Hospital Course Hospital Course: Patient was admitted for altered mental status with UTI. Her stay was complicated with CAT scan confirmed development of left frontal ischemic stroke. She had dysarthria since admission with minimal improvement. Her echocardiogram and Carotid Doppler evaluation were unrevealing of vascular source for her stroke. She developed a superficial suprapubic ulcer with concern for possible HSV infection. Her antibiotic evaluation did revealed elevated HSV 1 and HSV 2 IgG Antibody. In view of her age, lack of sexual activity, and family concern, she was started on oral Valcyclovir 500 mg po bid x 5 days total. She is on day number two of treatment. She will be transferred to [facility] for short term rehabilitation. She dorene follow up in the office as instructed upon discharge from the SNF. The SNF staff should call office at [phone] for appointment before discharge from the facility. She maintain a DNR status throughout her st ay during this hospitalization. Physical Exam Vital Signs: Temp Pulse Resp BP Pulse Ox 97.2 F 81 17 133/69 H 100 12/15/19 07:45 12/15/19 07:45 12/15/19 07:45 12/15/19 07:45 12/15/19 07:45 Pulse Oximeter Nocturnal Start: 12/06/19 18:06 Freq: RTQ4 Status: Complete Protocol: Document 12/07/19 09:00 HCR (Rec: 12/07/19 09:13 HCR [id number]) Nocturnal Pulse Oximetry Equipment Usage Equipment Discontinued Oxygen Delivery Method (includes room Room Air air) O2 Sat by Pulse Oximetry (92-100) 97 Continuous SpO2 Machine # 3 Intake & Output 12/14/19 12/15/19 12/16/19 06:59 06:59 06:59 Intake Total 1840 480 Output Total 1250 800 Balance 590 -320 Weight 56.5 kg 58.2 kg General appearance: PRESENT: no acute distress Head exam: PRESENT: atraumatic, normocephalic Eye exam: PRESENT: conjunctiva pink. ABSENT: pallor, scleral icterus Ear exam: PRESENT: normal external ear exam Mouth exam: PRESENT: moist Respiratory exam: PRESENT: clear to auscultation constantin, decreased breath sounds - at lung bases Cardiovascular exam: PRESENT: RRR, +S1, +S2, systolic murmur. ABSENT: diastolic murmur, rubs Murmur grade: 3 GI/Abdominal exam: PRESENT: normal bowel sounds, soft. ABSENT: distended, guarding, mass, organomegaly, rebound, tenderness Extremities exam: ABSENT: pedal edema Neurological exam: PRESENT: alert, awake, remain nonverbal, and less involved in self care due to her recent stroke. Psychiatric exam: PRESENT: depressed. ABSENT: homicidal ideation, suicidal ideation Skin exam: PRESENT: dry, warm, improving superficial skin lesion in pubic symphysis region. No drainage or discharge. No active bleeding. Results Laboratory Results: WBC 9.4 10^3/uL (4.0-10.5) 12/12/19 10:42 RBC 3.77 10^6/uL (3.72-5.28) 12/12/19 10:42 Hgb 11.3 g/dL (12.0-15.5) L 12/12/19 10:42 Hct 33.7 % (36.0-47.0) L 12/12/19 10:42 MCV 89 fl (80-97) 12/12/19 10:42 MCH 30.0 pg (27.0-33.4) 12/12/19 10:42 MCHC 33.6 g/dL (32.0-36.0) 12/12/19 10:42 RDW 13.9 % (11.5-14.0) 12/12/19 10:42 Plt Count 277 10^3/uL (150-450) 12/12/19 10:42 Lymph % (Auto) 15.6 % (13-45) 12/06/19 06:30 [place] % (Auto) 7.7 % (3-13) 12/06/19 06:30 Eos % (Auto) 5.9 % (0-6) 12/06/19 06:30 Baso % (Auto) 1.0 % (0-2) 12/06/19 06:30 Absolute Neuts (auto) 6.7 10^3/uL (1.7-8.2) 12/06/19 06:30 Absolute Lymphs (auto) 1.5 10^3/uL (0.5-4.7) 12/06/19 06:30 Absolute Monos (auto) 0.7 10^3/uL (0.1-1.4) 12/06/19 06:30 Absolute Eos (auto) 0.6 10^3/uL (0.0-0.6) 12/06/19 06:30 Absolute Basos (auto) 0.1 10^3/uL (0.0-0.2) 12/06/19 06:30 Seg Neutrophils % 69.8 % (42-78) 12/06/19 06:30 PT 14.6 SEC (11.4-15.4) 11/28/19 18:41 INR 1.13 11/28/19 18:41 APTT 31.5 SEC (23.5-35.8) 11/28/19 18:41 Sodium 133.5 mmol/L (137-145) L 12/12/19 10:42 Potassium 4.9 mmol/L (3.6-5.0) 12/12/19 10:42 Chloride 100 mmol/L (98-107) 12/12/19 10:42 Carbon Dioxide 27 mmol/L (22-30) 12/12/19 10:42 Anion Gap 7 (5-19) 12/12/19 10:42 BUN 17 mg/dL (7-20) 12/12/19 10:42 Creatinine 0.79 mg/dL (0.52-1.25) 12/12/19 10:42 Est GFR ( Amer) > 60 (>60) 12/12/19 10:42 Est GFR (Non-Af Amer) Cancelled 12/06/19 06:30 Est GFR (MDRD) Non-Af > 60 (>60) 12/12/19 10:42 Glucose 112 mg/dL (75-110) H 12/12/19 10:42 POC Glucose 92 mg/dL (70-110) 12/15/19 07:47 Lactic Acid 1.2 mmol/L (0.7-2.1) 11/28/19 19:57 Calcium 8.7 mg/dL (8.4-10.2) 12/12/19 10:42 Magnesium 2.0 mg/dL (1.6-2.3) 11/28/19 20:20 Total Bilirubin 0.4 mg/dL (0.2-1.3) 11/28/19 20:20 Direct Bilirubin 0.0 mg/dL (0.0-0.4) 11/28/19 20:20 Neonat Total Bilirubin Not Reportable 11/28/19 20:20 Neonat Direct Bilirubin Not Reportable 11/28/19 20:20 Neonat Indirect Bili Not Reportable 11/28/19 20:20 AST 28 U/L (14-36) 11/28/19 20:20 ALT 11 U/L (<35) 11/28/19 20:20 Alkaline Phosphatase 57 U/L (38-126) 11/28/19 20:20 Troponin I < 0.012 ng/mL 11/28/19 20:20 Total Protein 7.7 g/dL (6.3-8.2) 11/28/19 20:20 Albumin 4.0 g/dL (3.5-5.0) 11/28/19 20:20 EGFR Cancelled 12/06/19 06:30 Urine Color YELLOW 11/28/19 19:02 Urine Appearance SLIGHTLY-CLOUDY 11/28/19 19:02 Urine pH 5.0 (5.0-9.0) 11/28/19 19:02 Ur Specific [place] 1.016 11/28/19 19:02 Urine Protein 30 mg/dL (NEGATIVE) H 11/28/19 19:02 Urine Glucose (UA) NEGATIVE mg/dL (NEGATIVE) 11/28/19 19:02 Urine Ketones NEGATIVE mg/dL (NEGATIVE) 11/28/19 19:02 Urine Blood LARGE (NEGATIVE) H 11/28/19 19:02 Urine Nitrite (Reflex) POSITIVE (NEGATIVE) H 11/28/19 19:02 Urine Bilirubin NEGATIVE (NEGATIVE) 11/28/19 19:02 Urine Urobilinogen NEGATIVE mg/dL (<2.0) 11/28/19 19:02 Leukocyte Esterase Rfl MODERATE (NEGATIVE) H 11/28/19 19:02 Urine RBC (Auto) 16 /HPF 11/28/19 19:02 U Hyaline Cast (Auto) 23 /LPF 11/28/19 19:02 Urine Bacteria (Auto) 3+ /HPF 11/28/19 19:02 Urine WBC (Reflex) 117 /HPF 11/28/19 19:02 Urine WBC Clumps FEW /HPF 11/28/19 19:02 Squamous Epi Cells Auto <1 /HPF 11/28/19 19:02 Urine Mucus (Auto) OCC /LPF 11/28/19 19:02 Urine Ascorbic Acid 40 (NEGATIVE) H 11/28/19 19:02 Herpes Simplex Source Cancelled 12/12/19 14:20 HSV I IgG Ab 28.40 index (0.00-0.90) H 12/09/19 21:29 HSV II Specific Ab 12.10 index (0.00-0.90) H 12/09/19 21:29 HSV I DNA PCR Cancelled 12/12/19 14:20 HSV II DNA PCR Cancelled 12/12/19 14:20 11/28/19 11/28/19 18:41 20:20 Troponin I Cancelled < 0.012 Impressions: Chest X-Ray 11/28/19 17:57 IMPRESSION: No acute pulmonary findings. Head CT 11/28/19 17:57 IMPRESSION: No acute intracranial findings. 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 Similar age related involutional and chronic small vessel ischemic changes. EVIDENCE OF ACUTE STROKE: NO. KUB X-Ray 12/03/19 00:00 IMPRESSION: NO RADIOGRAPHIC EVIDENCE FOR ACUTE ABDOMINAL DISEASE. Marked constipation. Head CT 12/05/19 00:00 IMPRESSION: Acute infarction without hemorrhage or significant mass effect left frontal lobe. 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 Microvascular ischemia. EVIDENCE OF ACUTE STROKE: YES. LEFT BROOKE. Carotid Doppler Study 12/06/19 00:00 IMPRESSION: NO HEMODYNAMICALLY SIGNIFICANT STENOSIS. Hip X-Ray 12/09/19 00:00 IMPRESSION: Marked bony demineralization No acute fracture is identified. CT or MRI could be obtained to better evaluate the hips if there is continued clinical concern. Plan Health Concerns: High risk for readmission. Plan of Treatment: Transfer to SNF for short term rehabilitation Goals: Rehabilitation. Reduced readmission risk. Time Spent: Greater than 30 Minutes - Care coordination with daughter and SNF. Post discharge folow up in the office upon discharge from SNF. Stroke Is this a Stroke Patient?: Yes Stroke Pt being discharged on Anti-thrombolytic therapy?: Yes Stroke Pt being discharged on Anti-coagulation therapy?: No Reason(s) for not prescribing Anti-coagulation therapy:: Not indicated Stroke Pt being discharged on Statins?: Yes Acute Heart Failure - Is this a Heart Failure Patient?: No
[2019-12-15] MEDS: ASPIRIN 325 MG TABLET PO SCH (10:06)
[2019-12-15] MEDS: VITAMIN B COMPLEX TABLET PO SCH (10:06)
[2019-12-15] MEDS: DOCUSATE SODIUM 100 MG CAPSULE PO SCH (10:06)
[2019-12-15] MEDS: BRIMONIDINE TARTRATE 0.2% OPH SOLN 5 ML OU SCH (10:07)
[2019-12-15] MEDS: POLYETHYLENE GLYCOL 3350 POWDER 17 GM/1 PACKET PO SCH (10:08)
[2019-12-15] MEDS: ENOXAPARIN SODIUM INJ 30 MG/0.3 ML DISP.SYRIN SUBCUT SCH (10:08)
[2019-12-15] MEDS: TIMOLOL MALEATE 0.5% OPH SOLN 5 ML OU SCH (10:08)
[2019-12-15] MEDS: VALACYCLOVIR HCL 500 MG TABLET PO SCH (10:09)
[2019-12-15] MEDS: INSULIN REG, HUMAN 100 UNIT/ML 3 ML VIAL (PYX) SUBCUT SCH ×3 (10:09→16:30)
[2019-12-15] MEDS: OXYCODONE-ACETAMINOPHEN 5-325 MG TABLET PO PRN (14:53)
[2019-12-15 16:31] VITALS: BP 155/78
== END 2019-12-15 17:11 | DRG 64 ==
LOC: ER 17:49 → EH 20:56 → 5 22:28 → 3W 12-05 19:21
PROVIDERS: ADMIT Internal Medicine; ATTEND Internal Medicine Geriatric Medicine
DX: I63.521 Cerebral infarction due to unspecified occlusion or stenosis of right anterior cerebral artery (principal); G92 Toxic encephalopathy; N30.01 Acute cystitis with hematuria; B00.89 Other herpesviral infection; I25.2 Old myocardial infarction; E78.5 Hyperlipidemia, unspecified; I25.10 Atherosclerotic heart disease of native coronary artery without angina pectoris; G30.9 Alzheimer's disease, unspecified; I11.0 Hypertensive heart disease with heart failure; F02.80 Dementia in other diseases classified elsewhere, unspecified severity, without behavioral disturbance, psychotic disturbance, mood disturbance, and anxiety; B96.20 Unspecified Escherichia coli [E. coli] as the cause of diseases classified elsewhere; R62.7 Adult failure to thrive; K59.00 Constipation, unspecified; I50.9 Heart failure, unspecified; R47.1 Dysarthria and anarthria; E11.9 Type 2 diabetes mellitus without complications; G89.4 Chronic pain syndrome; F32.9 Major depressive disorder, single episode, unspecified; D64.9 Anemia, unspecified; M19.90 Unspecified osteoarthritis, unspecified site; Z96.641 Presence of right artificial hip joint; Z66 Do not resuscitate; Z95.5 Presence of coronary angioplasty implant and graft; Z98.84 Bariatric surgery status; Z88.0 Allergy status to penicillin; Z88.8 Allergy status to other drugs, medicaments and biological substances
CPT/HCPCS: 36415; 70450; 71045; 73522; 74018; 80048; 80053; 81001; 82962; 83605; 83735; 84484; 85025; 85027; 85610; 85730; 86695; 86696; 87040; 87086; 87088; 87186; 87250; 93005; 93010; 93306; 93880; 94762; 96374; 99285; J1200; J1650; J1956; J2270; J3411; J3475; J3480; J3490; J7030

== ENCOUNTER 2020-07-29 11:17 | Emergency (ER) | payer MEDICARE, MEDICAID ==
[2020-07-29 11:24] VITALS: BP 117/42
[2020-07-29 13:26] LABS: ABSOLUTE BASOPHILS # (AUTO) 0.1 10^3/uL (0.0-0.2); ABSOLUTE EOSINOPHILS # (AUTO) 0.4 10^3/uL (0.0-0.6); ABSOLUTE LYMPHOCYTES (AUTO) 1.7 10^3/uL (0.5-4.7); ABSOLUTE MONOCYTES (AUTO) 0.4 10^3/uL (0.1-1.4); ABSOLUTE NEUT (AUTO) 3.2 10^3/uL (1.7-8.2); ALKALINE PHOSPHATASE 51 U/L (38-126); ANION GAP 8 (5-19); ASPARTATE AMINO TRANSFERASE 29 U/L (14-36); BASOPHILS % (AUTO) 0.9 % (0-2); BILIRUBIN,DIRECT 0.3 mg/dL (0.0-0.4); BILIRUBIN,TOTAL 0.6 mg/dL (0.2-1.3); BLOOD UREA NITROGEN 19 mg/dL (7-20); CALCIUM 9.4 mg/dL (8.4-10.2); CARBON DIOXIDE 24 mmol/L (22-30); CHLORIDE 106 mmol/L (98-107); EOSINOPHILS % (AUTO) 6.8 % (0-6); GLUCOSE 92 mg/dL (75-110); HEMATOCRIT 29.2 % (36.0-47.0); LYMPHOCYTES % (AUTO) 28.9 % (13-45); MEAN CORPUSCULAR HEMOGLOBIN 31.1 pg (27.0-33.4); MEAN CORPUSCULAR HGB CONC 34.2 g/dL (32.0-36.0); MEAN CORPUSCULAR VOLUME 91 fl (80-97); MONOCYTES % (AUTO) 7.7 % (3-13); PLATELET COUNT 191 10^3/uL (150-450); POTASSIUM 3.9 mmol/L (3.6-5.0); RED BLOOD COUNT 3.21 10^6/uL (3.72-5.28); RED CELL DISTRIBUTION WIDTH 14.2 % (11.5-14.0); SEGMENTED NEUTROPHILS % (AUTO) 55.7 % (42-78); TOTAL CELLS COUNTED % (AUTO) 100 %; TOTAL PROTEIN 7.6 g/dL (6.3-8.2); WHITE BLOOD COUNT 5.7 10^3/uL (4.0-10.5)
--- NOTE | 2020-07-29 13:43 | RADIOLOGY REPORT (SQ) ---
EXAM DESCRIPTION: CT HEAD WITHOUT IMAGES COMPLETED DATE/TIME: 07/29/2020 1:08 pm REASON FOR STUDY: right side pain COMPARISON: 12/31/2019 TECHNIQUE: Axial images acquired through the brain without intravenous contrast. Images reviewed wit h bone, brain and subdural windows. Images stored on PACS. All CT scanners at this facility use dose modulation, iterative reconstruction, and/or weight based d osing when appropriate to reduce radiation dose to as low as reasonably achievable (ALARA). [facility]: Dose Right [facility]: CareDose [facility]: Dose Right [facility]: Teradose 4D [facility]: [employer] Technologies RADIATION DOSE: CT Rad equipment meets quality standard of care and radiation dose reduction techniq ues were employed. CTDIvol: 53.2 mGy. DLP: 1150 mGy-cm.. LIMITATIONS: Kyphotic positioning. FINDINGS: VENTRICLES: Normal size and contour. CEREBRUM: No hemorrhage. No midline shift. Stable appearance of the white matter and prior left fron kayleigh infarct. No evidence for acute large vessel infarction. CEREBELLUM: No masses. No hemorrhage. No alteration of density. No evidence for acute infarction. EXTRA-AXIAL SPACES: No fluid collections. ORBITS AND GLOBE: No intra- or extraconal masses. Normal contour of globe without masses. CALVARIUM: No fracture. PARANASAL SINUSES: No fluid or mucosal thickening. SOFT TISSUES: No mass or hematoma. OTHER: No other significant finding. IMPRESSION: No hemorrhage. No midline shift. Stable appearance of the white matter and prior left f rontal infarct. No evidence for acute large vessel infarction. EVIDENCE OF ACUTE STROKE: NO. TECHNICAL DOCUMENTATION: JOB ID: [id number] [place]-72 Quality ID # [id number]: Final reports with documentation of one or more dose reduction techniques (e.g., Au tomated exposure control, adjustment of the mA and/or kV according to patient size, use of iterative reconstruction technique) 2010 [employer]- All Rights Reserved Reading location - IP/workstation name: [email or web address]
--- NOTE | 2020-07-29 13:51 | RADIOLOGY REPORT (SQ) ---
EXAM DESCRIPTION: CHEST SINGLE VIEW IMAGES COMPLETED DATE/TIME: 07/29/2020 12:46 pm REASON FOR STUDY: right side pain COMPARISON: 11/28/2019 TECHNIQUE: Single frontal radiographic view of the chest acquired. NUMBER OF VIEWS: One view. LIMITATIONS: None. FINDINGS: LUNGS AND PLEURA: No pneumothorax. No consolidation or pleural effusion. MEDIASTINUM AND HILAR STRUCTURES: Stable. HEART AND VASCULAR STRUCTURES: Stable. BONES: No acute findings. HARDWARE: None in the chest. OTHER: No other significant finding. IMPRESSION: NO ACUTE FINDINGS. TECHNICAL DOCUMENTATION: JOB ID: [id number] [id number] 2010 [employer]- All Rights Reserved Reading location - IP/workstation name: [email or web address]
--- NOTE | 2020-07-29 14:11 | ER Document Report ---
ED General - General Chief Complaint: Weakness Stated Complaint: RIGHT SIDE BODY PAIN Time Seen by Provider: 07/29/20 12:21 Primary Care Provider: TRIXIE FELDMAN MD [Primary Care Provider] - Follow up as needed TRAVEL OUTSIDE OF THE [place] IN LAST 30 DAYS: No - HPI Notes: Chief complaint: Cramping right upper and lower extremity History of present illness: 79-year-old female brought to the emergency department today by her daughter for evaluation of cramping discomfort of the right upper and lower extremity progressively worse over the last 5 days. This lady has previously had a devastating left frontal CVA with residual right hemiparesis and severe dysarthria. She is followed by Dr. Feldman. She is on DNR/DNI status. She is totally bedridden. 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 Daughter says she also has "bad arthritis" and she has been having a lot more cramping and discomfort of right arm and leg here recently. She has been using Aspercreme with some partial relief of symptoms at home. She also notes the patient has been prone to recurrent urinary tract infections and she would like to have her checked for UTI today. No fever. No vomiting. No cough. No complaint of any chest pain. Patient is primarily obtained from the patient's daughter and review of old records because of the patient's ongoing speech impairment related to previous CVA. - Related Data Allergies/Adverse Reactions: Penicillins Allergy (Mild, Verified 04/17/17 07:32) prednisone Allergy (Mild, Verified 04/17/17 07:32) Past Medical History - General Information source: Patient, Relative, [facility] Records - Social History Smoking Status: Never Smoker Frequency of alcohol use: None Lives with: Family Family History: Hypertension - Past Medical History Cardiac Medical History: Reports: Hx Congestive Heart Failure, Hx Coronary Artery Disease, Hx Heart Attack - JANUARY 2013, Hx Hypercholesterolemia, Hx Hypertension Pulmonary Medical History: Reports: Hx Asthma Denies: Hx Tuberculosis Neurological Medical History: Reports: Hx Seizures - 2016. Denies: Hx Cerebrovascular Accident Endocrine Medical History: Reports: Hx Diabetes Mellitus Type 2 Renal/ Medical History: Reports: Hx Kidney Stones. Denies: Hx Peritoneal Dialysis GI Medical History: Denies: Hx Hepatitis, Hx Hiatal Hernia, Hx Ulcer Musculoskeletal Medical History: Reports Hx Arthritis Psychiatric Medical History: Reports: Hx Dementia, Hx Depression Infectious Medical History: Denies: Hx Hepatitis Past Surgical History: Reports: Hx Cardiac Catheterization, Hx Coronary Stent - 2002, 2013, Hx Orthopedic Surgery - TOTAL RIGHT HIP. Denies: Hx Appendectomy, Hx Bowel Surgery, Hx Section, Hx Cholecystectomy, Hx Coronary Artery Bypass Graft, Hx Gastric Bypass Surgery, Hx Herniorrhaphy, Hx Hysterectomy, Hx Mastectomy, Hx Open Heart Surgery, Hx Pacemaker, Hx Tonsillectomy, Hx Tubal Ligation - Immunizations Hx Diphtheria, Pertussis, Tetanus Vaccination: Yes Hx Pneumococcal Vaccination: 07/04/11 Review of Systems - Review of Systems -: Yes ROS unobtainable due to patient's medical condition Physical Exam - Vital signs Vitals: Temp Pulse Resp BP Pulse Ox 98.1 F 73 18 117/42 L 100 07/29/20 11:22 07/29/20 11:22 07/29/20 11:22 07/29/20 11:22 07/29/20 11:22 - Notes Notes: GENERAL: Frail elderly female with contractures of the upper and lower extremity and severe 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 SKIN: Good turgor no rashes. HEAD: Normocephalic atraumatic. EYES: PERRLA. EOMI. Conjunctivae and sclerae clear. EARS: CANALS AND TMS CLEAR. NOSE: CLEAR. MOUTH: Moist mucosa. Good dentition. No stridor or edema. No drooling. NECK: Supple. No masses or thyromegaly. No adenopathy. Carotids 2+ without bruits. No JVD. BACK: Symmetrical without tenderness. CHEST: Respirations unlabored. Breath sounds clear and symmetrical. HEART: Regular rhythm. No murmur gallop or rub. ABDOMEN: Soft nontender without masses, organomegaly or rebound. Bowel sounds normally active. No bruits. GENITALIA: Deferred. EXTREMITIES: Contracture right upper and lower extremity. No edema. No calf tenderness. Cap refill less than 1.5 seconds. Dorsalis pedis and posterior tibial pulses 3+ and symmetrical. NEUROLOGICAL: GCS 15. Alert and oriented x3. Residual dysarthria from previous stroke. Cranial nerves II through XII intact. Old right hemiparesis and right hemisensory deficit. Motor function left upper and lower extremity intact. PSYCHIATRIC: Flat affect. Course - Re-evaluation Re-evalutation: 07/29/20 16:06 Patient has evidence of UTI. The rest of her labs are remarkable only for her pre-existing anemia with a hemoglobin around [address] shows stigmata of old CVA with no new findings. Her chest x-ray is unremarkable. I reviewed all findings with her daughter. I think she is having aggravation of her musculoskeletal discomfort in her upper and lower extremity related to her old stroke now acutely exacerbated by presence of urinary tract infection. I will treat this lady with some Macrobid. I am also going to give them a Lidoderm patch. Stay on all of her usual medications and follow-up with her primary care physician this week. I would again wonder if some home physical therapy services might be helpful here but they can take that up with primary care physician. Findings, clinical impression and plan of treatment have been discussed with patient/family. Understanding of current findings and recommendations has been acknowledged by them and there is agreement regarding disposition and follow-up. - Vital Signs Vital signs: Temp Pulse Resp BP Pulse Ox 98.1 F 73 18 117/42 L 100 07/29/20 11:22 07/29/20 11:22 07/29/20 11:22 07/29/20 11:22 07/29/20 11:22 - Laboratory Result Diagrams: 07/29/20 12:44 07/29/20 12:44 Laboratory results interpreted by me: 07/29/20 07/29/20 07/29/20 12:44 12:44 14:20 RBC 3.21 L Hgb 10.0 L Hct 29.2 L RDW 14.2 H Eos % (Auto) 6.8 H Est GFR (MDRD) Non-Af 52 L Urine Blood MODERATE H Leukocyte Esterase Rfl TRACE H Urine Ascorbic Acid 40 H Discharge - Discharge Clinical Impression: Urinary tract infection, Chronic pain syndrome, Old CVA Dementia Qualifiers: Dementia type: vascular dementia Dementia behavioral disturbance: without behavioral disturbance Qualified Code(s): F01.50 - Vascular dementia without behavioral disturbance Clinical Impression: (Ruled Out): Old cerebrovascular accident (CVA) without late effect Condition: Stable Disposition: HOME, SELF-CARE Additional Instructions: Take prescribed medication. Follow-up with your doctor within the next 1 week. Return here as needed for new or worsening symptoms: Pain that is worsening or unimproved Uncontrolled vomiting High fever or shaking chills Overall worsening Prescriptions: Lidocaine [Lidoderm 5% (700 mg) Transdermal Patch] 1 patch TP DAILY #30 adh..patch Nitrofurantoin Monohyd/M-Cryst [Macrobid 100 mg Capsule] 100 mg PO BID 10 Days #20 cap Referrals: TRIXIE FELDMAN MD [Primary Care Provider] - Follow up as needed
[2020-07-29 14:40] LABS: APPEARANCE,URINE CLEAR; BILIRUBIN,URINE NEGATIVE (NEGATIVE); COLOR,URINE YELLOW; GLUCOSE, URINE NEGATIVE (NEGATIVE); KETONES,URINE NEGATIVE (NEGATIVE); PROTEIN,URINE NEGATIVE (NEGATIVE); URINE SPECIFIC GRAVITY 1.015; UROBILINOGEN,URINE NEGATIVE mg/dL (<2.0)
--- NOTE | 2020-07-29 21:51 | EKG REPORT ---
SEVERITY:- ABNORMAL ECG - SINUS RHYTHM FIRST DEGREE AV BLOCK PROBABLE ANTEROSEPTAL INFARCT, AGE INDETERM LATERAL LEADS ARE ALSO INVOLVED : Confirmed by: Nika Peoples MD 29-Jul-2020 21:50:09
== END 2020-07-29 17:13 | disposition home or self-care (01) ==
LOC: ER 11:17
DX: F01.50 Vascular dementia, unspecified severity, without behavioral disturbance, psychotic disturbance, mood disturbance, and anxiety (principal); N39.0 Urinary tract infection, site not specified; G89.4 Chronic pain syndrome; R53.1 Weakness; R25.2 Cramp and spasm; M79.601 Pain in right arm; Z86.73 Personal history of transient ischemic attack (TIA), and cerebral infarction without residual deficits; Z88.0 Allergy status to penicillin; Z88.8 Allergy status to other drugs, medicaments and biological substances; I50.9 Heart failure, unspecified; I25.10 Atherosclerotic heart disease of native coronary artery without angina pectoris; I25.2 Old myocardial infarction; I11.0 Hypertensive heart disease with heart failure; E11.9 Type 2 diabetes mellitus without complications
CPT/HCPCS: 36415; 70450; 71045; 80053; 81001; 83735; 84484; 85025; 87086; 93005; 93010; 99285